=== PATIENT | male | born 1945 | race Hispanic/Latino ===

== ENCOUNTER 2020-04-30 09:30 | Emergency (ER) | payer MEDICARE, OTHER ==
[2020-04-30 12:25] LABS: Absolute Lymphocytes (CBC) 0.4 K/uL (0.7-4.9); Basophils % 0.2 % (0-1.3); Hematocrit 40.5 % (39.6-49.0); MPV 7.1 fL (7.6-11.3); RBC Red Blood Cell Count 4.58 M/uL (4.33-5.43)
[2020-04-30] MEDS ORDERED: NA CHLORIDE 0.9% 250 ML ONE (12:25)
[2020-04-30] MEDS ORDERED: CEFTRIAXONE/SWI 1gm 1 GM/10 ML SYR ONE (12:25)
[2020-04-30] MEDS ORDERED: AZITHROMYCIN 500 MG INJ IVPB ONE (12:25)
[2020-04-30 12:37] LABS: BUN Blood Urea Nitrogen 8 mg/dL (7-18); Bicarbonate 28 mmol/L (21-32); Glucose Level 103 mg/dL (74-106); Sodium Level 134 mmol/L (136-145)
--- NOTE | 2020-04-30 12:41 | RAD REPORT ---
EXAM DESCRIPTION: RAD - Chest Single View - 04/30/2020 11:08 am CLINICAL HISTORY: COUGH Chest pain. COMPARISON: Chest Pa And Lat (2 Views) dated 04/13/2020; CHEST SINGLE VIEW dated 03/14/2007; CHEST PA AN D LAT 2 VIEW dated 08/25/2000 FINDINGS: Portable technique limits examination quality. Moderate bilateral pulmonary opacities are present, most significant in the left upper lobe, most com patible with pneumonia. The heart is normal in size. No displaced fractures.
--- NOTE | 2020-04-30 13:07 | EDPHYS ---
Physician Documentation [facility] Name: Pipo Fabian Age: 74 yrs Sex: Male : 1945 Arrival Date: 04/30/2020 Time: 09:37 Bed 14 Private MD: ED Physician Jarad Hinson HPI: 04/30 10:17 This 74 yrs old Male presents to ER via Ambulatory with complaints of Cough. kb 10:17 The patient or guardian reports cough, that is intermittent, described as mild, with no kb sputum, difficulty breathing. Onset: The symptoms/episode began/occurred 2 week(s) ago. Severity of symptoms: At their worst the symptoms were moderate, in the emergency department the symptoms are unchanged. Modifying factors: The symptoms are alleviated by nothing, the symptoms are aggravated by nothing. Associated signs and symptoms: Pertinent negatives: chest pain, diarrhea, ear ache, fever, nausea, rhinorrhea, sore throat, vomiting. The patient has not experienced similar symptoms in the past. The patient has not recently seen a physician. Pt reports cough and mild shortness of breath for 2 weeks. Has been tested for COVID twice at the [facility], both negative. Historical: - Allergies: 10:00 No Known Allergies; ss - PMHx: 10:00 Anxiety; ss - Immunization history:: Adult Immunizations up to date. - Social history:: Smoking status: Patient denies any tobacco usage or history of. ROS: 10:16 Constitutional: Negative for fever, chills, and weight loss, Neck: Negative for injury, kb pain, and swelling, Cardiovascular: Negative for chest pain, palpitations, and edema, Abdomen/GI: Negative for abdominal pain, nausea, vomiting, diarrhea, and constipation, Back: Negative for injury and pain, MS/Extremity: Negative for injury and deformity, Skin: Negative for injury, rash, and discoloration, Neuro: Negative for headache, weakness, numbness, tingling, and seizure. 10:16 Respiratory: Positive for cough, shortness of breath, Negative for dyspnea on exertion, hemoptysis, orthopnea, pleurisy, sputum production, wheezing. Exam: 10:16 Constitutional: This is a well developed, well nourished patient who is awake, alert, kb and in no acute distress. Head/Face: Normocephalic, atraumatic. Chest/axilla: Normal chest wall appearance and motion. Nontender with no deformity. No lesions are appreciated. Cardiovascular: Regular rate and rhythm with a normal S1 and S2. No gallops, murmurs, or rubs. Normal PMI, no JVD. No pulse deficits. Respiratory: Lungs have equal breath sounds bilaterally, clear to auscultation and percussion. No rales, rhonchi or wheezes noted. No increased work of breathing, no retractions or nasal flaring. Abdomen/GI: Soft, non-tender, with normal bowel sounds. No distension or tympany. No guarding or rebound. No evidence of tenderness throughout. Skin: Warm, dry with normal turgor. Normal color with no rashes, no lesions, and no evidence of cellulitis. MS/ Extremity: Pulses equal, no cyanosis. Neurovascular intact. Full, normal range of motion. Neuro: Awake and alert, GCS 15, oriented to person, place, time, and situation. Cranial nerves II-XII grossly intact. Motor strength 5/5 in all extremities. Sensory grossly intact. Cerebellar exam normal. Normal gait. Vital Signs: 09:57 BP 126 / 77; Pulse 94; Resp 26; Temp 98.5(TE); Pulse Ox 95% on R/A; Pain 0/10; ss 11:00 BP 126 / 74; Pulse 81; Resp 24; Pulse Ox 96% on R/A; ph 12:00 BP 129 / 79; Pulse 85; Resp 22; Pulse Ox 96% on R/A; ll1 13:00 BP 108 / 63; Pulse 82; Resp 21; Pulse Ox 95% ; ll1 14:00 BP 114 / 73; Pulse 80; Resp 21; Pulse Ox 96% ; ll1 14:35 BP 114 / 70; Pulse 83; Resp 20; Temp 98.0; Pulse Ox 96% on R/A; Pain 0/10; ll1 MDM: 09:43 Patient medically screened. jerry 10:17 Data reviewed: vital signs, nurses notes. Data interpreted: Pulse oximetry: on room air kb is 95 %. Interpretation: normal. 13:05 Data reviewed: I have discussed the patient's presentation/case with the attending Emergency Department Physician;. Counseling: I had a detailed discussion with the patient and/or guardian regarding: the historical points, exam findings, and any diagnostic results supporting the discharge/admit diagnosis, lab results, radiology results, the need for outpatient follow up, a family practitioner, to return to the emergency department if symptoms worsen or persist or if there are any questions or concerns that arise at home. ED course: No resp distress. Resp even and unlabored. O2 sat 96-98% on room air. Will discharge with decadron, albuterol inhaler prn, and zithromax. Pt to return for worsening symptoms. 04/30 11:12 Order name: CBC with Diff; Complete Time: 13:15 kb 04/30 11:12 Order name: Basic Metabolic Panel; Complete Time: 12:37 kb 04/30 11:12 Order name: Blood Culture Adult (2) kb 04/30 11:12 Order name: Procalcitonin; Complete Time: 13:00 kb 04/30 11:12 Order name: Lactate; Complete Time: 12:53 kb 04/30 12:26 Order name: CBC Smear Scan; Complete Time: 13:15 EDMS 04/30 09:42 Order name: Chest Single View XRAY; Complete Time: 12:53 kb 04/30 11:12 Order name: IV Start; Complete Time: 12:17 kb 04/30 12:38 Order name: COVID-19 kb Administered Medications: 13:12 Drug: Zithromax 500 mg Route: IVPB; Infused Over: 1 hrs; Site: right antecubital; ll1 14:07 Follow up: Response: No adverse reaction; RASS: Alert and Calm (0); IV Status: ll1 Completed infusion; IV Intake: 250ml 13:12 Drug: Rocephin 1 grams Route: IV; Rate: calculated rate; Site: right antecubital; ll1 14:08 Follow up: Response: No adverse reaction; RASS: Alert and Calm (0); IV Status: ll1 Completed infusion; IV Intake: 20ml 13:49 Drug: Decadron - Dexamethasone 10 mg Route: IVP; Site: right antecubital; ll1 14:23 Follow up: Response: No adverse reaction; RASS: Alert and Calm (0) ll1 Disposition: 18:10 Co-signature as Attending Physician, Jarad PURDY I agree with the assessment and virgilio plan of care. Disposition: 04/30/20 13:06 Discharged to Home. Impression: Pneumonia, unspecified organism. - Condition is Stable. - Discharge Instructions: Community-Acquired Pneumonia, Adult, [id number]. - Prescriptions for Albuterol Sulfate 90 mcg/actuation - inhale 1-2 puff by INHALATION route every 4-6 hours; 1 Inhaler. Zithromax 500 mg Oral Tablet - take 1 tablet by ORAL route once daily for 5 days; 5 tablet. dexamethasone 2 mg Oral tablet - take 1 tablet by ORAL route 3 times per day for 5 days; 15 tablet. - Medication Reconciliation Form, Thank You Letter, Antibiotic Education, Prescription Opioid Use form. - Follow up: Emergency Department; When: As needed; Reason: Worsening of condition. Follow up: Private Physician; When: 2 - 3 days; Reason: Recheck today's complaints, Continuance of care, Re-evaluation by your physician. Addendum: 05/03/2020 07:25 Addendum: Contacted pt \T\ [phone], feeling the same, notified patient of positive COVID-19 rn test result. Return precautions given and understood. [facility] health department will be contacting for further information and prrof of positive test. . Signatures: Dispatcher [employer] EDMS Olivia Freeman, PROCESS CONTROLLER-C PROCESS CONTROLLER-Ckb Jarad Hinson MD MD cha Nieto, Roman, MD MD rn Smirch, Shelby, RN RN ss Lewis, Lynsay, RN RN ll1 Corrections: (The following items were deleted from the chart) 04/30 14:59 13:06 04/30/2020 13:06 Discharged to Home. Impression: Pneumonia, unspecified organism. ll1 Condition is Stable. Forms are Medication Reconciliation Form, Thank You Letter, Antibiotic Education, Prescription Opioid Use. Follow up: Emergency Department; When: As needed; Reason: Worsening of condition. Follow up: Private Physician; When: 2 - 3 days; Reason: Recheck today's complaints, Continuance of care, Re-evaluation by your physician. kb
--- NOTE | 2020-04-30 13:07 | ER ---
Nurse's Notes [facility] Name: Pipo Fabian Age: 74 yrs Sex: Male : 1945 Arrival Date: 04/30/2020 Time: 09:37 Bed 14 Private MD: Diagnosis: Pneumonia, unspecified organism Presentation: 04/30 09:57 Chief complaint: Patient states: painful cough and shortness of breath x 2 weeks. ss Tested negative for covid when symptoms started, and was tested again two days after that at the [facility], but is unsure of those results as of yet. Denies fever. Coronavirus screen: Patient reports a cough. Patient reports shortness of breath or difficulty breathing. Patient denies measured and/or subjective temperature greater than 100.4F prior to today's visit. Patient denies travel on a cruise ship or to a country the [facility] currently lists as an affected area. Patient denies contact with known and/or suspected case of COVID-19. Ebola Screen: Patient denies exposure to infectious person. Patient denies travel to an Ebola-affected area in the 21 days before illness onset. Initial Sepsis Screen: Does the patient meet any 2 criteria? No. Patient's initial sepsis screen is negative. Does the patient have a suspected source of infection? No. Patient's initial sepsis screen is negative. Risk Assessment: Do you want to hurt yourself or someone else? Patient reports no desire to harm self or others. Onset of symptoms was April 15, 2020. 09:57 Method Of Arrival: Ambulatory 09:57 Acuity: DANYA 3 ss Historical: - Allergies: 10:00 No Known Allergies; ss - PMHx: 10:00 Anxiety; ss - Immunization history:: Adult Immunizations up to date. - Social history:: Smoking status: Patient denies any tobacco usage or history of. Screenin:01 Abuse screen: Denies threats or abuse. Denies injuries from another. Nutritional ph screening: No deficits noted. Tuberculosis screening: No symptoms or risk factors identified. Fall Risk None identified. Assessment: 10:59 General: Appears in no apparent distress. comfortable, well groomed, Behavior is calm, ph cooperative, appropriate for age, Denies fever. Pain: Complains of pain in back and chest, with cough. Neuro: Level of Consciousness is awake, alert, obeys commands, Oriented to person, place, time, situation. Cardiovascular: Capillary refill < 3 seconds in bilateral fingers Patient's skin is warm and dry. Respiratory: Reports shortness of breath at rest cough that is persistent Airway is patent Respiratory effort is even, unlabored, Respiratory pattern is tachypnea. GI: No signs and/or symptoms were reported involving the gastrointestinal system. Derm: Skin is intact, is healthy with good turgor, Skin is pink, warm \T\ dry. Musculoskeletal: Circulation, motion, and sensation intact. Range of motion: intact in all extremities. 12:00 Reassessment: Patient appears in no apparent distress at this time. No changes from ll1 previously documented assessment. Patient and/or family updated on plan of care and expected duration. Pain level reassessed. Patient is alert, oriented x 3, equal unlabored respirations, skin warm/dry/pink. 13:00 Reassessment: Patient appears in no apparent distress at this time. No changes from ll1 previously documented assessment. Patient and/or family updated on plan of care and expected duration. Pain level reassessed. Patient is alert, oriented x 3, equal unlabored respirations, skin warm/dry/pink. 14:00 Reassessment: Patient appears in no apparent distress at this time. No changes from ll1 previously documented assessment. Patient and/or family updated on plan of care and expected duration. Pain level reassessed. Patient is alert, oriented x 3, equal unlabored respirations, skin warm/dry/pink. 14:50 Reassessment: Patient appears in no apparent distress at this time. No changes from ll1 previously documented assessment. Patient and/or family updated on plan of care and expected duration. Pain level reassessed. Patient is alert, oriented x 3, equal unlabored respirations, skin warm/dry/pink. Vital Signs: 09:57 BP 126 / 77; Pulse 94; Resp 26; Temp 98.5(TE); Pulse Ox 95% on R/A; Pain 0/10; ss 11:00 BP 126 / 74; Pulse 81; Resp 24; Pulse Ox 96% on R/A; ph 12:00 BP 129 / 79; Pulse 85; Resp 22; Pulse Ox 96% on R/A; ll1 13:00 BP 108 / 63; Pulse 82; Resp 21; Pulse Ox 95% ; ll1 14:00 BP 114 / 73; Pulse 80; Resp 21; Pulse Ox 96% ; ll1 14:35 BP 114 / 70; Pulse 83; Resp 20; Temp 98.0; Pulse Ox 96% on R/A; Pain 0/10; ll1 ED Course: 09:37 Patient arrived in ED. fj1 09:42 Olivia Freeman FNP-C [facility]. kb 09:42 Jarad Hinson MD is Attending Physician. kb 09:48 Lexi Smith RN is Primary Nurse. ph 09:59 Triage completed. ss 10:00 Arm band placed on right wrist. ss 10:26 Chest Single View XRAY In Process Unspecified. EDMS 11:02 Patient has correct armband on for positive identification. Placed in gown. Bed in low ph position. Call light in reach. Side rails up X2. Pulse ox on. NIBP on. Door closed. Noise minimized. Warm blanket given. 12:00 Inserted saline lock: 22 gauge in right antecubital area, using aseptic technique. ll1 Blood collected. 14:50 No provider procedures requiring assistance completed. IV discontinued, intact, ll1 bleeding controlled, No redness/swelling at site. Pressure dressing applied. Administered Medications: 13:12 Drug: Zithromax 500 mg Route: IVPB; Infused Over: 1 hrs; Site: right antecubital; ll1 14:07 Follow up: Response: No adverse reaction; RASS: Alert and Calm (0); IV Status: ll1 Completed infusion; IV Intake: 250ml 13:12 Drug: Rocephin 1 grams Route: IV; Rate: calculated rate; Site: right antecubital; ll1 14:08 Follow up: Response: No adverse reaction; RASS: Alert and Calm (0); IV Status: ll1 Completed infusion; IV Intake: 20ml 13:49 Drug: Decadron - Dexamethasone 10 mg Route: IVP; Site: right antecubital; ll1 14:23 Follow up: Response: No adverse reaction; RASS: Alert and Calm (0) ll1 Intake: 14:07 IV: 250ml; Total: 250ml. ll1 14:08 IV: 20ml; Total: 270ml. ll1 Outcome: 13:06 Discharge ordered by . kb 14:59 Patient left the ED. ll1 15:03 Discharged to home ambulatory. ll1 15:03 Condition: stable 15:03 Discharge instructions given to patient, Instructed on discharge instructions, follow up and referral plans. medication usage, Demonstrated understanding of instructions, follow-up care, medications, Prescriptions given X 3. Signatures: Dispatcher [employer] EDOlivia Rosas, RADIO OPERATOR-C JENNIFER-Claire Rodriguez RN RN ss Lexi Smith RN RN Hu Hough [facility] Omega Pastor RN RN 1
[2020-04-30 13:14] LABS: Blood Morphology Comment NOT SEEN (NOT SEEN); Platelet Estimate ADEQ; Urine White Blood Cell Casts OK
[2020-04-30] MEDS ORDERED: dexAMETHasone 10 MG/ML VIAL ONE (13:32)
[2020-04-30 15:05] VITALS: TEMP 98.5
[2020-04-30 15:10] VITALS: BP 114/73; O2SAT 96
== END 2020-04-30 14:59 | disposition home or self-care (01) ==
LOC: ER 09:30
DX: U07.1 COVID-19 (principal); J18.9 Pneumonia, unspecified organism
CPT/HCPCS: 96365; 96368; 87040 ×2; 85025; 80048; 36415; 83605; 84145; 71045; 96375; 99284; U0001; J0456; J1100; J0696; J7050

== ENCOUNTER 2020-05-03 12:41 | Inpatient (IN) | payer MEDICARE, OTHER ==
--- NOTE | 2020-05-03 14:15 | RAD REPORT ---
EXAM DESCRIPTION: Sarthak Single View05/03/2020 1:53 pm CLINICAL HISTORY: Cough COMPARISON: 04/30/2020 FINDINGS: No significant change in moderate left and [id number] right pulmonary opacities The heart is normal size IMPRESSION: Moderate left and [id number] right pulmonary opacities probably Covid pneumonia
--- NOTE | 2020-05-03 14:21 | ER ---
Nurse's Notes [facility] Name: Pipo Fabian Age: 74 yrs Sex: Male : 1945 Arrival Date: 05/03/2020 Time: 12:43 Bed 15 Private MD: Diagnosis: Pneumonia, unspecified organism;Hypoxemia;Dyspnea, unspecified Presentation: 05/03 13:03 Chief complaint: Patient states: Notified this morning of a positive COVID result, jl7 reports shortness of breath. Coronavirus screen: Patient denies a cough. Patient reports shortness of breath or difficulty breathing. Patient denies measured and/or subjective temperature greater than 100.4F prior to today's visit. Patient denies travel on a cruise ship or to a country the [facility] currently lists as an affected area. Patient denies contact with known and/or suspected case of COVID-19. Patient instructed to continue to wear a mask when interacting with others. Patient moved to private room, placed in contact and droplet isolation with eye protection until further assessment. Prior COVID test collected on: 04-30-2020 results are located within the EHR/EMR. Ebola Screen: No symptoms or risks identified at this time. Initial Sepsis Screen: Does the patient meet any 2 criteria? No. Patient's initial sepsis screen is negative. Does the patient have a suspected source of infection? No. Patient's initial sepsis screen is negative. Risk Assessment: Do you want to hurt yourself or someone else? Patient reports no desire to harm self or others. Onset of symptoms was May 03, 2020. Care prior to arrival: None. 13:03 [facility] Of Ar[facility] 13:03 Acuity: DANYA 2 jl7 Triage Assessment: 13:07 General: Appears in no apparent distress. uncomfortable, Behavior is calm, cooperative, jl7 appropriate for age. Pain: Denies pain. Respiratory: Reports shortness of breath Airway is patent Respiratory effort is even, labored, Respiratory pattern is symmetrical, tachypnea. Historical: - Allergies: 13:07 No Known Allergies; jl7 - PMHx: 13:07 Anxiety; jl7 - Immunization history:: Adult Immunizations unknown. - Social history:: Smoking status: Patient denies any tobacco usage or history of. - Family history:: not pertinent. - Hospitalizations: : No recent hospitalization is reported. Screenin:30 Abuse screen: Denies threats or abuse. Denies injuries from another. Nutritional jr10 screening: No deficits noted. Tuberculosis screening: No symptoms or risk factors identified. Fall Risk IV access (20 points). Ambulatory Aid- None/Bed Rest/Nurse Assist (0 pts). Gait- Normal/Bed Rest/Wheelchair (0 pts) Mental Status- Oriented to own ability (0 pts). Assessment: 14:35 General: Appears in no apparent distress. Behavior is calm, cooperative, appropriate jr10 for age. Pain: Denies pain. Neuro: No deficits noted. Cardiovascular: No deficits noted. Respiratory: Reports shortness of breath at rest on exertion cough that is dry, Airway is patent Respiratory effort is even, unlabored, Respiratory pattern is regular, tachypnea Breath sounds are clear bilaterally. GI: No deficits noted. : No deficits noted. Derm: No deficits noted. Musculoskeletal: No deficits noted. Vital Signs: 13:03 BP 127 / 77; Pulse 76; Resp 29; Temp 98.4; Pulse Ox 89% ; Pain 0/10; jl7 13:11 BP 139 / 82; Pulse 75; Resp 28; Pulse Ox 95% on 2 lpm NC; jr10 14:00 BP 136 / 82; Pulse 69; Resp 24; Pulse Ox 97% on 2 lpm NC; jr10 15:00 BP 133 / 81; Pulse 61; Resp 25; Pulse Ox 97% on 2 lpm NC; jr10 16:00 BP 136 / 84; Pulse 60; Resp 23; Pulse Ox 94% on 2 lpm NC; jr10 16:49 BP 138 / 78; Pulse 60; Resp 24; Pulse Ox 95% on 2 lpm NC; jr10 ED Course: 12:43 Patient arrived in ED. mr 13:06 Triage completed. jl7 13:07 Arm band placed on right wrist. jl7 13:12 Anne Wilson, RN is Primary Nurse. jr10 13:15 Adan Whipple MD is Attending Physician. rn 13:30 Patient has correct armband on for positive identification. Bed in low position. Call jr10 light in reach. Side rails up X2. night monitor on. Pulse ox on. NIBP on. 13:53 CXR XRAY In Process Unspecified. EDMS 14:19 Chase Bhakta MD is Hospitalizing Provider. rn 16:16 No provider procedures requiring assistance completed. Patient admitted, IV remains in jr10 place. intact, No redness/swelling at site. Administered Medications: 15:29 Drug: Decadron - Dexamethasone 10 mg Route: IVP; Site: left antecubital; [facility] 16:17 Follow up: Response: No adverse reaction [facility] Outcome: 14:20 Decision to Hospitalize by Provider. rn 16:15 Admitted to Tele accompanied by tech, via stretcher, room 416, Report called to [facility] MOISES Narvaez 16:15 Condition: improved 16:15 Instructed on the need for admit. 17:16 Patient left the ED. [facility] Signatures: Dispatcher [employer] Anayeli Bang Roman, MD MD rn Leal, Jahala, RN RN jl Anne Wilson RN RN [facility]
--- NOTE | 2020-05-03 14:21 | EDPHYS ---
Physician Documentation [facility] Name: Pipo Fabian Age: 74 yrs Sex: Male : 1945 Arrival Date: 05/03/2020 Time: 12:43 Bed 15 Private MD: ED Physician Adan Whipple HPI: 05/03 13:53 This 74 yrs old Male presents to ER via Ambulatory with complaints of COVID+. rn 13:53 The patient has shortness of breath at rest, with light activity. Onset: The rn symptoms/episode began/occurred today. Duration: The symptoms are continuous. The patient's shortness of breath is aggravated by exertion, light activity. Severity of symptoms: At their worst the symptoms were mild in the emergency department the symptoms are unchanged. The patient has not experienced similar symptoms in the past. The patient has been recently seen by a physician:. Reports notified was COVID + today, reports increased sob but feels cough improving. No fever. + fatigue. . Historical: - Allergies: 13:07 No Known Allergies; jl7 - PMHx: 13:07 Anxiety; jl7 - Immunization history:: Adult Immunizations unknown. - Social history:: Smoking status: Patient denies any tobacco usage or history of. - Family history:: not pertinent. - Hospitalizations: : No recent hospitalization is reported. ROS: 13:53 Constitutional: Negative for fever, chills, and weight loss, Eyes: Negative for injury, rn pain, redness, and discharge, Neck: Negative for injury, pain, and swelling, Cardiovascular: Negative for chest pain, palpitations, and edema, Respiratory: + cough and sob Abdomen/GI: Negative for abdominal pain, nausea, vomiting, diarrhea, and constipation, MS/Extremity: Negative for injury and deformity, Skin: Negative for injury, rash, and discoloration, Neuro: Negative for headache, numbness, tingling, and seizure. Exam: 13:53 Constitutional: This is a well developed, well nourished patient who is awake, alert, rn and in no acute distress. Head/Face: Normocephalic, atraumatic. Cardiovascular: Regular rate and rhythm. No pulse deficits. Respiratory: + tachypnea, diminished at bases, no retractions Abdomen/GI: soft, non-tender Skin: Warm, dry MS/ Extremity: Pulses equal, no cyanosis. Neurovascular intact. Full, normal range of motion. Equal circumference. Neuro: Awake and alert, GCS 15, oriented to person, place, time, and situation. Cranial nerves II-XII grossly intact. Motor strength 5/5 in all extremities. Sensory grossly intact. Cerebellar exam normal. Normal gait. 14:42 ECG was reviewed by the Attending Physician. rn Vital Signs: 13:03 BP 127 / 77; Pulse 76; Resp 29; Temp 98.4; Pulse Ox 89% ; Pain 0/10; jl7 13:11 BP 139 / 82; Pulse 75; Resp 28; Pulse Ox 95% on 2 lpm NC; jr10 14:00 BP 136 / 82; Pulse 69; Resp 24; Pulse Ox 97% on 2 lpm NC; jr10 15:00 BP 133 / 81; Pulse 61; Resp 25; Pulse Ox 97% on 2 lpm NC; jr10 16:00 BP 136 / 84; Pulse 60; Resp 23; Pulse Ox 94% on 2 lpm NC; jr10 16:49 BP 138 / 78; Pulse 60; Resp 24; Pulse Ox 95% on 2 lpm NC; jr10 MDM: 13:15 Patient medically screened. rn 14:19 Differential diagnosis: Bronchitis pneumonia, COVID 19. Data reviewed: vital signs, rn nurses notes, lab test result(s), radiologic studies, plain films, and as a result, I will admit patient. Counseling: I had a detailed discussion with the patient and/or guardian regarding: the historical points, exam findings, and any diagnostic results supporting the discharge/admit diagnosis, lab results, radiology results, the need for further work-up and treatment in the hospital. Response to treatment: the patient's symptoms have mildly improved after treatment, and as a result, I will admit patient. Admission orders: after a detailed discussion of the patient's condition and case, the admit orders are written by me. 05/03 13: Order name: PT-INR; Complete Time: 15:23 rn 05/03 13:22 Order name: Blood Culture Adult (2) rn 05/03 13:22 Order name: BMP; Complete Time: 15:08 rn 05/03 13:22 Order name: C-Reactive Protein; Complete Time: 15:08 rn 05/03 13:22 Order name: CBC with Diff rn 05/03 13:22 Order name: D-Dimer; Complete Time: 15:23 rn 05/03 13:22 Order name: Ferritin; Complete Time: 15:08 rn 05/03 13:22 Order name: Lactate; Complete Time: 15:23 rn 05/03 13:22 Order name: Procalcitonin rn 05/03 13:22 Order name: Ptt, Activated; Complete Time: 15:23 rn 05/03 13:22 Order name: Troponin (emerg Dept Use Only); Complete Time: 15:08 rn 05/03 13:22 Order name: CXR XRAY; Complete Time: 14:18 rn 05/03 15:43 Order name: CBC Smear Scan EDMS 05/03 13:22 Order name: EKG; Complete Time: 13:24 rn 05/03 13:22 Order name: Cardiac monitoring; Complete Time: 14:34 rn 05/03 13:22 Order name: Droplet/Contact Precautions; Complete Time: 14:34 rn 05/03 13:22 Order name: EKG - Nurse/Tech; Complete Time: 14:34 rn 05/03 13:23 Order name: IV Start; Complete Time: 14:35 rn 05/03 13:23 Order name: Labs collected and sent; Complete Time: 14:35 rn 05/03 13:23 Order name: O2 Per Protocol; Complete Time: 14:35 rn 05/03 13:23 Order name: O2 Sat Monitoring; Complete Time: 14:35 rn EC:42 Rate is 64 beats/min. Rhythm is regular. QRS [place] is Normal. TN interval is normal. QRS rn interval is normal. QT interval is normal. No Q waves. T waves are Normal. No ST changes noted. Clinical impression: Normal ECG. Interpreted by me. Reviewed by me. Administered Medications: 15:29 Drug: Decadron - Dexamethasone 10 mg Route: IVP; Site: left antecubital; [facility] 16:17 Follow up: Response: No adverse reaction jr10 Disposition: 05/03/20 14:20 Hospitalization ordered by Chase Bhakta for Inpatient Admission. Preliminary diagnosis are Pneumonia, unspecified organism, Hypoxemia, Dyspnea, unspecified. - Bed requested for Telemetry/MedSurg (Inpatient). - Status is Inpatient Admission. jr10 - Condition is Stable. - Problem is an ongoing problem. - Symptoms are unchanged. Signatures: Dispatcher [email or web address] EDMS Alie Pastor RN RN kl Adan Whipple MD MD rn Attema, Lee, [employer]ELOPER[employer]C [employer]-Cla1 Judah Schmidt RN RN jl7 Anne Wilson RN RN jr10 Corrections: (The following items were deleted from the chart) 15:33 14:20 Hospitalization Ordered by Chase Bhakta MD for Inpatient Admission. Preliminary kl diagnosis is Pneumonia, unspecified organism; Hypoxemia; Dyspnea, unspecified. Bed requested for Telemetry/MedSurg (Inpatient). Status is Inpatient Admission. Condition is Stable. Problem is an ongoing problem. Symptoms are unchanged. rn 17:16 15:33 05/03/2020 14:20 Hospitalization Ordered by Chase Bhakta MD for Inpatient jr10 Admission. Preliminary diagnosis is Pneumonia, unspecified organism; Hypoxemia; Dyspnea, unspecified. Bed requested for Telemetry/MedSurg (Inpatient). Status is Inpatient Admission. Condition is Stable. Problem is an ongoing problem. Symptoms are unchanged. kl
[2020-05-03 14:48] LABS: Absolute Lymphocytes (CBC) 0.4 K/uL (0.7-4.9); Basophils % 0.1 % (0-1.3); MPV 7.1 fL (7.6-11.3); RBC Red Blood Cell Count 4.77 M/uL (4.33-5.43)
[2020-05-03 14:52] LABS: Protime INR 0.99
[2020-05-03 15:06] LABS: BUN Blood Urea Nitrogen 13 mg/dL (7-18); Bicarbonate 26 mmol/L (21-32); Ferritin 457.1 ng/mL (26-388); Glucose Level 150 mg/dL (74-106); Potassium 4.3 mmol/L (3.5-5.1); Sodium Level 135 mmol/L (136-145); Troponin (Emerg Dept Use Only) < 0.02 ng/mL (0.0-0.045)
[2020-05-03] MEDS ORDERED: dexAMETHasone 10 MG/ML VIAL ONE (15:31)
--- NOTE | 2020-05-03 15:37 | P.HP ---
Certification for Inpatient Patient admitted to: Inpatient With expected LOS: >2 Midnights Patient will require the following post-hospital care: None Practitioner: I am a practitioner with admitting privileges, knowledge of patient current condition, hospital course, and medical plan of care. Services: Services provided to patient in accordance with Admission requirements found in Title 42 Section 412.3 of the Code of Federal Regulations <Weston Hutton - Last Filed: 05/03/20 15:30> Patient History Date of Service: 05/03/20 Reason for admission: COVID pneumonia, hypoxia History of Present Illness: 74-year-old female with medical history of hypertension and osteoporosis presents emergency department for worsening shortness of breath. Patient reports that he has been having symptoms for approximately 2 weeks but just found out that is covered test was positive today. Patient reports that he is feeling much more short of breath today as well. During his evaluation in the emergency department patient was found to be hypoxic with a room air saturation approximately 88 %. Patient is also tachypneic with a respiratory rate around 28-32. Patient is doing okay on 4 L per nasal cannula at this time in the emergency department. ED provider wishes to admit patient for further evaluation and management. When I saw the patient in the emergency department he was in mild respiratory distress, tachypneic. Saturations were approximately 92% on 3-4 L per nasal cannula. Patient is amenable to receiving convalescent plasma. Patient will be admitted for further evaluation and management. Case was discussed with pulmonology. - Past Medical/Surgical History Has patient received pneumonia vaccine in the past: No Diabetic: No -: Hyperlipidemia -: Osteoporosis -: Knee surgery Psychosocial/ Personal History: Patient lives at home with his - Family History Family History: Reviewed- Non-Contributory - Social History Smoking Status: Never smoker Alcohol use: No CD- Drugs: No Caffeine use: No Place of Residence: Home <Weston Hutton - Last Filed: 05/03/20 15:30> Date of Service: 05/03/20 <Dean Bhakta - Last Filed: 05/03/20 16:39> Allergies No Known Allergies Allergy (Unverified 06/23/17 20:38) Review of Systems 10-point ROS is otherwise unremarkable Respiratory: Cough, Dry, Shortness of Breath <Weston Hutton - Last Filed: 05/03/20 15:30> Physical Examination - Studies Laboratory Data (last 24 hrs) 05/03/20 14:25: WBC 13.1 H D, Hgb 13.9, Hct 42.0, Plt Count 364 D 05/03/20 14:25: Sodium 135 L, Potassium 4.3, BUN 13, Creatinine 0.73, Glucose 150 H 05/03/20 14:25: PT 11.7, INR 0.99, APTT 28.7 <Weston Hutton - Last Filed: 05/03/20 15:30> - Studies Laboratory Data (last 24 hrs) 05/03/20 14:25: WBC 13.1 H D, Hgb 13.9, Hct 42.0, Plt Count 364 D 05/03/20 14:25: Sodium 135 L, Potassium 4.3, BUN 13, Creatinine 0.73, Glucose 150 H 05/03/20 14:25: PT 11.7, INR 0.99, APTT 28.7 <Dean Bhakta - Last Filed: 05/03/20 16:39> Assessment and Plan - Plan Assessment hypoxia secondary to COVID pneumonia: Hyperlipidemia Plan hypoxia secondary to COVID pneumonia: Discussed case with pulmonology, appreciate input from pulmonology. Patient be admitted for further evaluation and management. Will begin with IV Decadron, oral thiamine, zinc, folic acid, Lasix. Type and screen collected in anticipation of patient receiving convalescent plasma. Will also provide patient with Pulmicort nebulizer. Respiratory therapists crop consultant for daily room air sats, titration of oxygen to 90% saturations. Anticipate clinical improvement next 24 hr, as patient does not improve he may require high-flow oxygen therapy or BiPAP. Hyperlipidemia: Obtain and continue patient's home medications. Discharge Plan: Home Plan to discharge in: 48 Hours - Advance Directives Does patient have a Living Will: No Does patient have a Durable POA for Healthcare: No - Code Status/Comfort Care Code Status Assessed: Yes (Patient is full code) Critical Care: No Time Spent Managing Pts Care (In Minutes): 55 <Weston Hutton - Last Filed: 05/03/20 15:30> Physician Review Additional Text: Patient was seen and examined and findings were discussed Agree with the assessment and plan as documented by the KARON <Dean Bhakta - Last Filed: 05/03/20 16:39>
[2020-05-03 15:43] LABS: Blood Morphology Comment NOT SEEN (NOT SEEN); Platelet Estimate ADEQ; Urine White Blood Cell Casts OK
[2020-05-03] MEDS ORDERED: ACETAMINOPHEN 500 MG TAB PO PRN (17:14)
[2020-05-03] MEDS ORDERED: ONDANSETRON 4 MG/2 ML VIAL IV PRN (17:14)
[2020-05-03] MEDS: dexAMETHasone 4 MG/ML VIAL IV SCH (18:12)
[2020-05-03 18:43] VITALS: BMI 22.3
[2020-05-03] MEDS: BUDESONIDE 0.5 MG/2 ML NEB NEB SCH ×2 (20:25→23:10)
[2020-05-03] MEDS: APIXABAN 5 MG TABLET PO SCH (20:33)
[2020-05-04] MEDS: dexAMETHasone 4 MG/ML VIAL IV SCH ×3 (00:26→17:30)
[2020-05-04 05:13] LABS: Absolute Lymphocytes (CBC) 0.5 K/uL (0.7-4.9); Basophils % 0.1 % (0-1.3); Hematocrit 38.6 % (39.6-49.0); Lymphocytes % 4.6 % (15.3-44.8); MPV 7.2 fL (7.6-11.3); RBC Red Blood Cell Count 4.47 M/uL (4.33-5.43)
[2020-05-04 05:19] LABS: BUN Blood Urea Nitrogen 17 mg/dL (7-18); Bicarbonate 24 mmol/L (21-32); Glucose Level 134 mg/dL (74-106); Magnesium 2.4 mg/dL (1.8-2.4); Potassium 4.2 mmol/L (3.5-5.1); Sodium Level 135 mmol/L (136-145)
--- NOTE | 2020-05-04 07:59 | P.PN ---
Subjective Date of Service: 05/04/20 Chief Complaint: COVID pneumonia, hypoxia Subjective: No new changes, Improving <Weston Hutton - Last Filed: 05/04/20 07:56> Date of Service: 05/04/20 <Dean Bhakta - Last Filed: 05/04/20 12:38> Review of Systems 10-point ROS is otherwise unremarkable Respiratory: Cough, Shortness of Breath <Weston Hutton - Last Filed: 05/04/20 07:56> Physical Examination - Vital Signs Temperature: 97.3 F Blood Pressure: 132/79 Pulse: 68 Respirations: 30 Pulse Ox (%): 95 - Physical Exam General: Alert, In no apparent distress, Oriented x3 HEENT: Atraumatic, Normocephalic Neck: Supple Respiratory: Normal air movement, Diminished Cardiovascular: Normal pulses, Regular rate/rhythm, Normal S1 S2 Capillary refill: <2 Seconds Gastrointestinal: Normal bowel sounds, Soft and benign Musculoskeletal: No contractures, No erythema Integumentary: No significant lesion, No erythema Neurological: Normal gait, Normal speech, Normal strength at 5/5 x4 extr, Normal tone - Studies Laboratory Data (last 24 hrs) 05/03/20 14:25: WBC 13.1 H D, Hgb 13.9, Hct 42.0, Plt Count 364 D 05/03/20 14:25: Sodium 135 L, Potassium 4.3, BUN 13, Creatinine 0.73, Glucose 150 H 05/03/20 14:25: PT 11.7, INR 0.99, APTT 28.7 <Weston Hutton - Last Filed: 05/04/20 07:56> - Studies Laboratory Data (last 24 hrs) 05/03/20 14:25: WBC 13.1 H D, Hgb 13.9, Hct 42.0, Plt Count 364 D 05/03/20 14:25: Sodium 135 L, Potassium 4.3, BUN 13, Creatinine 0.73, Glucose 150 H 05/03/20 14:25: PT 11.7, INR 0.99, APTT 28.7 <Dean Bhakta - Last Filed: 05/04/20 12:38> Assessment & Plan Discharge Plan: Home Plan to discharge in: 48 Hours - Code Status/Comfort Care Code Status Assessed: Yes Physician Review Additional Text: Assessment hypoxia secondary to COVID pneumonia: Hyperlipidemia Plan hypoxia secondary to COVID pneumonia: Discussed case with pulmonology, appreciate input from pulmonology. Patient be admitted for further evaluation and management. Will begin with IV Decadron, oral thiamine, zinc, folic acid, Lasix. Patient did well overnight, currently is requiring 5 L per nasal cannula saturating between 89-91%. Patient still tachypneic in the 20s to 30s. Plan is for patient to receive convalescent plasma today. DVT prophylaxis in place. Hyperlipidemia: Obtain and continue patient's home medications. Critical Care: No Time Spent Managing Pts Care (In Minutes): 55 <Weston Hutton - Last Filed: 05/04/20 07:56> Physician Review Additional Text: Agree with above note Patient was seen and examined Still hypoxic on oxygen support Covid Convalescent plasma ordered Continue steroids and anticoagulation Appreciate help from pulmonology <Dean Bhakta - Last Filed: 05/04/20 12:38>
[2020-05-04] MEDS: BUDESONIDE 0.5 MG/2 ML NEB NEB SCH (08:20)
--- NOTE | 2020-05-04 08:42 | P.PN ---
Subjective Date of Service: 05/04/20 Chief Complaint: COVID pneumonia, hypoxia Patient is 74 years of age multiple medical problems including hypertension admitted with respiratory failure secondary to shook virus infection as requiring high concentrations of oxygen he is also tachypneic Hemodynamically stable Review of Systems is unable to be obtained Physical Examination - Vital Signs Temperature: 97.3 F Blood Pressure: 132/79 Pulse: 68 Respirations: 30 Pulse Ox (%): 95 - Studies Laboratory Data (last 24 hrs) 05/03/20 14:25: WBC 13.1 H D, Hgb 13.9, Hct 42.0, Plt Count 364 D 05/03/20 14:25: Sodium 135 L, Potassium 4.3, BUN 13, Creatinine 0.73, Glucose 150 H 05/03/20 14:25: PT 11.7, INR 0.99, APTT 28.7 Assessment & Plan - Problems (Diagnosis) (1) Pneumonia due to human coronavirus Current Visit: Yes Status: Acute Plan: Patient is 74 years of age admitted with pneumonia due to shook virus labs vital signs reviewed continue to wean off oxygen setup for home O2 instructed the patient to get him up ambulate to see how he is going can manage him with less than 5 L of nasal cannula oxygen possible discharge
--- NOTE | 2020-05-04 08:45 | P.CNS ---
Date of Consult: 05/04/20 Reason for Consult: Respiratory failure due to shook virus Chief Complaint: COVID pneumonia, hypoxia History of Present Illness: Patient is 74 years of age multiple medical problems admitted with worsening dyspnea he is pneumoniae due to coronal virus patient was tested positive is still doing well requiring less than 5 L on nasal cannula oxygen however is a little tachypneic Allergies No Known Allergies Allergy (Verified 05/03/20 21:44) Home Medications: Alendronate Sodium [Fosamax] 70 mg PO SEECOM 05/03/20 Rosuvastatin Calcium 40 mg PO BEDTIME 05/03/20 - Past Medical/Surgical History Diabetic: No -: Hyperlipidemia -: Osteoporosis -: Knee surgery Psychosocial/ Personal History: Patient lives at home with his - Family History Mother Medical History: Hypertension, Other (see notes) Notes: High Cholesterol - Social History Alcohol use: No CD- Drugs: No Caffeine use: No Place of Residence: Home Review of Systems General: Weakness Respiratory: Shortness of Breath Physical Examination Temp Pulse Resp BP Pulse Ox 97.3 F 68 30 H 132/79 95 05/04/20 07:59 05/04/20 07:59 05/04/20 07:59 05/04/20 07:59 05/04/20 07:59 General: Other (Deferred patient is in isolation) Laboratory Data (last 24 hrs) 05/03/20 14:25: WBC 13.1 H D, Hgb 13.9, Hct 42.0, Plt Count 364 D 05/03/20 14:25: Sodium 135 L, Potassium 4.3, BUN 13, Creatinine 0.73, Glucose 150 H 05/03/20 14:25: PT 11.7, INR 0.99, APTT 28.7 - Problems (1) Pneumonia due to human coronavirus Current Visit: Yes Status: Acute Plan: Patient is 74 years of age admitted with pneumonia due to shook virus agree with convalescent plasma continue to monitor titrate O2 possible discharge today as is requiring 2-4 L of nasal cannula oxygen chemistries reviewed hemodynamically stable vital signs satisfactory
[2020-05-04] MEDS: FOLIC ACID 1 MG TABLET PO SCH (08:56)
[2020-05-04] MEDS: APIXABAN 5 MG TABLET PO SCH ×2 (08:56→20:14)
[2020-05-04] MEDS: FUROSEMIDE 20 MG TABLET PO SCH (08:56)
[2020-05-04] MEDS: ZINC SULFATE 220 MG CAP PO SCH (08:56)
[2020-05-04] MEDS: THIAMINE HCL 100 MG TABLET PO SCH (08:57)
[2020-05-04] MEDS ORDERED: NA CHLORIDE 0.9% 50 ML ONE (15:04)
[2020-05-05] MEDS: dexAMETHasone 4 MG/ML VIAL IV SCH ×3 (00:25→16:16)
[2020-05-05 05:06] LABS: Absolute Lymphocytes (CBC) 0.5 K/uL (0.7-4.9)
[2020-05-05 05:11] LABS: Protime INR 1.2
[2020-05-05 05:15] LABS: Hematocrit 39.8 % (39.6-49.0); Lymphocytes % 5.1 % (15.3-44.8); MPV 7.1 fL (7.6-11.3); RBC Red Blood Cell Count 4.56 M/uL (4.33-5.43)
[2020-05-05 05:20] LABS: BUN Blood Urea Nitrogen 19 mg/dL (7-18); Bicarbonate 27 mmol/L (21-32); Glucose Level 120 mg/dL (74-106); Magnesium 2.4 mg/dL (1.8-2.4); Potassium 4.6 mmol/L (3.5-5.1); Sodium Level 135 mmol/L (136-145)
[2020-05-05 08:30] LABS: Anisocytosis 1+; Blood Morphology Comment NOTED (NOT SEEN); Platelet Estimate ADEQ; Poikilocytosis 1+
[2020-05-05] MEDS: BUDESONIDE 0.5 MG/2 ML NEB NEB SCH ×2 (08:40→20:39)
[2020-05-05] MEDS: FOLIC ACID 1 MG TABLET PO SCH (08:41)
[2020-05-05] MEDS: ZINC SULFATE 220 MG CAP PO SCH (08:41)
[2020-05-05] MEDS: APIXABAN 5 MG TABLET PO SCH ×2 (08:41→19:40)
[2020-05-05] MEDS: THIAMINE HCL 100 MG TABLET PO SCH (08:41)
[2020-05-05] MEDS: FUROSEMIDE 20 MG TABLET PO SCH (08:41)
--- NOTE | 2020-05-05 10:55 | P.DS ---
Admission Date: 05/03/20 Discharge Date: 05/05/20 Disposition: ROUTINE DISCHARGE Reason for Admission: COVID pneumonia, hypoxia Consultations: Pulmonology- Dr. Arias Procedures: Chest xray FINDINGS: No significant change in moderate left and [id number] right pulmonary opacities The heart is normal size IMPRESSION: Moderate left and [id number] right pulmonary opacities probably Covid pneumonia Brief History of Present Illness: 74-year-old female with medical history of hypertension and osteoporosis presents emergency department for worsening shortness of breath. Patient reports that he has been having symptoms for approximately 2 weeks but just found out that is covered test was positive today. Patient reports that he is feeling much more short of breath today as well. During his evaluation in the emergency department patient was found to be hypoxic with a room air saturation approximately 88 %. Patient is also tachypneic with a respiratory rate around 28-32. Patient is doing okay on 4 L per nasal cannula at this time in the emergency department. ED provider wishes to admit patient for further evaluation and management. When I saw the patient in the emergency department he was in mild respiratory distress, tachypneic. Saturations were approximately 92% on 3-4 L per nasal cannula. Patient is amenable to receiving convalescent plasma. Patient will be admitted for further evaluation and management. Case was discussed with pulmonology. Hospital Course: Patient was admitted for hypoxia and dyspnea secondary to COVID pneumonia. He has remained on IV corticosteroids, oral vitamin supplements, and oral anticoagulation during his hospitalization. Patient has remained on nasal cannula throughout his stay and has done well. Today patient is down to 3-4L per NC and satting around 94-96%. Patient states he is feeling well. Labs are stable. Patient seen and examined by pulmonology today who believes patient is stable for discharge with home oxygen, prednisone 10mg PO BID for 7 days, Advair inhaler, send RX for eliquis 5mg PO BID, if not approved patient can continue with daily aspirin. Recommend follow up with pulmonology in 1-2 weeks to follow up this hospitalization. Patient will also need to follow up with primary care doctor. Strict return precautions given regarding worsening shortness of breath. Discussed extensively with patient and family. Vital Signs/Physical Exam: Temp Pulse Resp BP Pulse Ox 97 F 55 12 132/75 90 L 05/05/20 05:00 05/05/20 08:41 05/05/20 07:00 05/05/20 08:41 05/05/20 07:00 General: Alert, In no apparent distress HEENT: Atraumatic, PERRLA, EOMI Neck: Supple, JVD not distended Respiratory: Clear to auscultation bilaterally, Normal air movement Cardiovascular: Regular rate/rhythm, Normal S1 S2 Capillary refill: <2 Seconds Gastrointestinal: Normal bowel sounds, No tenderness Musculoskeletal: No tenderness Integumentary: No rashes Neurological: Normal speech, Normal tone, Normal affect Laboratory Data at Discharge: WBC 10.1 K/uL (4.3-10.9) 05/05/20 04:25 Hgb 13.5 g/dL (13.6-17.9) L 05/05/20 04:25 Hct 39.8 % (39.6-49.0) 05/05/20 04:25 Plt Count 379 K/uL (152-406) 05/05/20 04:25 PT 14.1 SECONDS (9.5-12.5) H 05/05/20 04:25 INR 1.20 05/05/20 04:25 APTT 34.5 SECONDS (24.3-36.9) 05/05/20 04:25 Sodium 135 mmol/L (136-145) L 05/05/20 04:25 Potassium 4.6 mmol/L (3.5-5.1) 05/05/20 04:25 BUN 19 mg/dL (7-18) H 05/05/20 04:25 Creatinine 0.73 mg/dL (0.55-1.3) 05/05/20 04:25 Glucose 120 mg/dL (74-106) H 05/05/20 04:25 Magnesium 2.4 mg/dL (1.8-2.4) 05/05/20 04:25 Home Medications: Alendronate Sodium [Fosamax] 70 mg PO SEECOM 05/03/20 Rosuvastatin Calcium 40 mg PO BEDTIME 05/03/20 Apixaban [Eliquis] 5 mg PO BID 14 Days #28 tablet 05/05/20 Fluticasone/Salmeterol [Advair Hfa 115-21 Mcg Inhaler] 12 gm IH BID #1 aer.w.adap 05/05/20 predniSONE [Deltasone*] 10 mg PO BID #14 tab 05/05/20 New Medications: Fluticasone/Salmeterol [Advair Hfa 115-21 Mcg Inhaler] 12 gm IH BID #1 aer.w.adap predniSONE [Deltasone*] 10 mg PO BID #14 tab Apixaban [Eliquis] 5 mg PO BID 14 Days #28 tablet Patient Discharge Instructions: 1. Please Follow up with Pulmonology Dr. Arias in 1-2 weeks via telemedicine visit. 2. Please follow up with your primary care doctor in 1-2 weeks as well. 3. Patient was admitted for hypoxia and dyspnea secondary to COVID pneumonia. He has remained on IV corticosteroids, oral vitamin supplements, and oral anticoagulation during his hospitalization. Patient has remained on nasal cannula throughout his stay and has done well. Today patient is down to 3-4L per NC and satting around 94-96%. Patient states he is feeling well. Labs are stable. Patient seen and examined by pulmonology today who believes patient is stable for discharge with home oxygen, prednisone 10mg PO BID for 7 days, Advair inhaler, send RX for eliquis 5mg PO BID, if not approved patient can continue with daily aspirin. Recommend follow up with pulmonology in 1-2 weeks to follow up this hospitalization. Patient will also need to follow up with primary care doctor. Strict return precautions given regarding worsening shortness of breath. Discussed extensively with patient and family. Diet: Regular Activity: Ad gentry Time spent managing pt's care (in minutes): 55
--- NOTE | 2020-05-05 11:04 | P.PN ---
Subjective Date of Service: 05/05/20 Chief Complaint: COVID pneumonia, hypoxia Subjective: Improving (Patient is doing better now weaned down to nasal cannula oxygen) Review of Systems Respiratory: Shortness of Breath Physical Examination - Vital Signs Temperature: 97 F Blood Pressure: 132/75 Pulse: 55 Respirations: 12 Pulse Ox (%): 90 Assessment & Plan - Problems (Diagnosis) (1) Pneumonia due to human coronavirus Current Visit: Yes Status: Acute Plan: Patient is improving plan to discharge home on oxygen telephone visit with me in 1 or 2 weeks discharge on low-dose steroid low-dose anticoagulation multi vitamin supplement
--- NOTE | 2020-05-05 15:28 | EKG ---
Test Date: 2020-05-03 Test Time: 14:25:48 District Wildlife Manager: RAMILA MEASUREMENT RESULTS: Intervals: Rate: 64 OR: 148 QRSD: 86 QT: 384 QTc: 396 [place]: P: 65 OR: 148 QRS: 64 T: 59 INTERPRETIVE STATEMENTS: Normal sinus rhythm Normal ECG Compared to ECG 06/23/2017 17:42:44 Sinus bradycardia no longer present Electronically Signed On 05-05-20 15:24:36 CDT by Aren Thornton
[2020-05-06] MEDS: dexAMETHasone 4 MG/ML VIAL IV SCH ×2 (00:07→07:42)
[2020-05-06] MEDS: ZINC SULFATE 220 MG CAP PO SCH (07:42)
[2020-05-06] MEDS: APIXABAN 5 MG TABLET PO SCH (07:42)
[2020-05-06] MEDS: FOLIC ACID 1 MG TABLET PO SCH (07:42)
[2020-05-06] MEDS: THIAMINE HCL 100 MG TABLET PO SCH (07:42)
[2020-05-06] MEDS: FUROSEMIDE 20 MG TABLET PO SCH (07:45)
[2020-05-06 07:47] VITALS: BP 135/71
[2020-05-06 08:31] VITALS: TEMP 98.1
[2020-05-06 09:04] VITALS: O2SAT 92
== END 2020-05-06 10:45 | disposition home or self-care (01) | DRG 177 ==
LOC: ER 12:41 → ERHOLD 15:24 → 4TH 16:56 → 3RD-ICU 21:18 → 4TH 05-05 23:26
PROVIDERS: ADMIT Family Medicine; ATTEND Family Medicine
PROC: 8E0ZXY6 Isolation (ICD-10-PCS; 2020-05-03)
PROC: 30233L1 Transfusion of Nonautologous Fresh Plasma into Peripheral Vein, Percutaneous Approach (ICD-10-PCS; principal; 2020-05-04)
DX: U07.1 COVID-19 (principal); J12.89 Other viral pneumonia; I10 Essential (primary) hypertension; E78.5 Hyperlipidemia, unspecified
CPT/HCPCS: 36415; 71045; 80048; 82728; 83605; 83735; 84145; 84484; 85025; 85379; 85610; 85730; 86140; 86850; 86900; 86901; 86927; 87040; 93005; 94640; 96374; 99285; J1100

== ENCOUNTER 2022-02-12 13:47 | Emergency (ER) | payer MEDICARE, OTHER ==
[2022-02-12] MEDS ORDERED: TETANUS & DIPHTHERIA TOX,ADULT 0.5 ML VIAL ONE (14:57)
[2022-02-12] MEDS ORDERED: BUPIVACAINE 0.5% PF 10 ML VIAL ONE (14:57)
--- NOTE | 2022-02-12 16:07 | EDPHYS ---
Physician Documentation [facility] Name: Pipo Fabian Age: 76 yrs Sex: Male : 1945 Arrival Date: 02/12/2022 Time: 13:54 Bed DIS1 Private MD: Scotty Lui ED Physician Adan Whipple HPI: 02/12 14:09 This 76 yrs old Male presents to ER via Ambulatory with complaints of Finger jmm Injury. 14:09 The patient or guardian reports injury. Onset: The symptoms/episode began/occurred jmm acutely, just prior to arrival. Modifying factors: The symptoms are alleviated by nothing, the symptoms are aggravated by nothing. Associated signs and symptoms: Pertinent negatives: decreased sensation distally, fever, numbness distally, tingling distally. Patient states slamming the door on the tip of his left 3rd finger. Denies other injury. Not UTD on tetanus immunizations. . Historical: - Allergies: 14:03 No Known Allergies; ll1 - PMHx: 14:03 Anxiety; Hypercholesterolemia; ll1 - Immunization history:: Client reports receiving the 2nd dose of the Covid vaccine. - Social history:: Smoking status: Patient denies any tobacco usage or history of. ROS: 14:09 Constitutional: Negative for fever, chills, and weight loss, Cardiovascular: Negative jmm for chest pain, palpitations, and edema, Respiratory: Negative for shortness of breath, cough, wheezing, and pleuritic chest pain. 14:09 Skin: Positive for laceration(s). 14:09 All other systems are negative. Exam: 14:09 Constitutional: This is a well developed, well nourished patient who is awake, alert, jmm and in no acute distress. Head/Face: atraumatic. Eyes: EOMI, no conjunctival erythema appreciated ENT: Moist Mucus Membranes Neck: Trachea midline, Supple Chest/axilla: Normal chest wall appearance and motion. Cardiovascular: Regular rate and rhythm. No edema appreciated Respiratory: Normal respirations, no respiratory distress appreciated Abdomen/GI: Non distended, soft Back: Normal ROM Skin: General appearance color normal 14:09 MS/ Extremity: Moves all extremities, no obvious deformities appreciated, no edema noted to the lower extremities Neuro: Awake and alert Psych: Behavior is normal, Mood is normal, Patient is cooperative and pleasant 14:09 Musculoskeletal/extremity: flap approx 2 cm in circumference noted to the left 3rd finger. < 2 sec dis cap refill, NVI. Vital Signs: 14:02 BP 148 / 92; Pulse 69; Resp 17; Temp 97.9; Pulse Ox 96% ; Weight 77.11 kg; Height 5 ft. ll1 3 in. (160.02 cm); Pain 3/10; 14:02 Body Mass Index 30.11 (77.11 kg, 160.02 cm) ll1 Laceration: 16:05 Wound Repair of 2cm ( 0.8in ) subcutaneous laceration to palmar aspect of distal jmm phalanx of left middle finger. Distal neuro/vascular/tendon intact. Anesthesia: Local anesthetic administered with 3 mls of 0.5% marcaine. Wound prep: Simple cleansing with betadine by me. Skin closed with 6 4-0 Prolene using simple sutures and sterile technique. Patient tolerated well. MDM: 14:27 Patient medically screened. [facility] 16:05 Data reviewed: vital signs, nurses notes. Counseling: I had a detailed discussion with shaheen the patient and/or guardian regarding: the historical points, exam findings, and any diagnostic results supporting the discharge/admit diagnosis, the need for outpatient follow up, to return to the emergency department if symptoms worsen or persist or if there are any questions or concerns that arise at home. 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 Exp: ss 12/22/2023. Lot #: [id number]. } Route: IM; Site: right deltoid; 16:09 Follow up: Response: No adverse reaction ss 15:11 Drug: Marcaine (bupivacaine) (0.5 %) 10 ml {Note: administered by PA. Kemi} ss Volume: 10 ml; Route: Infiltration; Disposition: 18:55 Co-signature as Attending Physician, Adan Whipple MD. rn Disposition Summary: 02/12/22 16:07 Discharge Ordered Location: Home [facility] Condition: Stable [facility] Diagnosis - Finger Laceration [facility] Followup: [facility] - With: Private Physician - When: 10 - 14 days - Reason: Recheck today's complaints, Continuance of care, Staple/Suture removal, Re-evaluation by your physician Discharge Instructions: - Discharge Summary Sheet [facility] - Laceration Care, Adult [facility] Forms: - Medication Reconciliation Form jmm - Thank You Letter jmm - Antibiotic Education jmm - Prescription Opioid Use yohan Signatures: Dispatcher [employer] EDMS Moustapha Roy PA PA jmm Nieto, Roman, MD MD rn Smirch, Shelby, RN RN ss Omega Pastor RN RN ll1 Corrections: (The following items were deleted from the chart) 14:27 14:10 Hand Left 3 View+RAD.RAD.BRZ ordered. EDMS EDMS
--- NOTE | 2022-02-12 16:07 | ER ---
Nurse's Notes [facility] Name: Pipo Fabian Age: 76 yrs Sex: Male : 1945 Arrival Date: 02/12/2022 Time: 13:54 Bed DIS1 Private MD: Scotty Lui Diagnosis: Finger Laceration Presentation: 02/12 14:02 Chief complaint: Patient states: Crush injury L hand 3rd digit. 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 Bleeding controlled. Coronavirus screen: Vaccine status: Patient reports receiving the 2nd dose of the covid vaccine. Client denies travel out of the [place] in the last 14 days. At this time, the client does not indicate any symptoms associated with coronavirus-19. Ebola Screen: Patient denies travel to an Ebola-affected area in the 21 days before illness onset. Initial Sepsis Screen: Does the patient meet any 2 criteria? No. Patient's initial sepsis screen is negative. Does the patient have a suspected source of infection? No. Patient's initial sepsis screen is negative. Risk Assessment: Do you want to hurt yourself or someone else? Patient reports no desire to harm self or others. Onset of symptoms was February 12, 2022. 14:02 Method Of Arrival: Ambulatory ll1 14:02 Acuity: DANYA 4 ll1 Triage Assessment: 14:04 General: Appears uncomfortable, Behavior is cooperative, appropriate for age. Pain: ll1 Complains of pain in left hand Quality of pain is described as aching. Musculoskeletal: Reports pain in left hand. Injury Description: Crush injury. Historical: - Allergies: 14:03 No Known Allergies; ll1 - PMHx: 14:03 Anxiety; Hypercholesterolemia; ll1 - Immunization history:: Client reports receiving the 2nd dose of the Covid vaccine. - Social history:: Smoking status: Patient denies any tobacco usage or history of. Screenin:08 Abuse screen: Denies threats or abuse. Denies injuries from another. Nutritional ss screening: No deficits noted. Tuberculosis screening: Never had TB. Fall Risk None identified. Assessment: 15:02 General: Appears in no apparent distress. comfortable, Behavior is calm, cooperative. ss Pain: Complains of pain in palmar aspect of distal phalanx of left middle finger. Neuro: Garcia Agitation-Sedation Scale (RASS): 0 - Alert and Calm Level of Consciousness is awake, alert, obeys commands. Cardiovascular: Capillary refill < 3 seconds is brisk in bilateral fingers. Respiratory: Airway is patent Respiratory effort is even, unlabored, Respiratory pattern is regular, symmetrical. Derm: Skin is intact, is healthy with good turgor, Skin is dry, Skin is pink, warm \T\ dry. normal. Vital Signs: 14:02 BP 148 / 92; Pulse 69; Resp 17; Temp 97.9; Pulse Ox 96% ; Weight 77.11 kg; Height 5 ft. ll1 3 in. (160.02 cm); Pain 3/10; 14:02 Body Mass Index 30.11 (77.11 kg, 160.02 cm) ll1 ED Course: 13:54 Patient arrived in ED. am2 13:55 Scotty Lui MD is Private Physician. am2 14:03 Triage completed. ll1 14:04 Arm band placed on. 1 14:08 Moustapha Roy PA is PHCP. [facility] 14:08 Adan Whipple MD is Attending Physician. [facility] 15:07 Claire Bynum, MOISES is Primary Nurse. ss 15:08 Patient has correct armband on for positive identification. Bed in low position. Call ss light in reach. 16:07 No provider procedures requiring assistance completed. Assist provider with laceration ss repair on palmar aspect of distal phalanx of left middle finger that was 2.5 cm. or less using sutures. Set up tray. Performed by Moustapha KILGORE Dressed with [place]ont, Neosporin, Patient tolerated well. Patient did not have IV access during this emergency room visit. 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 Exp: ss 12/22/2023. Lot #: [id number]. } Route: IM; Site: right deltoid; 16:09 Follow up: Response: No adverse reaction ss 15:11 Drug: Marcaine (bupivacaine) (0.5 %) 10 ml {Note: administered by JAME Mcmullen.} ss Volume: 10 ml; Route: Infiltration; Outcome: 16:07 Discharge ordered by . [facility] 16:08 Discharged to home ambulatory. ss 16:08 Condition: good 16:08 Discharge instructions given to patient, Instructed on discharge instructions, follow up and referral plans. wound care, Demonstrated understanding of instructions, follow-up care. 16:09 Patient left the ED. Signatures: Moustapha Roy PA PA jmm Smirch, Shelby RN RN Joellen Norman Lynsay, RN RN ll1
[2022-02-12 18:00] VITALS: BP 148/92; TEMP 97.9; O2SAT 96
== END 2022-02-12 16:09 | disposition home or self-care (01) ==
LOC: ER 13:47
PROC: 0JQK0ZZ Repair Left Hand Subcutaneous Tissue and Fascia, Open Approach (ICD-10-PCS; principal; 2022-02-12)
DX: S61.213A Laceration without foreign body of left middle finger without damage to nail, initial encounter (principal); W23.0XXA Caught, crushed, jammed, or pinched between moving objects, initial encounter; Z23 Encounter for immunization
CPT/HCPCS: 90471; 90714; 99283

== ENCOUNTER 2022-02-25 07:48 | Emergency (ER) | payer OTHER ==
--- NOTE | 2022-02-25 08:17 | EDPHYS ---
Physician Documentation [facility] Name: Pipo Fabian Age: 76 yrs Sex: Male : 1945 Arrival Date: 02/25/2022 Time: 07:51 Bed 30 Private MD: MAICOL Physician Jarad Hinson HPI: 02/25 08:08 This 76 yrs old Male presents to ER via Ambulatory with complaints of Suture virgilio Removal. 08:08 The patient has sutures on the left hand. Previous treatment: The patient was initially virgilio treated 1 week. Sutures/rashawn progress: The patient has no c/o's. The wound is well-healing with no redness, swelling, discharge, or dehiscence reported. The patient has not experienced similar symptoms in the past. Historical: - Allergies: 08:03 No Known Allergies; jd3 - PMHx: 08:03 Anxiety; Hypercholesterolemia; jd3 - Immunization history:: Adult Immunizations unknown. - Social history:: Smoking status: unknown. ROS: 08:09 Constitutional: Negative for fever, chills, and weight loss, Eyes: Negative for injury, virgilio pain, redness, and discharge, ENT: Negative for injury, pain, and discharge, Neck: Negative for injury, pain, and swelling, Cardiovascular: Negative for chest pain, palpitations, and edema, Respiratory: Negative for shortness of breath, cough, wheezing, and pleuritic chest pain, Abdomen/GI: Negative for abdominal pain, nausea, vomiting, diarrhea, and constipation, Back: Negative for injury and pain, : Negative for injury, bleeding, discharge, and swelling, Skin: Negative for injury, rash, and discoloration, Neuro: Negative for headache, weakness, numbness, tingling, and seizure, Psych: Negative for depression, anxiety, suicide ideation, homicidal ideation, and hallucinations, Allergy/Immunology: Negative for hives, rash, and allergies, Endocrine: Negative for neck swelling, polydipsia, polyuria, polyphagia, and marked weight changes, Hematologic/Lymphatic: Negative for swollen nodes, abnormal bleeding, and unusual bruising. 08:09 MS/extremity: Positive for pain. Exam: 08:09 Constitutional: This is a well developed, well nourished patient who is awake, alert, virgilio and in no acute distress. Head/Face: Normocephalic, atraumatic. Eyes: Pupils equal round and reactive to light, extra-ocular motions intact. Lids and lashes normal. Conjunctiva and sclera are non-icteric and not injected. Cornea within normal limits. Periorbital areas with no swelling, redness, or edema. ENT: Nares patent. No nasal discharge, no septal abnormalities noted. Tympanic membranes are normal and external auditory canals are clear. Oropharynx with no redness, swelling, or masses, exudates, or evidence of obstruction, uvula midline. Mucous membranes moist. Neck: Trachea midline, no thyromegaly or masses palpated, and no cervical lymphadenopathy. Supple, full range of motion without nuchal rigidity, or vertebral point tenderness. No Meningismus. Chest/axilla: Normal chest wall appearance and motion. Nontender with no deformity. No lesions are appreciated. Cardiovascular: Regular rate and rhythm with a normal S1 and S2. No gallops, murmurs, or rubs. Normal PMI, no JVD. No pulse deficits. Respiratory: Lungs have equal breath sounds bilaterally, clear to auscultation and percussion. No rales, rhonchi or wheezes noted. No increased work of breathing, no retractions or nasal flaring. Abdomen/GI: Soft, non-tender, with normal bowel sounds. No distension or tympany. No guarding or rebound. No evidence of tenderness throughout. Back: No spinal tenderness. No costovertebral tenderness. Full range of motion. Male : Normal genitalia with no discharge or lesions. Skin: Warm, dry with normal turgor. Normal color with no rashes, no lesions, and no evidence of cellulitis. Neuro: Awake and alert, GCS 15, oriented to person, place, time, and situation. Cranial nerves II-XII grossly intact. Motor strength 5/5 in all extremities. Sensory grossly intact. Cerebellar exam normal. Normal gait. Psych: Awake, alert, with orientation to person, place and time. Behavior, mood, and affect are within normal limits. 08:09 Musculoskeletal/extremity: ROM: intact in all extremities, full active range of motion, full passive range of motion, Circulation is intact in all extremities. Sensation intact. Compartment Syndrome exam of affected extremity: is normal. Vital Signs: 08:03 BP 132 / 79; Pulse 80; Resp 18 S; Temp 97.8(TE); Pulse Ox 97% on R/A; Weight 68.04 kg jd3 (R); Height 5 ft. 3 in. (160.02 cm) (R); Pain 0/10; 08:03 Body Mass Index 26.57 (68.04 kg, 160.02 cm) jd3 Procedures: 08:15 Suture/Staple removal: Removed 5 sutures, from left hand, site appears well healed, virgilio dressed with band aid, Neosporin, Patient tolerated well. MDM: 07:54 Patient medically screened. [facility] 08:15 Data reviewed: vital signs, nurses notes. [facility] 02/25 08:08 Order name: Suture Removal; Complete Time: 08:19 virgilio Administered Medications: 08:19 Not Given (Physician Discretion): Neosporin ([id number]) Ointment 1 jd3 application Topical once Disposition Summary: 02/25/22 08:16 Discharge Ordered Location: Home virgilio Problem: new virgilio Symptoms: are resolved virgilio Condition: Stable virgilio Diagnosis - Encounter for removal of sutures virgilio Followup: virgilio - With: Private Physician - When: 2 - 3 days - Reason: Recheck today's complaints, Continuance of care, Re-evaluation by your physician Discharge Instructions: - Discharge Summary Sheet virgilio - Laceration Care, Adult virg[facility] - Suture Removal, Care After virgilio - Laceration Care, Adult, [id number] [facility] Forms: - Medication Reconciliation Form virgilio - Thank You Letter virgilio - Antibiotic Education virgilio - Prescription Opioid Use virgilio Signatures: Jarad Hinson MD MD cha Davies, Jonathon RN RN jd3
--- NOTE | 2022-02-25 08:17 | ER ---
Nurse's Notes [facility] Name: Pipo Fabian Age: 76 yrs Sex: Male : 1945 Arrival Date: 02/25/2022 Time: 07:51 Bed 30 Private MD: Diagnosis: Encounter for removal of sutures Presentation: 02/25 08:02 Chief complaint: Patient states: "I need to get my stitches out.". Coronavirus screen: jd3 At this time, the client does not indicate any symptoms associated with coronavirus-19. Ebola Screen: No symptoms or risks identified at this time. Initial Sepsis Screen: Does the patient meet any 2 criteria? No. Patient's initial sepsis screen is negative. Does the patient have a suspected source of infection? No. Patient's initial sepsis screen is negative. Risk Assessment: Do you want to hurt yourself or someone else? Patient reports no desire to harm self or others. 08:02 Method Of Arrival: Ambulatory jd3 08:02 Acuity: DANYA 5 jd3 08:46 Onset of symptoms was February 25, 2022. jd3 Historical: - Allergies: 08:03 No Known Allergies; jd3 - PMHx: 08:03 Anxiety; Hypercholesterolemia; jd3 - Immunization history:: Adult Immunizations unknown. - Social history:: Smoking status: unknown. Screenin:46 Abuse screen: Denies threats or abuse. Nutritional screening: No deficits noted. jd3 Tuberculosis screening: No symptoms or risk factors identified. Fall Risk Ambulatory Aid- None/Bed Rest/Nurse Assist (0 pts). Gait- Normal/Bed Rest/Wheelchair (0 pts) Mental Status- Oriented to own ability (0 pts). Total Morales Fall Scale indicates No Risk (0-24 pts). Assessment: 08:45 General: Appears in no apparent distress. comfortable, Behavior is calm, cooperative, jd3 appropriate for age, provider at bedside removing sutures form left hand finger. site is clean and dry.. Pain: Denies pain. Neuro: Garcia Agitation-Sedation Scale (RASS): 0 - Alert and Calm Level of Consciousness is awake, alert, obeys commands, Oriented to person, place, time, situation. Cardiovascular: Capillary refill < 3 seconds Patient's skin is warm and dry. Respiratory: Airway is patent Respiratory effort is even, unlabored, Respiratory pattern is regular, symmetrical. GI: No signs and/or symptoms were reported involving the gastrointestinal system. : No signs and/or symptoms were reported regarding the genitourinary system. EENT: No signs and/or symptoms were reported regarding the EENT system. Derm: Skin is intact, Skin is dry, Skin is normal, Skin temperature is warm. Musculoskeletal: Circulation, motion, and sensation intact. Range of motion: intact in all extremities. Vital Signs: 08:03 BP 132 / 79; Pulse 80; Resp 18 S; Temp 97.8(TE); Pulse Ox 97% on R/A; Weight 68.04 kg jd3 (R); Height 5 ft. 3 in. (160.02 cm) (R); Pain 0/10; 08:03 Body Mass Index 26.57 (68.04 kg, 160.02 cm) jd3 ED Course: 07:51 Patient arrived in ED. ds1 07:53 Jarad Hinson MD is Attending Physician. virgilio 07:55 Arm band placed on Patient placed in an exam room, on a stretcher. ll1 07:57 Felice Rivas, RN is Primary Nurse. jd3 08:03 Triage completed. jd3 08:46 Patient has correct armband on for positive identification. Bed in low position. Call jd3 light in reach. Side rails up X 1. Pulse ox on. NIBP on. 08:46 No provider procedures requiring assistance completed. Patient did not have IV access jd3 during this emergency room visit. Administered Medications: 08:19 Not Given (Physician Discretion): Neosporin ([id number]) Ointment 1 jd3 application Topical once Medication: 08:46 VIS not applicable for this client. jd3 Outcome: 08:16 Discharge ordered by . virgilio 08:46 Discharged to home ambulatory. jd3 08:46 Condition: stable 08:46 Discharge instructions given to patient, Instructed on discharge instructions, follow up and referral plans. Demonstrated understanding of instructions, follow-up care. 08:48 Patient left the ED. jd3 Signatures: Jarad Hinson MD MD cha Sanford, Demi ds1 Felice Rivas RN RN Omega Figueroa RN RN ll1 Corrections: (The following items were deleted from the chart) 08:47 08:45 General: Appears in no apparent distress. comfortable, Behavior is calm, jd3 cooperative, appropriate for age, jd3 08:47 08:46 No provider procedures requiring assistance completed. jd3 jd3
[2022-02-25 08:57] VITALS: BP 132/79; TEMP 97.8; O2SAT 97
== END 2022-02-25 08:48 | disposition home or self-care (01) ==
LOC: ER 07:48
DX: Z48.02 Encounter for removal of sutures (principal)
CPT/HCPCS: 99283

== ENCOUNTER 2022-12-30 19:08 | Emergency (ER) | payer OTHER ==
--- OUTSIDE RECORDS SUMMARY | 2022-12-30 19:18 | XMS REPORT | Continuity of Care Document ---
:[address] [facility] t Address [address] [place] [id number] Care Team Providers Name Role Phone [facility]_C Attending Clinician Unavailable [facility]PCN_Walk-In Attending Clinician Unavailable Abhilash Boucher Attending Clinician [phone] [facility]_C Admitting Clinician Unavailable [facility]_Walk-In Admitting Clinician Unavailable Payers Payer Name Policy Type Policy Number Effective Date Expiration Date Allyson ferrari [facility] - [id number] 2022 MEDICA (MEDICARE 00:00:00 REPLACEMENT HMO) Problems Condition Condition Condition Status Onset Resolution Last Treating Co mments Source Name Details Category Date Date Treatment Clinician Date Osteoporos Osteoporos Problem Active 2021-10 [facility] is is 2 Medical 00:00: 00 Benign Benign Problem Active 2021-10 [facility] prostatic 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 Social History Smoking Status Start Date Stop Date Source Never Smoker [facility] Medications Ordered Filled Start Stop Current Ordering Indication Dosage Frequency Signature Comments Components Source Medication Medication Date Date Medication? Clinician (SIG) Name Name alendronate alendronate No 1 Q1W alendronat [facility] 70 mg 70 mg e 70 mg Medical tablet Take tablet Take tablet 1 tablet 1 tablet Take 1 every week every week tablet by oral by oral every week route. route. by oral route. benzonatate benzonatate No 1capsul TID benzonatat [facility] 200 mg 200 mg e(s) e 200 mg Medical capsule capsule capsule Take 1 Take 1 Take 1 capsule 3 capsule 3 capsule 3 times a day times a day times a by oral by oral day by route as route as oral route needed. needed. as needed. lisinopril lisinopril No 1 Q1D lisinopril [facility] 10 mg 10 mg 10 mg Medical tablet Take tablet Take tablet 1 tablet 1 tablet Take 1 every day every day tablet by oral by oral every day route. route. by oral route. loratadine loratadine No 1 Q1D loratadine [facility] 10 mg 10 mg 10 mg Medical tablet Take tablet Take tablet 1 tablet 1 tablet Take 1 every day every day tablet by oral by oral every day route. route. by oral route. rosuvastati rosuvastati No 1 Q1D rosuvastat [facility] n 40 mg n 40 mg in 40 mg Medic al tablet Take tablet Take tablet 1 tablet 1 tablet Take 1 every day every day tablet by oral by oral every day route at route at by oral dinner. dinner. route at dinner. tamsulosin tamsulosin No 1capsul BID tamsulosin [facility] 0.4 mg 0.4 mg e(s) 0.4 mg Medical capsule capsule capsule Take 1 Take 1 Take 1 capsule capsule capsule twice a day twice a day twice a by oral by oral day by route. route. oral route. alendronate alendronate No 1 Q1W alendronat [facility] 70 mg 70 mg e 70 mg Medical tablet Take tablet Take tablet 1 tablet 1 tablet Take 1 every week every week tablet by oral by oral every week route. route. by oral route. benzonatate benzonatate No 1capsul TID benzonatat [facility] 200 mg 200 mg e(s) e 200 mg Medical capsule capsule capsule Take 1 Take 1 Take 1 capsule 3 capsule 3 capsule 3 times a day times a day times a by oral by oral day by route as route as oral route needed. needed. as needed. lisinopril lisinopril No 1 Q1D lisinopril [facility] 10 mg 10 mg 10 mg Medical tablet Take tablet Take tablet 1 tablet 1 tablet Take 1 every day every day tablet by oral by oral every day route. route. by oral route. loratadine loratadine No 1 Q1D loratadine [facility] 10 mg 10 mg 10 mg Medical tablet Take tablet Take tablet 1 tablet 1 tablet Take 1 every day every day tablet by oral by oral every day route. route. by oral route. promethazin promethazin No 5mL Q5H promethazi [facility] e-DM 6.25 e-DM 6.25 ne-DM 6.25 Medical mg-15 mg/5 mg-15 mg/5 mg-15 mg/5 mL oral mL oral mL oral syrup Take syrup Take syrup Take 5 mL every 5 mL every 5 mL every 4-6 hours 4-6 hours 4-6 hours by oral by oral by oral route. route. route. rosuvastati rosuvastati No 1 Q1D rosuvastat [facility] n 40 mg n 40 mg in 40 mg Medic al tablet Take tablet Take tablet 1 tablet 1 tablet Take 1 every day every day tablet by oral by oral every day route at route at by oral dinner. dinner. route at dinner. tamsulosin tamsulosin No 1capsul BID tamsulosin [facility] 0.4 mg 0.4 mg e(s) 0.4 mg Medical capsule capsule capsule Take 1 Take 1 Take 1 capsule capsule capsule twice a day twice a day twice a by oral by oral day by route. route. oral route. alendronate alendronate No 1 Q1W alendronat [facility] 70 mg 70 mg e 70 mg Medical tablet Take tablet Take tablet 1 tablet 1 tablet Take 1 every week every week tablet by oral by oral every week route. route. by oral route. benzonatate benzonatate No 1capsul TID benzonatat [facility] 200 mg 200 mg e(s) e 200 mg Medical capsule capsule capsule Take 1 Take 1 Take 1 capsule 3 capsule 3 capsule 3 times a day times a day times a by oral by oral day by route as route as oral route needed. needed. as needed. lisinopril lisinopril No 1 Q1D lisinopril [facility] 10 mg 10 mg 10 mg Medical tablet Take tablet Take tablet 1 tablet 1 tablet Take 1 every day every day tablet by oral by oral every day route. route. by oral route. loratadine loratadine No 1 Q1D loratadine [facility] 10 mg 10 mg 10 mg Medical tablet Take tablet Take tablet 1 tablet 1 tablet Take 1 every day every day tablet by oral by oral every day route. route. by oral route. rosuvastati rosuvastati No 1 Q1D rosuvastat [facility] n 40 mg n 40 mg in 40 mg Medic al tablet Take tablet Take tablet 1 tablet 1 tablet Take 1 every day every day tablet by oral by oral every day route at route at by oral dinner. dinner. route at dinner. tamsulosin tamsulosin No 1capsul BID tamsulosin [facility] 0.4 mg 0.4 mg e(s) 0.4 mg Medical capsule capsule capsule Take 1 Take 1 Take 1 capsule capsule capsule twice a day twice a day twice a by oral by oral day by route. route. oral route. Trelegy Trelegy No 1puff(s Q1D Trelegy [facility] via [facility] 100 Ellipta 100 ) [facility] mcg-62.5 mcg-62.5 100 mcg-25 mcg mcg-25 mcg mcg-62.5 powder for powder for mcg-25 mcg inhalation inhalation powder for Inhale 1 Inhale 1 inhalation puff every puff every Inhale 1 day by day by puff every inhalation inhalation day by route. route. inhalation route. alendronate alendronate No 1 Q1W alendronat [facility] 70 mg 70 mg e 70 mg Medical tablet Take tablet Take tablet 1 tablet 1 tablet Take 1 every week every week tablet by oral by oral every week route. route. by oral route. benzonatate benzonatate No 1capsul TID benzonatat [facility] 200 mg 200 mg e(s) e 200 mg Medical capsule capsule capsule Take 1 Take 1 Take 1 capsule 3 capsule 3 capsule 3 times a day times a day times a by oral by oral day by route as route as oral route needed. needed. as needed. lisinopril lisinopril No 1 Q1D lisinopril [facility] 10 mg 10 mg 10 mg Medical tablet Take tablet Take tablet 1 tablet 1 tablet Take 1 every day every day tablet by oral by oral every day route. route. by oral route. loratadine loratadine No 1 Q1D loratadine [facility] 10 mg 10 mg 10 mg Medical tablet Take tablet Take tablet 1 tablet 1 tablet Take 1 every day every day tablet by oral by oral every day route. route. by oral route. rosuvastati rosuvastati No 1 Q1D rosuvastat [facility] n 40 mg n 40 mg in 40 mg Medic al tablet Take tablet Take tablet 1 tablet 1 tablet Take 1 every day every day tablet by oral by oral every day route at route at by oral dinner. dinner. route at dinner. tamsulosin tamsulosin No 1capsul BID tamsulosin [facility] 0.4 mg 0.4 mg e(s) 0.4 mg Medical capsule capsule capsule Take 1 Take 1 Take 1 capsule capsule capsule twice a day twice a day twice a by oral by oral day by route. route. oral route. Trelegy Trelegy No 1puff(s Q1D Trelegy [facility] via [facility] 100 Ellipta 100 ) [facility] mcg-62.5 mcg-62.5 100 mcg-25 mcg mcg-25 mcg mcg-62.5 powder for powder for mcg-25 mcg inhalation inhalation powder for Inhale 1 Inhale 1 inhalation puff every puff every Inhale 1 day by day by puff every inhalation inhalation day by route. route. inhalation route. alendronate alendronate No 1 Q1W alendronat [facility] 70 mg 70 mg e 70 mg Medical tablet Take tablet Take tablet 1 tablet 1 tablet Take 1 every week every week tablet by oral by oral every week route. route. by oral route. benzonatate benzonatate No 1capsul TID benzonatat [facility] 200 mg 200 mg e(s) e 200 mg Medical capsule capsule capsule Take 1 Take 1 Take 1 capsule 3 capsule 3 capsule 3 times a day times a day times a by oral by oral day by route as route as oral route needed. needed. as needed. cephalexin cephalexin No 1capsul BID cephalexin [facility] 500 mg 500 mg e(s) 500 mg Medical capsule capsule capsule Take 1 Take 1 Take 1 capsule capsule capsule twice a day twice a day twice a by oral by oral day by route for 7 route for 7 oral route days. days. for 7 days. lisinopril lisinopril No 1 Q1D lisinopril [facility] 10 mg 10 mg 10 mg Medical tablet Take tablet Take tablet 1 tablet 1 tablet Take 1 every day every day tablet by oral by oral every day route. route. by oral route. loratadine loratadine No 1 Q1D loratadine [facility] 10 mg 10 mg 10 mg Medical tablet Take tablet Take tablet 1 tablet 1 tablet Take 1 every day every day tablet by oral by oral every day route. route. by oral route. rosuvastati rosuvastati No 1 Q1D rosuvastat [facility] n 40 mg n 40 mg in 40 mg Medic al tablet Take tablet Take tablet 1 tablet 1 tablet Take 1 every day every day tablet by oral by oral every day route at route at by oral dinner. dinner. route at dinner. tamsulosin tamsulosin No 1capsul BID tamsulosin [facility] 0.4 mg 0.4 mg e(s) 0.4 mg Medical capsule capsule capsule Take 1 Take 1 Take 1 capsule capsule capsule twice a day twice a day twice a by oral by oral day by route. route. oral route. Trelegy Trelegy No 1puff(s Q1D Trelegy [facility] via [facility] 100 Ellipta 100 ) [facility] mcg-62.5 mcg-62.5 100 mcg-25 mcg mcg-25 mcg mcg-62.5 powder for powder for mcg-25 mcg inhalation inhalation powder for Inhale 1 Inhale 1 inhalation puff every puff every Inhale 1 day by day by puff every inhalation inhalation day by route. route. inhalation route. alendronate alendronate No 1 Q1W alendronat [facility] 70 mg 70 mg e 70 mg Medical tablet Take tablet Take tablet 1 tablet 1 tablet Take 1 every week every week tablet by oral by oral every week route. route. by oral route. celecoxib celecoxib No 1capsul Q1D celecoxib [facility] 200 mg 200 mg e(s) 200 mg Medical capsule capsule capsule Take 1 Take 1 Take 1 capsule capsule capsule every day every day every day by oral by oral by oral route as route as route as needed. needed. needed. Cipro 250 Cipro 250 No 1 Q12H Cipro 250 [facility] mg tablet mg tablet mg tablet Medical Take 1 Take 1 Take 1 tablet tablet tablet every 12 every 12 every 12 hours by hours by hours by oral route. oral route. oral route. loratadine loratadine No 1 Q1D loratadine [facility] 10 mg 10 mg 10 mg Medical tablet Take tablet Take tablet 1 tablet 1 tablet Take 1 every day every day tablet by oral by oral every day route. route. by oral route. rosuvastati rosuvastati No 1 Q1D rosuvastat [facility] n 40 mg n 40 mg in 40 mg Medic al tablet Take tablet Take tablet 1 tablet 1 tablet Take 1 every day every day tablet by oral by oral every day route at route at by oral dinner. dinner. route at dinner. tamsulosin tamsulosin No 1capsul BID tamsulosin [facility] 0.4 mg 0.4 mg e(s) 0.4 mg Medical capsule capsule capsule Take 1 Take 1 Take 1 capsule capsule capsule twice a day twice a day twice a by oral by oral day by route. route. oral route. alendronate alendronate No 1 Q1W alendronat [facility] 70 mg 70 mg e 70 mg Medical tablet Take tablet Take tablet 1 tablet 1 tablet Take 1 every week every week tablet by oral by oral every week route. route. by oral route. benzonatate benzonatate No 1capsul TID benzonatat [facility] 200 mg 200 mg e(s) e 200 mg Medical capsule capsule capsule Take 1 Take 1 Take 1 capsule 3 capsule 3 capsule 3 times a day times a day times a by oral by oral day by route as route as oral route needed. needed. as needed. celecoxib celecoxib No 1capsul Q1D celecoxib [facility] 200 mg 200 mg e(s) 200 mg Medical capsule capsule capsule Take 1 Take 1 Take 1 capsule capsule capsule every day every day every day by oral by oral by oral route as route as route as needed. needed. needed. rosuvastati rosuvastati No 1 Q1D rosuvastat [facility] n 40 mg n 40 mg in 40 mg Medic al tablet Take tablet Take tablet 1 tablet 1 tablet Take 1 every day every day tablet by oral by oral every day route at route at by oral dinner. dinner. route at dinner. tamsulosin tamsulosin No 1capsul BID tamsulosin [facility] 0.4 mg 0.4 mg e(s) 0.4 mg Medical capsule capsule capsule Take 1 Take 1 Take 1 capsule capsule capsule twice a day twice a day twice a by oral by oral day by route. route. oral route. alendronate alendronate No 1 Q1W alendronat [facility] 70 mg 70 mg e 70 mg Medical tablet Take tablet Take tablet 1 tablet 1 tablet Take 1 every week every week tablet by oral by oral every week route. route. by oral route. celecoxib celecoxib No 1capsul Q1D celecoxib [facility] 200 mg 200 mg e(s) 200 mg Medical capsule capsule capsule Take 1 Take 1 Take 1 capsule capsule capsule every day every day every day by oral by oral by oral route as route as route as needed. needed. needed. loratadine loratadine No 1 Q1D loratadine [facility] 10 mg 10 mg 10 mg Medical tablet Take tablet Take tablet 1 tablet 1 tablet Take 1 every day every day tablet by oral by oral every day route. route. by oral route. rosuvastati rosuvastati No 1 Q1D rosuvastat [facility] n 40 mg n 40 mg in 40 mg Medic al tablet Take tablet Take tablet 1 tablet 1 tablet Take 1 every day every day tablet by oral by oral every day route at route at by oral dinner. dinner. route at dinner. tamsulosin tamsulosin No 1capsul BID tamsulosin [facility] 0.4 mg 0.4 mg e(s) 0.4 mg Medical capsule capsule capsule Take 1 Take 1 Take 1 capsule capsule capsule twice a day twice a day twice a by oral by oral day by route. route. oral route. alendronate alendronate No 1 Q1W alendronat [facility] 70 mg 70 mg e 70 mg Medical tablet Take tablet Take tablet 1 tablet 1 tablet Take 1 every week every week tablet by oral by oral every week route. route. by oral route. celecoxib celecoxib No 1capsul Q1D celecoxib [facility] 200 mg 200 mg e(s) 200 mg Medical capsule capsule capsule Take 1 Take 1 Take 1 capsule capsule capsule every day every day every day by oral by oral by oral route as route as route as needed. needed. needed. Cipro 250 Cipro 250 No 1 Q12H Cipro 250 [facility] mg tablet mg tablet mg tablet Medical Take 1 Take 1 Take 1 tablet tablet tablet every 12 every 12 every 12 hours by hours by hours by oral route. oral route. oral route. dicyclomine dicyclomine No 1 TID dicyclomin [facility] 20 mg 20 mg e 20 mg Medical tablet Take tablet Take tablet 1 tablet 3 1 tablet 3 Take 1 times a day times a day tablet 3 by oral by oral times a route as route as day by needed. needed. oral route as needed. loratadine loratadine No 1 Q1D loratadine [facility] 10 mg 10 mg 10 mg Medical tablet Take tablet Take tablet 1 tablet 1 tablet Take 1 every day every day tablet by oral by oral every day route. route. by oral route. ondansetron ondansetron No 1 Q5H ondansetro [facility] 4 mg 4 mg n 4 mg Medical disintegrat disintegrat disintegra ing tablet ing tablet ting Place 1 Place [address] 1 every 4-6 every 4-6 tablet hours by hours by every 4-6 translingua translingua hours by l route as l route as translingu needed. needed. al route as needed. rosuvastati rosuvastati No 1 Q1D rosuvastat [facility] n 40 mg n 40 mg in 40 mg Medic al tablet Take tablet Take tablet 1 tablet 1 tablet Take 1 every day every day tablet by oral by oral every day route at route at by oral dinner. dinner. route at dinner. tamsulosin tamsulosin No 1capsul BID tamsulosin [facility] 0.4 mg 0.4 mg e(s) 0.4 mg Medical capsule capsule capsule Take 1 Take 1 Take 1 capsule capsule capsule twice a day twice a day twice a by oral by oral day by route. route. oral route. alendronate alendronate No 1 Q1W alendronat [facility] 70 mg 70 mg e 70 mg Medical tablet Take tablet Take tablet 1 tablet 1 tablet Take 1 every week every week tablet by oral by oral every week route. route. by oral route. lisinopril lisinopril No 1 Q1D lisinopril [facility] 10 mg 10 mg 10 mg Medical tablet Take tablet Take tablet 1 tablet 1 tablet Take 1 every day every day tablet by oral by oral every day route. route. by oral route. loratadine loratadine No 1 Q1D loratadine [facility] 10 mg 10 mg 10 mg Medical tablet Take tablet Take tablet 1 tablet 1 tablet Take 1 every day every day tablet by oral by oral every day route. route. by oral route. rosuvastati rosuvastati No 1 Q1D rosuvastat [facility] n 40 mg n 40 mg in 40 mg Medic al tablet Take tablet Take tablet 1 tablet 1 tablet Take 1 every day every day tablet by oral by oral every day route at route at by oral dinner. dinner. route at dinner. tamsulosin tamsulosin No 1capsul BID tamsulosin [facility] 0.4 mg 0.4 mg e(s) 0.4 mg Medical capsule capsule capsule Take 1 Take 1 Take 1 capsule capsule capsule twice a day twice a day twice a by oral by oral day by route. route. oral route. Immunizations Ordered Immunization Filled Immunization Date Status Commen ts Source Name Name Pneumococcal Pneumococcal 2018-10-13 Completed [facility] Conjugate, Conjugate, 00:00:00 unspecified unspecified formulation formulation Pneumococcal Pneumococcal 2018-10-13 Completed [facility] Conjugate, Conjugate, 00:00:00 unspecified unspecified formulation formulation Pneumococcal Pneumococcal 2018-10-13 Completed [facility] Conjugate, Conjugate, 00:00:00 unspecified unspecified formulation formulation Pneumococcal Pneumococcal 2018-10-13 Completed [facility] Conjugate, Conjugate, 00:00:00 unspecified unspecified formulation formulation Pneumococcal Pneumococcal 2018-10-13 Completed [facility] Conjugate, Conjugate, 00:00:00 unspecified unspecified formulation formulation Pneumococcal Pneumococcal 2018-10-13 Completed [facility] Conjugate, Conjugate, 00:00:00 unspecified unspecified formulation formulation Pneumococcal Pneumococcal 2018-10-13 Completed [facility] Conjugate, Conjugate, 00:00:00 unspecified unspecified formulation formulation Pneumococcal Pneumococcal 2018-10-13 Completed [facility] Conjugate, Conjugate, 00:00:00 unspecified unspecified formulation formulation Pneumococcal Pneumococcal 2018-10-13 Completed [facility] Conjugate, Conjugate, 00:00:00 unspecified unspecified formulation formulation Pneumococcal Pneumococcal 2018-10-13 Completed [facility] Conjugate, Conjugate, 00:00:00 unspecified unspecified formulation formulation Vital Signs Vital Name Observation Time Observation Value Comments Source BP Diastolic 2022-12-23 00:00:00 78 mm[Hg] [facility] Height 2022-12-23 00:00:00 63 [in_i] [facility] BMI (Body Mass Index) 2022-12-23 00:00:00 22 kg/m2 [facility] Medical BP Systolic 2022-12-23 00:00:00 143 mm[Hg[facility] 2022-12-23 00:00:00 1984 [oz_av] [facility] BP Diastolic 2022-11-26 00:00:00 82 mm[Hg] [facility] Height 2022-11-26 00:00:00 63 [in_i] [facility] BMI (Body Mass Index) 2022-11-26 00:00:00 23.6 kg/m2 [facility] BP Systolic 2022-11-26 00:00:00 145 mm[Hg] [facility] Body Weight 2022-11-26 00:00:00 2128 [oz_av] [facility] BP Diastolic 2022-09-20 00:00:00 85 mm[Hg] [facility] Height 2022-09-20 00:00:00 63 [in_i] [facility] BMI (Body Mass Index) 2022-09-20 00:00:00 23 kg/m2 [facility] BP Systolic 2022-09-20 00:00:00 146 mm[Hg] [facility] Body Weight 2022-09-20 00:00:00 2080 [oz_av] [facility] BP Diastolic 2022-07-04 00:00:00 89 mm[Hg] [facility] Height 2022-07-04 00:00:00 63 [in_i] [facility] BMI (Body Mass Index) 2022-07-04 00:00:00 23 kg/m2 [facility] BP Systolic 2022-07-04 00:00:00 157 mm[Hg] [facility] Body Weight 2022-07-04 00:00:00 2080 [oz_av] [facility] BP Diastolic 2022-05-31 00:00:00 71 mm[Hg] [facility] Height 2022-05-31 00:00:00 63 [in_i] [facility] BMI (Body Mass Index) 2022-05-31 00:00:00 23.1 kg/m2 [facility] BP Systolic 2022-05-31 00:00:00 127 mm[Hg] [facility] Body Weight 2022-05-31 00:00:00 2082 [oz_av] [facility] BP Diastolic 2022-04-04 00:00:00 84 mm[Hg] [facility] Height 2022-04-04 00:00:00 63 [in_i] [facility] BMI (Body Mass Index) 2022-04-04 00:00:00 23.2 kg/m2 [facility] BP Systolic 2022-04-04 00:00:00 166 mm[Hg] [facility] ed[facility] Body Weight 2022-04-04 00:00:00 2098 [oz_av] [facility] edical Procedures Procedure Date / Time Performed Performing Clinician [facility] e BONE DENSITY MEASUREMENT 2022-12-23 00:00:00 [facility] via Medical USING DEDICATED X RAY MACHINE CT, chest, w/o contrast 2022-11-26 00:00:00 [facility] ia Medical Colonoscopy with Biopsy 2019-11-13 00:00:00 [facility] Orthopedic - Knee Surgery 2007-10-13 00:00:00 [facility] Plan of Care Planned Activity Planned Date Details Comments Source Diagnostic Test 2022-12-23 00:00:00 lipid panel, serum [facility] Pending [code = lipid panel, serum] Diagnostic Test 2022-12-23 00:00:00 CBC w/ auto diff [facility] Pending [code = CBC w/ auto diff] Diagnostic Test 2022-12-23 00:00:00 CMP, serum or plasma [facility] Pending [code = CMP, serum or plasma] Diagnostic Test 2022-12-23 00:00:00 urinalysis, complete [facility] Pending [code = urinalysis, complete] Encounters Start End Encounter Admission Attending Care Care Encounter Source Date/Time Date/Time Type Type Clinicians Facility Department ID 2022-12-23 2022-12-23 [facility] [id number] [facility] 00:00:00 00:00:00 [facility] gold PA: [id number] [facility] [address], [place] [address] , Ph. 2022-11-28 2022-11-28 Outpatient [facility]_Cama PRIV PRIV [id number] [facility] 00:00:00 00:00:00 cho_C [id number] Medica l 2022-11-26 2022-11-26 Outpatient [facility]_Cama PRIV PRIV [id number] [facility] 00:00:00 00:00:00 cho_C [id number] Medica l 2022-11-26 2022-11-26 Sridevi [facility] - [facility] [id number] [facility] 00:00:00 00:00:[address] [facility] - Me dical PA: [id number] GC_CPC_Need [facility] [address] [place] [address] , Ph. 2022-11-12 2022-11-12 Outpatient [facility]_Cama PRIV PRIV [id number] [facility] 00:00:00 00:00:00 cho_C [id number] Medica l 2022-11-12 2022-11-12 [place] [facility] 131 [facility] 00:00:00 00:00:00 Man [facility] PA-C: [id number] [facility] Office* [place] [id number] , Ph. 2022-11-11 2022-11-11 Outpatient GC_CPCN_Wal PRIV PRIV [id number] [facility] 00:00:00 00:00:00 k-In [id number] Medica l 2022-10-14 2022-10-14 Outpatient [facility]_Wal PRIV PRIV [id number] [facility] 00:00:00 00:00:00 k-In [id number] Medica l 2022-09-20 2022-09-20 Outpatient [facility]_Wal PRIV PRIV [id number] [facility] 00:00:00 00:00:00 k-In [id number] Medica l 2022-09-20 2022-09-20 [facility]hilash [facility] [id number] [facility] 00:00:00 00:00:00 S[facility] Med ical [employer]ER [employer] TESTER: [id number] GC_CPCN_Nee [facility] [address], Office* [place] [address] , Ph. 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 2022-08-15 2022-08-15 Outpatient GC_CPCN_Wal PRIV PRIV [id number] [facility] 00:00:00 00:00:00 k-In [id number] Medica l 2022-08-14 2022-08-14 Outpatient PRIV PRIV [id number] [facility] 00:00:00 00:00:00 [id number] Medica l 2022-07-24 2022-07-24 Outpatient [facility] PRIV PRIV [id number] [facility] 00:00:00 00:00:00 k-In [id number] Medica l 2022-07-22 2022-07-22 Outpatient [facility] PRIV PRIV [id number] [facility] 00:00:00 00:00:00 k-In [id number] Medica l 2022-07-04 2022-07-04 Outpatient [facility] PRIV PRIV [id number] [facility] 00:00:00 00:00:00 k-In [id number] Medica l 2022-07-04 2022-07-[address] [facility] 22 [facility] 00:00:00 00:00:00 [facility] [employer] SE[employer]ER AND TESTER: [id number] GC[facility] [address], Office* [place] [address] , Ph. 2022-06-24 2022-06-24 Outpatient [facility]_Wal PRIV PRIV [id number] [facility] 00:00:00 00:00:00 k-In [id number] Medica l 2022-05-31 2022-05-31 Outpatient [facility]_Wal PRIV PRIV [id number] [facility] 00:00:00 00:00:00 k-In [id number] Medica l 2022-05-31 2022-05-31 Outpatient Boucher, PRIV PRIV [id number] 00:00:00 00:00:00 Abhilash [id number] 2022-05-31 2022-05-31 Abhilash [facility] 00:00[facility]00 [facility]:00:[facility] [employer] [facility] [employer]: [id number] [facility] [address], Office* [place] [address] , Ph. 2022-05-27 2022-05-27 Outpatient [facility]_Wal PRIV PRIV [id number] [facility] 00:00:00 00:00:00 k-In [id number] Medica l 2022-04-29 2022-04-29 Outpatient [facility]_Wal PRIV PRIV [id number] [facility] 12:56:00 12:56:00 k-In [id number] Medica l 2022-04-04 2022-04-04 Outpatient [facility] PRIV PRIV [id number] [facility] 10:13:00 10:13:00 k-In [id number] Medica l 2022-04-04 2022-04-04 Outpatient Boucher, PRIV PRIV [id number] 00:00:00 00:00:00 Abhilash [id number] 2022-04-04 2022-04-04 Abhilash [facility] 00:00:00 00:00:[facility] [employer] [employer]: [id number] [facility]_N[facility] [address], Office* [place] [address] , Ph. Results This patient has no known results.
[2022-12-30] MEDS ORDERED: BUPIVACAINE 0.5% PF 10 ML VIAL ONE (21:29)
[2022-12-30] MEDS ORDERED: HYDROCODONE/APAP 7.5/325 MG TAB ONE (21:29)
[2022-12-30] MEDS ORDERED: LIDOCAINE 1% MPF 30 ML VIAL ONE (21:30)
[2022-12-30] MEDS ORDERED: IBUPROFEN 400 MG TAB ONE (21:30)
--- NOTE | 2022-12-30 21:57 | RAD REPORT ---
EXAM DESCRIPTION: RAD -Hand Left 3 View - 12/30/2022 9:39 pm CLINICAL HISTORY: Left hand pain status post injury FINDINGS: Avulsion fracture first terminal tuft No dislocation
--- NOTE | 2022-12-30 23:34 | EDPHYS ---
Physician Documentation [facility] Name: Pipo Fabian Age: 77 yrs Sex: Male : 1945 Arrival Date: 12/30/2022 Time: 19:17 Bed 23 Private MD: ED Physician Ledy Fountain HPI: 12/30 21:00 This 77 yrs old Male presents to ER via Ambulatory with complaints of Finger cp Injury. 21:00 The patient or guardian complains of a crush injury, car door, deformity, pain, that is cp acute. The complaints affect the distal phalanx left thumb. Context: resulted from a crush injury, by a car door. Onset: The symptoms/episode began/occurred today. Treatment prior to arrival includes: pressure dressing. Associated signs and symptoms: The patient has no apparent associated signs or symptoms. Historical: - Allergies: 19:59 No Known Allergies; as6 - PMHx: 19:59 Anxiety; Hypercholesterolemia; as6 - PSHx: 19:59 back; as6 - Immunization history:: Client reports receiving the 2nd dose of the Covid vaccine, moderna . - Social history:: Smoking status: Patient denies any tobacco usage or history of. ROS: 21:05 Constitutional: Negative for body aches, chills, fever, poor PO intake. cp 21:05 Cardiovascular: Negative for chest pain. cp 21:05 Respiratory: Negative for cough, shortness of breath, wheezing. 21:05 MS/extremity: Positive for injury or acute deformity, of the distal phalanx left thumb, Negative for decreased range of motion, paresthesias. 21:05 Neuro: Negative for numbness, weakness. 21:05 All other systems are negative. Exam: 21:10 Constitutional: The patient appears in no acute distress, alert, awake, non-toxic, well cp developed, well nourished, uncomfortable. 21:10 Head/Face: Normocephalic, atraumatic. cp 21:10 Cardiovascular: Rate: normal. 21:10 Respiratory: the patient does not display signs of respiratory distress, Respirations: normal, no use of accessory muscles, no retractions, labored breathing, is not present. 21:10 Musculoskeletal/extremity: Extremities: grossly normal except: noted in the distal phalanx left thumb: deformity, pain, swelling, tenderness, nail almost completely from nail bed, mild bleeding noted, marked tenderness of left distal thumb phalanx, small laceration noted radial side of thumb, left thumb neurovascular intact, Nails: Vital Signs: 19:56 BP 144 / 81; Pulse 77; Resp 18 S; Temp 98.1(O); Pulse Ox 98% on R/A; Weight 63.5 kg; as6 Height 5 ft. 3 in. ; Pain 310; 12/31 00:29 BP 138 / 100; Pulse 64; Resp 16 S; Temp 98.4(O); Pulse Ox 97% on R/A; bb 12/30 19:56 Body Mass Index 24.80 (63.50 kg, 160.02 cm) as6 12/30 19:56 Pain Scale: Adult as6 Procedures: 12/30 23:35 nail replaced using 4-0 Prolene, single figure eight suture. cp Laceration: 23:34 Wound Repair of 2cm ( 0.8in ) subcutaneous laceration to left thumb nailbed. cp Irregularly shaped.. Distal neuro/vascular/tendon intact. Anesthesia: Digital block administered with 8 mls of Lido/Marcaine. Wound prep: Moderate cleansing by me, Wound irrigation by me. Skin closed with 5 nail bed Vicryl using interrupted sutures and sterile technique. Skin closed with 1 4-0 Prolene using interrupted sutures and sterile technique. Dressed with Bacitracin. Patient tolerated well. MDM: 20:37 Patient medically screened. cp 21:00 Differential diagnosis: dislocation, open fracture, closed fracture, contusion. cp 23:32 Data reviewed: vital signs, nurses notes, radiologic studies, plain films. cp 23:32 Consideration of Admission/Observation Escalation of care including cp admission/observation considered. 23:32 Counseling: I had a detailed discussion with the patient and/or guardian regarding: the cp historical points, exam findings, and any diagnostic results supporting the discharge/admit diagnosis, radiology results, the need for outpatient follow up, for definitive care, a hand specialist, to return to the emergency department if symptoms worsen or persist or if there are any questions or concerns that arise at home. 23:32 Response to treatment: the patient's symptoms have markedly improved after treatment, cp and as a result, I will discharge patient. Special discussion: I discussed in detail with the patient the higher chance of wound infection based on his presenting history. 12/30 20:38 Order name: XRAY Hand LEFT 3 View; Complete Time: 22:02 cp 12/30 22:02 Interpretation: Report reviewed. cp 12/30 20:38 Order name: Dressing - Wound; Complete Time: 21:28 cp 12/30 20:38 Order name: Gloves, Sterile; Complete Time: 21:28 cp 12/30 20:38 Order name: Setup Suture Tray; Complete Time: : cp 12/30 23:28 Order name: Wound dressing; Complete Time: 00:12 cp 12/30 23:28 Order name: Finger Splint; Complete Time: 00:11 cp Administered Medications: 21:27 Drug: Hydrocodone-Acetaminophen PO (7.5 mg-325 mg) 1 tabs Route: PO; bb 22:40 Follow up: Response: No adverse reaction bb 23:01 Follow up: Response: No adverse reaction bb 21:28 Drug: Ibuprofen PO 800 mg Route: PO; bb 23:01 Follow up: Response: No adverse reaction bb 23:34 Follow up: Response: No adverse reaction bb 23:04 Drug: Bupivacaine Infiltration (0.5 %) 10 ml {Note: administered by Jarad KILGORE to bb affected area.} Volume: 10 ml; Route: Infiltration; 23:05 Drug: Lidocaine Infiltration (1 %) 10 ml {Note: administered by Jarad KILGORE to bb affected area.} Volume: 20 ml; Route: Infiltration; 12/31 00:12 Drug: CeFAZolin IM 1 grams Route: IM; Site: left gluteus; bb 00:29 Follow up: Response: No adverse reaction bb Disposition Summary: 12/30/22 23:33 Discharge Ordered Location: Home cp Problem: new cp Symptoms: have improved cp Condition: Stable cp Diagnosis - Displaced fracture of distal phalanx of left thumb, initial encounter for open cp fracture Followup: cp - With: Jarod Calix MD - When: 2 - 3 days - Reason: Wound Recheck Discharge Instructions: - Discharge Summary Sheet cp - Thumb Fracture cp Forms: - Medication Reconciliation Form cp - Thank You Letter cp - Antibiotic Education cp - Prescription Opioid Use cp Prescriptions: - Cephalexin 500 mg Oral Capsule - take 1 capsule by ORAL route every 6 hours for 10 days; 40 capsule; Refills: 0, cp Product Selection Permitted - Ibuprofen 800 mg Oral Tablet - take 1 tablet by ORAL route every 8 hours As needed take with food; 30 tablet; cp Refills: 0, Product Selection Permitted - Tramadol 50 mg Oral Tablet - take 1 tablet by ORAL route every 8 hours as needed; 12 tablet; Refills: 0, cp Product Selection Permitted Signatures: Dispatcher [employer] Maria Guadalupe Su RN RN bb Jarad Beltran PA PA cp Slawson, Ashby, RN RN as6 Corrections: (The following items were deleted from the chart) :12/30 21:22 nail replaced using 4-0 Prolene, single figure eight suture. cp cp 12/31 21: 21:21 Wound Repair of 2cm ( 0.8in ) subcutaneous laceration to left thumb nailbed. cp Irregularly shaped.. Distal neuro/vascular/tendon intact. Anesthesia: Digital block administered with 8 mls of Lido/Marcaine. Wound prep: Moderate cleansing by me, Wound irrigation by me. Skin closed with 5 nail bed Vicryl using interrupted sutures and sterile technique. Skin closed with 1 4-0 Prolene using interrupted sutures and sterile technique. Dressed with Bacitracin. Patient tolerated well. cp
--- NOTE | 2022-12-30 23:34 | ER ---
Nurse's Notes [facility] Name: Pipo Fabian Age: 77 yrs Sex: Male : 1945 Arrival Date: 12/30/2022 Time: 19:17 Bed 23 Private MD: Diagnosis: Displaced fracture of distal phalanx of left thumb, initial encounter for open fracture Presentation: 12/30 19:56 Chief complaint: Patient states: left thumb got slammed in the door. Coronavirus as6 screen: At this time, the client does not indicate any symptoms associated with coronavirus-19. Ebola Screen: No symptoms or risks identified at this time. Initial Sepsis Screen: Does the patient meet any 2 criteria? No. Patient's initial sepsis screen is negative. Does the patient have a suspected source of infection? No. Patient's initial sepsis screen is negative. Risk Assessment: Do you want to hurt yourself or someone else? Patient reports no desire to harm self or others. Onset of symptoms was December 30, 2022. 19:56 Method Of Arrival: Ambulatory as6 19:56 Acuity: DANYA 4 as6 Triage Assessment: 20:00 General: Appears in no apparent distress. Behavior is calm, cooperative. Pain: as6 Complains of pain in dorsal aspect of distal phalanx of left thumb and palmar aspect of distal phalanx of left thumb. Historical: - Allergies: 19:59 No Known Allergies; as6 - PMHx: 19:59 Anxiety; Hypercholesterolemia; as6 - PSHx: 19:59 back; as6 - Immunization history:: Client reports receiving the 2nd dose of the Covid vaccine, moderna . - Social history:: Smoking status: Patient denies any tobacco usage or history of. Screenin:59 [facility] ED Fall Risk Assessment (Adult) History of falling in the last 3 months, bb including since admission No falls in past 3 months (0 pts) Confusion or Disorientation No (0 pts) Intoxicated or Sedated No (0 pts) Impaired Gait No (0 pts) Score/Fall Risk Level 0 - 2 = Low Risk Oriented to surroundings, Maintained a safe environment. Abuse screen: Denies threats or abuse. Nutritional screening: No deficits noted. Tuberculosis screening: No symptoms or risk factors identified. Assessment: 20:35 General: Appears in no apparent distress. uncomfortable, Behavior is calm, cooperative. bb Pain: Complains of pain in left hand. Neuro: Level of Consciousness is awake, alert, obeys commands, Oriented to person, place, time, situation. Cardiovascular: Capillary refill < 3 seconds Patient's skin is warm and dry. Respiratory: Respiratory effort is even, unlabored, Respiratory pattern is regular. GI: No signs and/or symptoms were reported involving the gastrointestinal system. Derm: Skin is pink, warm \T\ dry. Musculoskeletal: Circulation, motion, and sensation intact. bandage to left hand clean, dry and intact. 12/31 00:13 Reassessment: Patient is alert, oriented x 3, equal unlabored respirations, skin bb warm/dry/pink. thumbnail in place to left thumb suture intact. Pt verbalized understanding of and agrees to plan of care discharge instructions given. 00:30 Reassessment: Patient is alert, oriented x 3, equal unlabored respirations, skin bb warm/dry/pink. pt ambulated with steady gait to exit accompanied by spouse. Vital Signs: 12/30 19:56 BP 144 / 81; Pulse 77; Resp 18 S; Temp 98.1(O); Pulse Ox 98% on R/A; Weight 63.5 kg; as6 Height 5 ft. 3 in. ; Pain 3/10; 12/31 00:29 BP 138 / 100; Pulse 64; Resp 16 S; Temp 98.4(O); Pulse Ox 97% on R/A; bb 12/30 19:56 Body Mass Index 24.80 (63.50 kg, 160.02 cm) as6 12/30 19:56 Pain Scale: Adult as6 ED Course: 12/30 19:17 Patient arrived in ED. rg4 19:59 Triage completed. as6 20:00 Arm band placed on. as6 20:02 Jraad Beltran PA is PHCP. cp 20:02 Ledy Fountain MD is Attending Physician. cp 21:41 XRAY Hand LEFT 3 View In Process Unspecified. EDMS 22:58 Maria Guadalupe Tran, MOISES is Primary Nurse. bb 22:59 Patient has correct armband on for positive identification. bb 22:59 Assist provider with laceration repair on left hand using sutures. Set up tray. bb Performed by Jarad KILGORE. 23:32 Jarod Calix MD is Referral Physician. cp 12/31 00:12 Dressings: Tube gauze Stockinette X 1; left thumb. bb 00:12 finger splint applied to left thumb. bb 00:31 Patient did not have IV access during this emergency room visit. bb Administered Medications: 12/30 21:27 Drug: Hydrocodone-Acetaminophen PO (7.5 mg-325 mg) 1 tabs Route: PO; bb 22:40 Follow up: Response: No adverse reaction bb 23:01 Follow up: Response: No adverse reaction bb 21:28 Drug: Ibuprofen PO 800 mg Route: PO; bb 23:01 Follow up: Response: No adverse reaction bb 23:34 Follow up: Response: No adverse reaction bb 23:04 Drug: Bupivacaine Infiltration (0.5 %) 10 ml {Note: administered by Jarad KILGORE to bb affected area.} Volume: 10 ml; Route: Infiltration; 23:05 Drug: Lidocaine Infiltration (1 %) 10 ml {Note: administered by Jarad KILGORE to bb affected area.} Volume: 20 ml; Route: Infiltration; 12/31 00:12 Drug: CeFAZolin IM 1 grams Route: IM; Site: left gluteus; bb 00:29 Follow up: Response: No adverse reaction bb Medication: 12/30 22:59 VIS not applicable for this client. bb Outcome: 23:33 Discharge ordered by . cp 12/31 00:30 Discharged to home ambulatory, with family. bb Condition: stable Discharge instructions given to patient, family, Instructed on discharge instructions, follow up and referral plans. no driving heavy equipment, medication usage, Demonstrated understanding of instructions, follow-up care, medications, Prescriptions given X 3. 00:31 Patient left the ED. bb Signatures: Dispatcher [employer] EDMS Maria Guadalupe Tran RN RN Jarad Hanson PA PA cp Garcia, Rubi rg4 Mio Franz RN RN as6
[2022-12-30] MEDS ORDERED: CEFAZOLIN SODIUM 1 GM/VIAL ONE (23:55)
[2022-12-30] MEDS ORDERED: WATER FOR INJ,STERILE 10 ML ONE (23:55)
[2022-12-31 08:36] VITALS: BP 138/100; TEMP 98.4; O2SAT 97
== END 2022-12-31 00:31 | disposition home or self-care (01) ==
LOC: ER 19:08
PROC: 0HQGXZZ Repair Left Hand Skin, External Approach (ICD-10-PCS; principal; 2022-12-31)
DX: S62.522B Displaced fracture of distal phalanx of left thumb, initial encounter for open fracture (principal)
CPT/HCPCS: 73130; 12001; J2001; J0690; 96372; 99284

== ENCOUNTER → 2023-12-02 | Emergency (ER) | payer MEDICARE ==
--- OUTSIDE RECORDS SUMMARY | 2023-12-02 14:54 | XMS REPORT | Continuity of Care Document ---
Author Name Unknown Address [address] [place] [address] [facility] Address [address] [place] [id number] Care Team Providers Care Personal Development Mentor Name Role Phone Champion_P Attending Clinician Unavailable GC_[facility]_WalkInSchedul Attending Clinician Unavail able GC_CPC_Camacho_C Attending Clinician Unavailable GC_[facility]PCN_Walk-In Attending Clinician Unavailable Abhilash Boucher Attending Clinician Champion_P Admitting Clinician Unavailable GC_[facility]_WalkInSchedul Admitting Clinician Unavail able GC_CPC_Camacho_C Admitting Clinician Unavailable GC_[facility]PCN_Walk-In Admitting Clinician Unavailable Payers Payer Name Policy Type Policy Number Effective Date Expirati on Date Source [facility] - PHYSICIAN HEALTH CHOICE (MEDICARE REPLACEMENT HMO) [id number] [facility] - MEDICA (MEDICARE REPLACEMENT HMO) [id number] 2022 00:00[facility]00 [facility] [facility] - HMO[facility] [id number] Problems Condition Name Condition Details Condition Category Status Onset Date Resolution Date Last Treatment Date Treating Clinician Comments Source Prostate specific antigen above reference range Prostate Specific Antigen above Reference Range Problem Active 8-17 00:00: 00 [facility] Lower urinary tract symptoms due to benign prostatic hypertroph y Lower Urinary Tract Symptoms Due to Benign Prostatic Hypertroph y Problem Active 04-09 00:00: 00 [facility] Hu hematuria Hu Hematuria Problem Active 04-09 00:00: 00 [facility] Dysuria Dysuria Problem Active 04-09 00:00: 00 [facility] Retention of urine Retention of Urine Problem Active 04-09 00:00: 00 [facility] Osteoporos is Osteoporos is Problem Active 2021-10 00:00: 00 [facility] Benign prostatic hyperplasi a without outflow obstructio n Benign Prostatic Hyperplasi a without Outflow Obstructio n Problem Active 2021-10 00:00: 00 [facility] 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 Ordering Clinician Indication Dosage Frequency Signature (SIG) Comments Components Source ceftriaxone 1 gram solution for injectionTa ke 1 g by injection route. ceftriaxone 1 gram solution for injectionTa ke 1 g by injection route. 2022-10 08:16: 31 No ceftriaxon e 1 gram solution for injectionT brandno 1 g by injection route. [facility] ceftriaxone 1 gram solution for injectionTa ke 1 g by injection route. ceftriaxone 1 gram solution for injectionTa ke 1 g by injection route. 2022-10 08:16: 31 No ceftriaxon e 1 gram solution for injectionT brandon 1 g by injection route. [facility] rosuvastati n 40 mg tablet 40 mg by oral route. rosuvastati n 40 mg tablet 40 mg by oral route. 05-03 00:00: 00 No 40MG rosuvastat in 40 mg tablet 40 mg by oral route. [facility] rosuvastati n 40 mg tablet 40 mg by oral route. rosuvastati n 40 mg tablet 40 mg by oral route. 05-03 00:00: 00 No 40MG rosuvastat in 40 mg tablet 40 mg by oral route. [facility] rosuvastati n 40 mg tablet 40 mg by oral route. rosuvastati n 40 mg tablet 40 mg by oral route. 05-03 00:00: 00 No 40MG rosuvastat in 40 mg tablet 40 mg by oral route. [facility] rosuvastati n 40 mg tablet 40 mg by oral route. rosuvastati n 40 mg tablet 40 mg by oral route. 05-03 00:00: 00 No 40MG rosuvastat in 40 mg tablet 40 mg by oral route. [facility] rosuvastati n 40 mg tablet 40 mg by oral route. rosuvastati n 40 mg tablet 40 mg by oral route. 05-03 00:00: 00 No 40MG rosuvastat in 40 mg tablet 40 mg by oral route. [facility] rosuvastati n 40 mg tablet 40 mg by oral route. rosuvastati n 40 mg tablet 40 mg by oral route. 05-03 00:00: 00 No 40MG rosuvastat in 40 mg tablet 40 mg by oral route. [facility] rosuvastati n 40 mg tablet 40 mg by oral route. rosuvastati n 40 mg tablet 40 mg by oral route. 05-03 00:00: 00 No 40MG rosuvastat in 40 mg tablet 40 mg by oral route. [facility] ondansetron 4 mg disintegrat ing tablet Place 1 tablet every 4-6 hours by translingua l route as needed. ondansetron 4 mg disintegrat ing tablet Place 1 tablet every 4-6 hours by translingua l route as needed. No 1 Q5H ondansetro n 4 mg disintegra ting tablet Place 1 tablet every 4-6 hours by translingu al route as needed. [facility] rosuvastati n 40 mg tablet Take 1 tablet every day by oral route at dinner. rosuvastati n 40 mg tablet Take 1 tablet every day by oral route at dinner. No 1 Q1D rosuvastat in 40 mg tablet Take 1 tablet every day by oral route at dinner. [facility] tamsulosin 0.4 mg capsule Take 1 capsule twice a day by oral route. tamsulosin 0.4 mg capsule Take 1 capsule twice a day by oral route. No 1capsul e(s) BID tamsulosin 0.4 mg capsule Take 1 capsule twice a day by oral route. [facility] alendronate 70 mg tablet Take 1 tablet every week by oral route. alendronate 70 mg tablet Take 1 tablet every week by oral route. No 1 Q1W alendronat e 70 mg tablet Take 1 tablet every week by oral route. [facility] lisinopril 10 mg tablet Take 1 tablet every day by oral route. lisinopril 10 mg tablet Take 1 tablet every day by oral route. No 1 Q1D lisinopril 10 mg tablet Take 1 tablet every day by oral route. [facility] loratadine 10 mg tablet Take 1 tablet every day by oral route. loratadine 10 mg tablet Take 1 tablet every day by oral route. No 1 Q1D loratadine 10 mg tablet Take 1 tablet every day by oral route. [facility] rosuvastati n 40 mg tablet Take 1 tablet every day by oral route at dinner. rosuvastati n 40 mg tablet Take 1 tablet every day by oral route at dinner. No 1 Q1D rosuvastat in 40 mg tablet Take 1 tablet every day by oral route at dinner. [facility] tamsulosin 0.4 mg capsule Take 1 capsule twice a day by oral route. tamsulosin 0.4 mg capsule Take 1 capsule twice a day by oral route. No 1capsul e(s) BID tamsulosin 0.4 mg capsule Take 1 capsule twice a day by oral route. [facility] alendronate 70 mg tablet Take 1 tablet every week by oral route. alendronate 70 mg tablet Take 1 tablet every week by oral route. No 1 Q1W alendronat e 70 mg tablet Take 1 tablet every week by oral route. [facility] benzonatate 200 mg capsule Take 1 capsule 3 times a day by oral route as needed. benzonatate 200 mg capsule Take 1 capsule 3 times a day by oral route as needed. No 1capsul e(s) TID benzonatat e 200 mg capsule Take 1 capsule 3 times a day by oral route as needed. [facility] lisinopril 10 mg tablet Take 1 tablet every day by oral route. lisinopril 10 mg tablet Take 1 tablet every day by oral route. No 1 Q1D lisinopril 10 mg tablet Take 1 tablet every day by oral route. [facility] loratadine 10 mg tablet Take 1 tablet every day by oral route. loratadine 10 mg tablet Take 1 tablet every day by oral route. No 1 Q1D loratadine 10 mg tablet Take 1 tablet every day by oral route. [facility] rosuvastati n 40 mg tablet Take 1 tablet every day by oral route at dinner. rosuvastati n 40 mg tablet Take 1 tablet every day by oral route at dinner. No 1 Q1D rosuvastat in 40 mg tablet Take 1 tablet every day by oral route at dinner. [facility] tamsulosin 0.4 mg capsule Take 1 capsule twice a day by oral route. tamsulosin 0.4 mg capsule Take 1 capsule twice a day by oral route. No 1capsul e(s) BID tamsulosin 0.4 mg capsule Take 1 capsule twice a day by oral route. [facility] alendronate 70 mg tablet Take 1 tablet every week by oral route. alendronate 70 mg tablet Take 1 tablet every week by oral route. No 1 Q1W alendronat e 70 mg tablet Take 1 tablet every week by oral route. [facility] benzonatate 200 mg capsule Take 1 capsule 3 times a day by oral route as needed. benzonatate 200 mg capsule Take 1 capsule 3 times a day by oral route as needed. No 1capsul e(s) TID benzonatat e 200 mg capsule Take 1 capsule 3 times a day by oral route as needed. [facility] lisinopril 10 mg tablet Take 1 tablet every day by oral route. lisinopril 10 mg tablet Take 1 tablet every day by oral route. No 1 Q1D lisinopril 10 mg tablet Take 1 tablet every day by oral route. [facility] loratadine 10 mg tablet Take 1 tablet every day by oral route. loratadine 10 mg tablet Take 1 tablet every day by oral route. No 1 Q1D loratadine 10 mg tablet Take 1 tablet every day by oral route. [facility] promethazin e-DM 6.25 mg-15 mg/5 mL oral syrup Take 5 mL every 4-6 hours by oral route. promethazin e-DM 6.25 mg-15 mg/5 mL oral syrup Take 5 mL every 4-6 hours by oral route. No 5mL Q5H promethazi ne-DM 6.25 mg-15 mg/5 mL oral syrup Take 5 mL every 4-6 hours by oral route. [facility] rosuvastati n 40 mg tablet Take 1 tablet every day by oral route at dinner. rosuvastati n 40 mg tablet Take 1 tablet every day by oral route at dinner. No 1 Q1D rosuvastat in 40 mg tablet Take 1 tablet every day by oral route at dinner. [facility] tamsulosin 0.4 mg capsule Take 1 capsule twice a day by oral route. tamsulosin 0.4 mg capsule Take 1 capsule twice a day by oral route. No 1capsul e(s) BID tamsulosin 0.4 mg capsule Take 1 capsule twice a day by oral route. [facility] alendronate 70 mg tablet Take 1 tablet every week by oral route. alendronate 70 mg tablet Take 1 tablet every week by oral route. No 1 Q1W alendronat e 70 mg tablet Take 1 tablet every week by oral route. [facility] benzonatate 200 mg capsule Take 1 capsule 3 times a day by oral route as needed. benzonatate 200 mg capsule Take 1 capsule 3 times a day by oral route as needed. No 1capsul e(s) TID benzonatat e 200 mg capsule Take 1 capsule 3 times a day by oral route as needed. [facility] lisinopril 10 mg tablet Take 1 tablet every day by oral route. lisinopril 10 mg tablet Take 1 tablet every day by oral route. No 1 Q1D lisinopril 10 mg tablet Take 1 tablet every day by oral route. [facility] loratadine 10 mg tablet Take 1 tablet every day by oral route. loratadine 10 mg tablet Take 1 tablet every day by oral route. No 1 Q1D loratadine 10 mg tablet Take 1 tablet every day by oral route. [facility] rosuvastati n 40 mg tablet Take 1 tablet every day by oral route at dinner. rosuvastati n 40 mg tablet Take 1 tablet every day by oral route at dinner. No 1 Q1D rosuvastat in 40 mg tablet Take 1 tablet every day by oral route at dinner. [facility] tamsulosin 0.4 mg capsule Take 1 capsule twice a day by oral route. tamsulosin 0.4 mg capsule Take 1 capsule twice a day by oral route. No 1capsul e(s) BID tamsulosin 0.4 mg capsule Take 1 capsule twice a day by oral route. [facility] Trelegy Ellipta 100 mcg-62.5 mcg-25 mcg powder for inhalation Inhale 1 puff every day by inhalation route. Trelegy Ellipta 100 mcg-62.5 mcg-25 mcg powder for inhalation Inhale 1 puff every day by inhalation route. No 1puff(s ) Q1D Trelegy Ellipta 100 mcg-62.5 mcg-25 mcg powder for inhalation Inhale 1 puff every day by inhalation route. [facility] alendronate 70 mg tablet Take 1 tablet every week by oral route. alendronate 70 mg tablet Take 1 tablet every week by oral route. No 1 Q1W alendronat e 70 mg tablet Take 1 tablet every week by oral route. [facility] benzonatate 200 mg capsule Take 1 capsule 3 times a day by oral route as needed. benzonatate 200 mg capsule Take 1 capsule 3 times a day by oral route as needed. No 1capsul e(s) TID benzonatat e 200 mg capsule Take 1 capsule 3 times a day by oral route as needed. [facility] lisinopril 10 mg tablet Take 1 tablet every day by oral route. lisinopril 10 mg tablet Take 1 tablet every day by oral route. No 1 Q1D lisinopril 10 mg tablet Take 1 tablet every day by oral route. [facility] loratadine 10 mg tablet Take 1 tablet every day by oral route. loratadine 10 mg tablet Take 1 tablet every day by oral route. No 1 Q1D loratadine 10 mg tablet Take 1 tablet every day by oral route. [facility] rosuvastati n 40 mg tablet Take 1 tablet every day by oral route at dinner. rosuvastati n 40 mg tablet Take 1 tablet every day by oral route at dinner. No 1 Q1D rosuvastat in 40 mg tablet Take 1 tablet every day by oral route at dinner. [facility] tamsulosin 0.4 mg capsule Take 1 capsule twice a day by oral route. tamsulosin 0.4 mg capsule Take 1 capsule twice a day by oral route. No 1capsul e(s) BID tamsulosin 0.4 mg capsule Take 1 capsule twice a day by oral route. [facility] Trelegy Ellipta 100 mcg-62.5 mcg-25 mcg powder for inhalation Inhale 1 puff every day by inhalation route. Trelegy Ellipta 100 mcg-62.5 mcg-25 mcg powder for inhalation Inhale 1 puff every day by inhalation route. No 1puff(s ) Q1D Trelegy Ellipta 100 mcg-62.5 mcg-25 mcg powder for inhalation Inhale 1 puff every day by inhalation route. [facility] alendronate 70 mg tablet Take 1 tablet every week by oral route. alendronate 70 mg tablet Take 1 tablet every week by oral route. No 1 Q1W alendronat e 70 mg tablet Take 1 tablet every week by oral route. [facility] benzonatate 200 mg capsule Take 1 capsule 3 times a day by oral route as needed. benzonatate 200 mg capsule Take 1 capsule 3 times a day by oral route as needed. No 1capsul e(s) TID benzonatat e 200 mg capsule Take 1 capsule 3 times a day by oral route as needed. [facility] cephalexin 500 mg capsule Take 1 capsule twice a day by oral route for 7 days. cephalexin 500 mg capsule Take 1 capsule twice a day by oral route for 7 days. No 1capsul e(s) BID cephalexin 500 mg capsule Take 1 capsule twice a day by oral route for 7 days. [facility] lisinopril 10 mg tablet Take 1 tablet every day by oral route. lisinopril 10 mg tablet Take 1 tablet every day by oral route. No 1 Q1D lisinopril 10 mg tablet Take 1 tablet every day by oral route. [facility] loratadine 10 mg tablet Take 1 tablet every day by oral route. loratadine 10 mg tablet Take 1 tablet every day by oral route. No 1 Q1D loratadine 10 mg tablet Take 1 tablet every day by oral route. [facility] rosuvastati n 40 mg tablet Take 1 tablet every day by oral route at dinner. rosuvastati n 40 mg tablet Take 1 tablet every day by oral route at dinner. No 1 Q1D rosuvastat in 40 mg tablet Take 1 tablet every day by oral route at dinner. [facility] tamsulosin 0.4 mg capsule Take 1 capsule twice a day by oral route. tamsulosin 0.4 mg capsule Take 1 capsule twice a day by oral route. No 1capsul e(s) BID tamsulosin 0.4 mg capsule Take 1 capsule twice a day by oral route. [facility] Trelegy Ellipta 100 mcg-62.5 mcg-25 mcg powder for inhalation Inhale 1 puff every day by inhalation route. Trelegy Ellipta 100 mcg-62.5 mcg-25 mcg powder for inhalation Inhale 1 puff every day by inhalation route. No 1puff(s ) Q1D Trelegy Ellipta 100 mcg-62.5 mcg-25 mcg powder for inhalation Inhale 1 puff every day by inhalation route. [facility] alendronate 70 mg tablet Take 1 tablet every week by oral route. alendronate 70 mg tablet Take 1 tablet every week by oral route. No 1 Q1W alendronat e 70 mg tablet Take 1 tablet every week by oral route. [facility] celecoxib 200 mg capsule Take 1 capsule every day by oral route as needed. celecoxib 200 mg capsule Take 1 capsule every day by oral route as needed. No 1capsul e(s) Q1D celecoxib 200 mg capsule Take 1 capsule every day by oral route as needed. [facility] Cipro 250 mg tablet Take 1 tablet every 12 hours by oral route. Cipro 250 mg tablet Take 1 tablet every 12 hours by oral route. No 1 Q12H Cipro 250 mg tablet Take 1 tablet every 12 hours by oral route. [facility] loratadine 10 mg tablet Take 1 tablet every day by oral route. loratadine 10 mg tablet Take 1 tablet every day by oral route. No 1 Q1D loratadine 10 mg tablet Take 1 tablet every day by oral route. [facility] rosuvastati n 40 mg tablet Take 1 tablet every day by oral route at dinner. rosuvastati n 40 mg tablet Take 1 tablet every day by oral route at dinner. No 1 Q1D rosuvastat in 40 mg tablet Take 1 tablet every day by oral route at dinner. [facility] tamsulosin 0.4 mg capsule Take 1 capsule twice a day by oral route. tamsulosin 0.4 mg capsule Take 1 capsule twice a day by oral route. No 1capsul e(s) BID tamsulosin 0.4 mg capsule Take 1 capsule twice a day by oral route. [facility] alendronate 70 mg tablet Take 1 tablet every week by oral route. alendronate 70 mg tablet Take 1 tablet every week by oral route. No 1 Q1W alendronat e 70 mg tablet Take 1 tablet every week by oral route. [facility] benzonatate 200 mg capsule Take 1 capsule 3 times a day by oral route as needed. benzonatate 200 mg capsule Take 1 capsule 3 times a day by oral route as needed. No 1capsul e(s) TID benzonatat e 200 mg capsule Take 1 capsule 3 times a day by oral route as needed. [facility] celecoxib 200 mg capsule Take 1 capsule every day by oral route as needed. celecoxib 200 mg capsule Take 1 capsule every day by oral route as needed. No 1capsul e(s) Q1D celecoxib 200 mg capsule Take 1 capsule every day by oral route as needed. [facility] rosuvastati n 40 mg tablet Take 1 tablet every day by oral route at dinner. rosuvastati n 40 mg tablet Take 1 tablet every day by oral route at dinner. No 1 Q1D rosuvastat in 40 mg tablet Take 1 tablet every day by oral route at dinner. [facility] tamsulosin 0.4 mg capsule Take 1 capsule twice a day by oral route. tamsulosin 0.4 mg capsule Take 1 capsule twice a day by oral route. No 1capsul e(s) BID tamsulosin 0.4 mg capsule Take 1 capsule twice a day by oral route. [facility] alendronate 70 mg tablet Take 1 tablet every week by oral route. alendronate 70 mg tablet Take 1 tablet every week by oral route. No 1 Q1W alendronat e 70 mg tablet Take 1 tablet every week by oral route. [facility] celecoxib 200 mg capsule Take 1 capsule every day by oral route as needed. celecoxib 200 mg capsule Take 1 capsule every day by oral route as needed. No 1capsul e(s) Q1D celecoxib 200 mg capsule Take 1 capsule every day by oral route as needed. [facility] loratadine 10 mg tablet Take 1 tablet every day by oral route. loratadine 10 mg tablet Take 1 tablet every day by oral route. No 1 Q1D loratadine 10 mg tablet Take 1 tablet every day by oral route. [facility] rosuvastati n 40 mg tablet Take 1 tablet every day by oral route at dinner. rosuvastati n 40 mg tablet Take 1 tablet every day by oral route at dinner. No 1 Q1D rosuvastat in 40 mg tablet Take 1 tablet every day by oral route at dinner. [facility] tamsulosin 0.4 mg capsule Take 1 capsule twice a day by oral route. tamsulosin 0.4 mg capsule Take 1 capsule twice a day by oral route. No 1capsul e(s) BID tamsulosin 0.4 mg capsule Take 1 capsule twice a day by oral route. [facility] alendronate 70 mg tablet Take 1 tablet every week by oral route. alendronate 70 mg tablet Take 1 tablet every week by oral route. No 1 Q1W alendronat e 70 mg tablet Take 1 tablet every week by oral route. [facility] celecoxib 200 mg capsule Take 1 capsule every day by oral route as needed. celecoxib 200 mg capsule Take 1 capsule every day by oral route as needed. No 1capsul e(s) Q1D celecoxib 200 mg capsule Take 1 capsule every day by oral route as needed. [facility] Cipro 250 mg tablet Take 1 tablet every 12 hours by oral route. Cipro 250 mg tablet Take 1 tablet every 12 hours by oral route. No 1 Q12H Cipro 250 mg tablet Take 1 tablet every 12 hours by oral route. [facility] dicyclomine 20 mg tablet Take 1 tablet 3 times a day by oral route as needed. dicyclomine 20 mg tablet Take 1 tablet 3 times a day by oral route as needed. No 1 TID dicyclomin e 20 mg tablet Take 1 tablet 3 times a day by oral route as needed. [facility] loratadine 10 mg tablet Take 1 tablet every day by oral route. loratadine 10 mg tablet Take 1 tablet every day by oral route. No 1 Q1D loratadine 10 mg tablet Take 1 tablet every day by oral route. [facility] Bactrim DS 800 mg-160 mg tablet Take 1 tablet every 12 hours by oral route. Bactrim DS 800 mg-160 mg tablet Take 1 tablet every 12 hours by oral route. No 1 Q12H Bactrim DS 800 mg-160 mg tablet Take 1 tablet every 12 hours by oral route. [facility] benzonatate 200 mg capsule 1 capsule 3 times a day by oral route. benzonatate 200 mg capsule 1 capsule 3 times a day by oral route. No 1capsul e(s) TID benzonatat e 200 mg capsule 1 capsule 3 times a day by oral route. [facility] clotrimazol e-betametha sone 1 %-0.05 % topical cream APPLY TO AFFECTED AREA TWICE A DAY IN THE MORNING AND IN THE EVENING clotrimazol e-betametha sone 1 %-0.05 % topical cream APPLY TO AFFECTED AREA TWICE A DAY IN THE MORNING AND IN THE EVENING No clotrimazo le-betamet hasone 1 %-0.05 % topical cream APPLY TO AFFECTED AREA TWICE A DAY IN THE MORNING AND IN THE EVENING [facility] lisinopril 10 mg tablet every 24 hours by oral route. lisinopril 10 mg tablet every 24 hours by oral route. No Q24H lisinopril 10 mg tablet every 24 hours by oral route. [facility] loratadine 10 mg tablet every 24 hours by oral route. loratadine 10 mg tablet every 24 hours by oral route. No Q24H loratadine 10 mg tablet every 24 hours by oral route. [facility] Trelegy Ellipta 100 mcg-62.5 mcg-25 mcg powder for inhalation Inhale 1 puff every day by inhalation route. Trelegy Ellipta 100 mcg-62.5 mcg-25 mcg powder for inhalation Inhale 1 puff every day by inhalation route. No 1puff(s ) Q1D Trelegy Ellipta 100 mcg-62.5 mcg-25 mcg powder for inhalation Inhale 1 puff every day by inhalation route. [facility] Bactrim DS 800 mg-160 mg tablet Take 1 tablet every 12 hours by oral route. Bactrim DS 800 mg-160 mg tablet Take 1 tablet every 12 hours by oral route. No 1 Q12H Bactrim DS 800 mg-160 mg tablet Take 1 tablet every 12 hours by oral route. [facility] benzonatate 200 mg capsule 1 capsule 3 times a day by oral route. benzonatate 200 mg capsule 1 capsule 3 times a day by oral route. No 1capsul e(s) TID benzonatat e 200 mg capsule 1 capsule 3 times a day by oral route. [facility] clotrimazol e-betametha sone 1 %-0.05 % topical cream APPLY TO AFFECTED AREA TWICE A DAY IN THE MORNING AND IN THE EVENING clotrimazol e-betametha sone 1 %-0.05 % topical cream APPLY TO AFFECTED AREA TWICE A DAY IN THE MORNING AND IN THE EVENING No clotrimazo le-betamet hasone 1 %-0.05 % topical cream APPLY TO AFFECTED AREA TWICE A DAY IN THE MORNING AND IN THE EVENING [facility] lisinopril 10 mg tablet every 24 hours by oral route. lisinopril 10 mg tablet every 24 hours by oral route. No Q24H lisinopril 10 mg tablet every 24 hours by oral route. [facility] loratadine 10 mg tablet every 24 hours by oral route. loratadine 10 mg tablet every 24 hours by oral route. No Q24H loratadine 10 mg tablet every 24 hours by oral route. [facility] Trelegy Ellipta 100 mcg-62.5 mcg-25 mcg powder for inhalation Inhale 1 puff every day by inhalation route. Trelegy Ellipta 100 mcg-62.5 mcg-25 mcg powder for inhalation Inhale 1 puff every day by inhalation route. No 1puff(s ) Q1D Trelegy Ellipta 100 mcg-62.5 mcg-25 mcg powder for inhalation Inhale 1 puff every day by inhalation route. [facility] benzonatate 200 mg capsule 1 capsule 3 times a day by oral route. benzonatate 200 mg capsule 1 capsule 3 times a day by oral route. No 1capsul e(s) TID benzonatat e 200 mg capsule 1 capsule 3 times a day by oral route. [facility] benzonatate 200 mg capsule 1 capsule 3 times a day by oral route. benzonatate 200 mg capsule 1 capsule 3 times a day by oral route. No 1capsul e(s) TID benzonatat e 200 mg capsule 1 capsule 3 times a day by oral route. [facility] clotrimazol e-betametha sone 1 %-0.05 % topical cream APPLY TO AFFECTED AREA TWICE A DAY IN THE MORNING AND IN THE EVENING clotrimazol e-betametha sone 1 %-0.05 % topical cream APPLY TO AFFECTED AREA TWICE A DAY IN THE MORNING AND IN THE EVENING No clotrimazo le-betamet hasone 1 %-0.05 % topical cream APPLY TO AFFECTED AREA TWICE A DAY IN THE MORNING AND IN THE EVENING [facility] lisinopril 10 mg tablet every 24 hours by oral route. lisinopril 10 mg tablet every 24 hours by oral route. No Q24H lisinopril 10 mg tablet every 24 hours by oral route. [facility] loratadine 10 mg tablet every 24 hours by oral route. loratadine 10 mg tablet every 24 hours by oral route. No Q24H loratadine 10 mg tablet every 24 hours by oral route. [facility] Trelegy Ellipta 100 mcg-62.5 mcg-25 mcg powder for inhalation Inhale 1 puff every day by inhalation route. Trelegy Ellipta 100 mcg-62.5 mcg-25 mcg powder for inhalation Inhale 1 puff every day by inhalation route. No 1puff(s ) Q1D Trelegy Ellipta 100 mcg-62.5 mcg-25 mcg powder for inhalation Inhale 1 puff every day by inhalation route. [facility] lisinopril 10 mg tablet every 24 hours by oral route. lisinopril 10 mg tablet every 24 hours by oral route. No Q24H lisinopril 10 mg tablet every 24 hours by oral route. [facility] loratadine 10 mg tablet every 24 hours by oral route. loratadine 10 mg tablet every 24 hours by oral route. No Q24H loratadine 10 mg tablet every 24 hours by oral route. [facility] benzonatate 200 mg capsule 1 capsule 3 times a day by oral route. benzonatate 200 mg capsule 1 capsule 3 times a day by oral route. No 1capsul e(s) TID benzonatat e 200 mg capsule 1 capsule 3 times a day by oral route. [facility] clotrimazol e-betametha sone 1 %-0.05 % topical cream APPLY TO AFFECTED AREA TWICE A DAY IN THE MORNING AND IN THE EVENING clotrimazol e-betametha sone 1 %-0.05 % topical cream APPLY TO AFFECTED AREA TWICE A DAY IN THE MORNING AND IN THE EVENING No clotrimazo le-betamet hasone 1 %-0.05 % topical cream APPLY TO AFFECTED AREA TWICE A DAY IN THE MORNING AND IN THE EVENING [facility] lisinopril 10 mg tablet every 24 hours by oral route. lisinopril 10 mg tablet every 24 hours by oral route. No Q24H lisinopril 10 mg tablet every 24 hours by oral route. [facility] Trelegy Ellipta 100 mcg-62.5 mcg-25 mcg powder for inhalation Inhale 1 puff every day by inhalation route. Trelegy Ellipta 100 mcg-62.5 mcg-25 mcg powder for inhalation Inhale 1 puff every day by inhalation route. No 1puff(s ) Q1D Trelegy Ellipta 100 mcg-62.5 mcg-25 mcg powder for inhalation Inhale 1 puff every day by inhalation route. [facility] loratadine 10 mg tablet every 24 hours by oral route. loratadine 10 mg tablet every 24 hours by oral route. No Q24H loratadine 10 mg tablet every 24 hours by oral route. [facility] Trelegy Ellipta 100 mcg-62.5 mcg-25 mcg powder for inhalation Inhale 1 puff every day by inhalation route. Trelegy Ellipta 100 mcg-62.5 mcg-25 mcg powder for inhalation Inhale 1 puff every day by inhalation route. No 1puff(s ) Q1D Trelegy Ellipta 100 mcg-62.5 mcg-25 mcg powder for inhalation Inhale 1 puff every day by inhalation route. [facility] alendronate 70 mg tablet TAKE 1 TABLET BY MOUTH EVERY WEEK alendronate 70 mg tablet TAKE 1 TABLET BY MOUTH EVERY WEEK No alendronat e 70 mg tablet TAKE 1 TABLET BY MOUTH EVERY WEEK [facility] lisinopril 10 mg tablet TAKE 1 TABLET BY MOUTH EVERY DAY lisinopril 10 mg tablet TAKE 1 TABLET BY MOUTH EVERY DAY No lisinopril 10 mg tablet TAKE 1 TABLET BY MOUTH EVERY DAY [facility] loratadine 10 mg tablet every 24 hours by oral route. loratadine 10 mg tablet every 24 hours by oral route. No Q24H loratadine 10 mg tablet every 24 hours by oral route. [facility] rosuvastati n 40 mg tablet TAKE 1 TABLET BY MOUTH EVERY DAY AT DINNER rosuvastati n 40 mg tablet TAKE 1 TABLET BY MOUTH EVERY DAY AT DINNER No rosuvastat in 40 mg tablet TAKE 1 TABLET BY MOUTH EVERY DAY AT DINNER [facility] Trelegy Ellipta 100 mcg-62.5 mcg-25 mcg powder for inhalation Inhale 1 puff every day by inhalation route. Trelegy Ellipta 100 mcg-62.5 mcg-25 mcg powder for inhalation Inhale 1 puff every day by inhalation route. No 1puff(s ) Q1D Trelegy Ellipta 100 mcg-62.5 mcg-25 mcg powder for inhalation Inhale 1 puff every day by inhalation route. [facility] alendronate 70 mg tablet TAKE 1 TABLET BY MOUTH EVERY WEEK alendronate 70 mg tablet TAKE 1 TABLET BY MOUTH EVERY WEEK No alendronat e 70 mg tablet TAKE 1 TABLET BY MOUTH EVERY WEEK [facility] benzonatate 200 mg capsule TAKE 1 CAPSULE BY MOUTH THREE TIMES A DAY NEEDED benzonatate 200 mg capsule TAKE 1 CAPSULE BY MOUTH THREE TIMES A DAY NEEDED No benzonatat e 200 mg capsule TAKE 1 CAPSULE BY MOUTH THREE TIMES A DAY NEEDED [facility] ceftriaxone 1 gram solution for injection Take 1 g by injection route. ceftriaxone 1 gram solution for injection Take 1 g by injection route. No 1g ceftriaxon e 1 gram solution for injection Take 1 g by injection route. [facility] cephalexin 500 mg capsule TAKE 1 CAPSULE BY MOUTH EVERY 8 HOURS, AND BEGIN ONE HOUR BEFORE PROSTATE BIOPSY. cephalexin 500 mg capsule TAKE 1 CAPSULE BY MOUTH EVERY 8 HOURS, AND BEGIN ONE HOUR BEFORE PROSTATE BIOPSY. No cephalexin 500 mg capsule TAKE 1 CAPSULE BY MOUTH EVERY 8 HOURS, AND BEGIN ONE HOUR BEFORE PROSTATE BIOPSY. [facility] dexamethaso ne 4 mg tablet TAKE 2 TABLETS BY MOUTH ON DAY ONE. THEN TAKE 1 TABLET BY MOUTH DAILY dexamethaso ne 4 mg tablet TAKE 2 TABLETS BY MOUTH ON DAY ONE. THEN TAKE 1 TABLET BY MOUTH DAILY No dexamethas one 4 mg tablet TAKE 2 TABLETS BY MOUTH ON DAY ONE. THEN TAKE 1 TABLET BY MOUTH DAILY [facility] levofloxaci n 500 mg tablet TAKE 1 TABLET BY MOUTH EVERY 24 HOURS, AND BEGIN ONE HOUR BEFORE PROSTATE BIOPSY. levofloxaci n 500 mg tablet TAKE 1 TABLET BY MOUTH EVERY 24 HOURS, AND BEGIN ONE HOUR BEFORE PROSTATE BIOPSY. No levofloxac in 500 mg tablet TAKE 1 TABLET BY MOUTH EVERY 24 HOURS, AND BEGIN ONE HOUR BEFORE PROSTATE BIOPSY. [facility] lisinopril 10 mg tablet TAKE 1 TABLET BY MOUTH EVERY DAY lisinopril 10 mg tablet TAKE 1 TABLET BY MOUTH EVERY DAY No lisinopril 10 mg tablet TAKE 1 TABLET BY MOUTH EVERY DAY [facility] loratadine 10 mg tablet TAKE 1 TABLET BY MOUTH EVERY DAY loratadine 10 mg tablet TAKE 1 TABLET BY MOUTH EVERY DAY No loratadine 10 mg tablet TAKE 1 TABLET BY MOUTH EVERY DAY [facility] omeprazole 40 mg capsule,del ayed release TAKE 1 CAPSULE BY MOUTH EVERY DAY IN THE MORNING omeprazole 40 mg capsule,del ayed release TAKE 1 CAPSULE BY MOUTH EVERY DAY IN THE MORNING No omeprazole 40 mg capsule,de layed release TAKE 1 CAPSULE BY MOUTH EVERY DAY IN THE MORNING [facility] ondansetron 8 mg disintegrat ing tablet LET 1 TABLET DISSOLVE ON TOP OF THE TONGUE TWICE A DAY NEEDED ondansetron 8 mg disintegrat ing tablet LET 1 TABLET DISSOLVE ON TOP OF THE TONGUE TWICE A DAY NEEDED No ondansetro n 8 mg disintegra ting tablet LET 1 TABLET DISSOLVE ON TOP OF THE TONGUE TWICE A DAY NEEDED [facility] promethazin e-DM 6.25 mg-15 mg/5 mL oral syrup TAKE 5 ML BY MOUTH EVERY 4 TO 6 HOURS promethazin e-DM 6.25 mg-15 mg/5 mL oral syrup TAKE 5 ML BY MOUTH EVERY 4 TO 6 HOURS No promethazi ne-DM 6.25 mg-15 mg/5 mL oral syrup TAKE 5 ML BY MOUTH EVERY 4 TO 6 HOURS [facility] rosuvastati n 40 mg tablet TAKE 1 TABLET BY MOUTH EVERY DAY AT DINNER rosuvastati n 40 mg tablet TAKE 1 TABLET BY MOUTH EVERY DAY AT DINNER No rosuvastat in 40 mg tablet TAKE 1 TABLET BY MOUTH EVERY DAY AT DINNER [facility] Trelegy Ellipta 100 mcg-62.5 mcg-25 mcg powder for inhalation Inhale 1 puff every day by inhalation route. Trelegy Ellipta 100 mcg-62.5 mcg-25 mcg powder for inhalation Inhale 1 puff every day by inhalation route. No 1puff(s ) Q1D Trelegy Ellipta 100 mcg-62.5 mcg-25 mcg powder for inhalation Inhale 1 puff every day by inhalation route. [facility] alendronate 70 mg tablet TAKE 1 TABLET BY MOUTH EVERY WEEK alendronate 70 mg tablet TAKE 1 TABLET BY MOUTH EVERY WEEK No alendronat e 70 mg tablet TAKE 1 TABLET BY MOUTH EVERY WEEK [facility] benzonatate 200 mg capsule TAKE 1 CAPSULE BY MOUTH THREE TIMES A DAY NEEDED benzonatate 200 mg capsule TAKE 1 CAPSULE BY MOUTH THREE TIMES A DAY NEEDED No benzonatat e 200 mg capsule TAKE 1 CAPSULE BY MOUTH THREE TIMES A DAY NEEDED [facility] ceftriaxone 1 gram solution for injection Take 1 g by injection route. ceftriaxone 1 gram solution for injection Take 1 g by injection route. No 1g ceftriaxon e 1 gram solution for injection Take 1 g by injection route. [facility] cephalexin 500 mg capsule TAKE 1 CAPSULE BY MOUTH EVERY 8 HOURS, AND BEGIN ONE HOUR BEFORE PROSTATE BIOPSY. cephalexin 500 mg capsule TAKE 1 CAPSULE BY MOUTH EVERY 8 HOURS, AND BEGIN ONE HOUR BEFORE PROSTATE BIOPSY. No cephalexin 500 mg capsule TAKE 1 CAPSULE BY MOUTH EVERY 8 HOURS, AND BEGIN ONE HOUR BEFORE PROSTATE BIOPSY. [facility] dexamethaso ne 4 mg tablet TAKE 2 TABLETS BY MOUTH ON DAY ONE. THEN TAKE 1 TABLET BY MOUTH DAILY dexamethaso ne 4 mg tablet TAKE 2 TABLETS BY MOUTH ON DAY ONE. THEN TAKE 1 TABLET BY MOUTH DAILY No dexamethas one 4 mg tablet TAKE 2 TABLETS BY MOUTH ON DAY ONE. THEN TAKE 1 TABLET BY MOUTH DAILY [facility] levofloxaci n 500 mg tablet TAKE 1 TABLET BY MOUTH EVERY 24 HOURS, AND BEGIN ONE HOUR BEFORE PROSTATE BIOPSY. levofloxaci n 500 mg tablet TAKE 1 TABLET BY MOUTH EVERY 24 HOURS, AND BEGIN ONE HOUR BEFORE PROSTATE BIOPSY. No levofloxac in 500 mg tablet TAKE 1 TABLET BY MOUTH EVERY 24 HOURS, AND BEGIN ONE HOUR BEFORE PROSTATE BIOPSY. [facility] lisinopril 10 mg tablet TAKE 1 TABLET BY MOUTH EVERY DAY lisinopril 10 mg tablet TAKE 1 TABLET BY MOUTH EVERY DAY No lisinopril 10 mg tablet TAKE 1 TABLET BY MOUTH EVERY DAY [facility] loratadine 10 mg tablet TAKE 1 TABLET BY MOUTH EVERY DAY loratadine 10 mg tablet TAKE 1 TABLET BY MOUTH EVERY DAY No loratadine 10 mg tablet TAKE 1 TABLET BY MOUTH EVERY DAY [facility] omeprazole 40 mg capsule,del ayed release TAKE 1 CAPSULE BY MOUTH EVERY DAY IN THE MORNING omeprazole 40 mg capsule,del ayed release TAKE 1 CAPSULE BY MOUTH EVERY DAY IN THE MORNING No omeprazole 40 mg capsule,de layed release TAKE 1 CAPSULE BY MOUTH EVERY DAY IN THE MORNING [facility] ondansetron 8 mg disintegrat ing tablet LET 1 TABLET DISSOLVE ON TOP OF THE TONGUE TWICE A DAY NEEDED ondansetron 8 mg disintegrat ing tablet LET 1 TABLET DISSOLVE ON TOP OF THE TONGUE TWICE A DAY NEEDED No ondansetro n 8 mg disintegra ting tablet LET 1 TABLET DISSOLVE ON TOP OF THE TONGUE TWICE A DAY NEEDED [facility] promethazin e-DM 6.25 mg-15 mg/5 mL oral syrup TAKE 5 ML BY MOUTH EVERY 4 TO 6 HOURS promethazin e-DM 6.25 mg-15 mg/5 mL oral syrup TAKE 5 ML BY MOUTH EVERY 4 TO 6 HOURS No promethazi ne-DM 6.25 mg-15 mg/5 mL oral syrup TAKE 5 ML BY MOUTH EVERY 4 TO 6 HOURS [facility] rosuvastati n 40 mg tablet TAKE 1 TABLET BY MOUTH EVERY DAY AT DINNER rosuvastati n 40 mg tablet TAKE 1 TABLET BY MOUTH EVERY DAY AT DINNER No rosuvastat in 40 mg tablet TAKE 1 TABLET BY MOUTH EVERY DAY AT DINNER [facility] Trelegy Ellipta 100 mcg-62.5 mcg-25 mcg powder for inhalation Inhale 1 puff every day by inhalation route. Trelegy Ellipta 100 mcg-62.5 mcg-25 mcg powder for inhalation Inhale 1 puff every day by inhalation route. No 1puff(s ) Q1D Trelegy Ellipta 100 mcg-62.5 mcg-25 mcg powder for inhalation Inhale 1 puff every day by inhalation route. [facility] alendronate 70 mg tablet TAKE 1 TABLET BY MOUTH EVERY WEEK alendronate 70 mg tablet TAKE 1 TABLET BY MOUTH EVERY WEEK No alendronat e 70 mg tablet TAKE 1 TABLET BY MOUTH EVERY WEEK [facility] dexamethaso ne 4 mg tablet TAKE 2 TABLETS BY MOUTH ON DAY ONE. THEN TAKE 1 TABLET BY MOUTH DAILY dexamethaso ne 4 mg tablet TAKE 2 TABLETS BY MOUTH ON DAY ONE. THEN TAKE 1 TABLET BY MOUTH DAILY No dexamethas one 4 mg tablet TAKE 2 TABLETS BY MOUTH ON DAY ONE. THEN TAKE 1 TABLET BY MOUTH DAILY [facility] lisinopril 10 mg tablet TAKE 1 TABLET BY MOUTH EVERY DAY lisinopril 10 mg tablet TAKE 1 TABLET BY MOUTH EVERY DAY No lisinopril 10 mg tablet TAKE 1 TABLET BY MOUTH EVERY DAY [facility] loratadine 10 mg tablet TAKE 1 TABLET BY MOUTH EVERY DAY loratadine 10 mg tablet TAKE 1 TABLET BY MOUTH EVERY DAY No loratadine 10 mg tablet TAKE 1 TABLET BY MOUTH EVERY DAY [facility] omeprazole 40 mg capsule,del ayed release TAKE 1 CAPSULE BY MOUTH EVERY DAY IN THE MORNING omeprazole 40 mg capsule,del ayed release TAKE 1 CAPSULE BY MOUTH EVERY DAY IN THE MORNING No omeprazole 40 mg capsule,de layed release TAKE 1 CAPSULE BY MOUTH EVERY DAY IN THE MORNING [facility] ondansetron 8 mg disintegrat ing tablet LET 1 TABLET DISSOLVE ON TOP OF THE TONGUE TWICE A DAY NEEDED ondansetron 8 mg disintegrat ing tablet LET 1 TABLET DISSOLVE ON TOP OF THE TONGUE TWICE A DAY NEEDED No ondansetro n 8 mg disintegra ting tablet LET 1 TABLET DISSOLVE ON TOP OF THE TONGUE TWICE A DAY NEEDED [facility] rosuvastati n 40 mg tablet TAKE 1 TABLET BY MOUTH EVERY DAY AT DINNER rosuvastati n 40 mg tablet TAKE 1 TABLET BY MOUTH EVERY DAY AT DINNER No rosuvastat in 40 mg tablet TAKE 1 TABLET BY MOUTH EVERY DAY AT DINNER [facility] Trelegy Ellipta 100 mcg-62.5 mcg-25 mcg powder for inhalation Inhale 1 puff every day by inhalation route. Trelegy Ellipta 100 mcg-62.5 mcg-25 mcg powder for inhalation Inhale 1 puff every day by inhalation route. No 1puff(s ) Q1D Trelegy Ellipta 100 mcg-62.5 mcg-25 mcg powder for inhalation Inhale 1 puff every day by inhalation route. [facility] benzonatate 200 mg capsule 1 capsule 3 times a day by oral route. benzonatate 200 mg capsule 1 capsule 3 times a day by oral route. No 1capsul e(s) TID benzonatat e 200 mg capsule 1 capsule 3 times a day by oral route. [facility] lisinopril 10 mg tablet every 24 hours by oral route. lisinopril 10 mg tablet every 24 hours by oral route. No Q24H lisinopril 10 mg tablet every 24 hours by oral route. [facility] loratadine 10 mg tablet every 24 hours by oral route. loratadine 10 mg tablet every 24 hours by oral route. No Q24H loratadine 10 mg tablet every 24 hours by oral route. [facility] Trelegy Ellipta 100 mcg-62.5 mcg-25 mcg powder for inhalation Inhale 1 puff every day by inhalation route. Trelegy Ellipta 100 mcg-62.5 mcg-25 mcg powder for inhalation Inhale 1 puff every day by inhalation route. No 1puff(s ) Q1D Trelegy Ellipta 100 mcg-62.5 mcg-25 mcg powder for inhalation Inhale 1 puff every day by inhalation route. [facility] benzonatate 200 mg capsule 1 capsule 3 times a day by oral route. benzonatate 200 mg capsule 1 capsule 3 times a day by oral route. No 1capsul e(s) TID benzonatat e 200 mg capsule 1 capsule 3 times a day by oral route. [facility] lisinopril 10 mg tablet every 24 hours by oral route. lisinopril 10 mg tablet every 24 hours by oral route. No Q24H lisinopril 10 mg tablet every 24 hours by oral route. [facility] loratadine 10 mg tablet every 24 hours by oral route. loratadine 10 mg tablet every 24 hours by oral route. No Q24H loratadine 10 mg tablet every 24 hours by oral route. [facility] Trelegy Ellipta 100 mcg-62.5 mcg-25 mcg powder for inhalation Inhale 1 puff every day by inhalation route. Trelegy Ellipta 100 mcg-62.5 mcg-25 mcg powder for inhalation Inhale 1 puff every day by inhalation route. No 1puff(s ) Q1D Trelegy Ellipta 100 mcg-62.5 mcg-25 mcg powder for inhalation Inhale 1 puff every day by inhalation route. [facility] Immunizations Ordered Immunization Name Filled Immunization Name Date Status Comments Source pneumococcal, unspecified formulation pneumococcal, unspecified formulation 2022-12-11 00:00:00 Completed [facility] influenza, unspecified formulation influenza, unspecified formulation 2022-12-11 00:00:00 Completed [facility] pneumococcal, unspecified formulation pneumococcal, unspecified formulation 2022-12-11 00:00:00 Completed [facility] influenza, unspecified formulation influenza, unspecified formulation 2022-12-11 00:00:00 Completed [facility] pneumococcal, unspecified formulation pneumococcal, unspecified formulation 2022-12-11 00:00:00 Completed [facility] influenza, unspecified formulation influenza, unspecified formulation 2022-12-11 00:00:00 Completed [facility] pneumococcal, unspecified formulation pneumococcal, unspecified formulation 2022-12-11 00:00:00 Completed [facility] influenza, unspecified formulation influenza, unspecified formulation 2022-12-11 00:00:00 Completed [facility] pneumococcal, unspecified formulation pneumococcal, unspecified formulation 2022-12-11 00:00:00 Completed [facility] influenza, unspecified formulation influenza, unspecified formulation 2022-12-11 00:00:00 Completed [facility] pneumococcal, unspecified formulation pneumococcal, unspecified formulation 2022-12-11 00:00:00 Completed [facility] influenza, unspecified formulation influenza, unspecified formulation 2022-12-11 00:00:00 Completed [facility] Pneumococcal Conjugate, unspecified formulation Pneumococcal Conjugate, unspecified formulation 2018-10-13 00:00:00 Com[facility] Pneumococcal Conjugate, unspecified formulation Pneumococcal Conjugate, unspecified formulation 2018-10-13 00:00:00 Completed [facility] Pneumococcal Conjugate, unspecified formulation Pneumococcal Conjugate, unspecified formulation 2018-10-13 00:00:00 Completed [facility] Pneumococcal Conjugate, unspecified formulation Pneumococcal Conjugate, unspecified formulation 2018-10-13 00:00:00 Completed [facility] Pneumococcal Conjugate, unspecified formulation Pneumococcal Conjugate, unspecified formulation 2018-10-13 00:00:00 Completed [facility] Pneumococcal Conjugate, unspecified formulation Pneumococcal Conjugate, unspecified formulation 2018-10-13 00:00:00 Completed [facility] Pneumococcal Conjugate, unspecified formulation Pneumococcal Conjugate, unspecified formulation 2018-10-13 00:00:00 Completed [facility] Pneumococcal Conjugate, unspecified formulation Pneumococcal Conjugate, unspecified formulation 2018-10-13 00:00:00 Completed [facility] Pneumococcal Conjugate, unspecified formulation Pneumococcal Conjugate, unspecified formulation 2018-10-13 00:00:00 Completed [facility] Pneumococcal Conjugate, unspecified formulation Pneumococcal Conjugate, unspecified formulation 2018-10-13 00:00:00 Completed [facility] Pneumococcal Conjugate, unspecified formulation Pneumococcal Conjugate, unspecified formulation 2018-10-13 00:00:00 Completed [facility] Pneumococcal Conjugate, unspecified formulation Pneumococcal Conjugate, unspecified formulation 2018-10-13 00:00:00 Completed [facility] Pneumococcal Conjugate, unspecified formulation Pneumococcal Conjugate, unspecified formulation 2018-10-13 00:00:00 Completed [facility] Pneumococcal Conjugate, unspecified formulation Pneumococcal Conjugate, unspecified formulation 2018-10-13 00:00:00 Completed [facility] Pneumococcal Conjugate, unspecified formulation Pneumococcal Conjugate, unspecified formulation 2018-10-13 00:00:00 Completed [facility] Pneumococcal Conjugate, unspecified formulation Pneumococcal Conjugate, unspecified formulation 2018-10-13 00:00:00 Completed [facility] pneumococcal, unspecified formulation pneumococcal, unspecified formulation Unknown Completed [facility] influenza, unspecified formulation influenza, unspecified formulation Unknown Completed [facility] Pneumococcal Conjugate, unspecified formulation Pneumococcal Conjugate, unspecified formulation Unknown Completed [facility] pneumococcal, unspecified formulation pneumococcal, unspecified formulation Unknown Completed [facility] influenza, unspecified formulation influenza, unspecified formulation Unknown Completed [facility] Pneumococcal Conjugate, unspecified formulation Pneumococcal Conjugate, unspecified formulation Unknown Completed [facility] pneumococcal, unspecified formulation pneumococcal, unspecified formulation Unknown Completed [facility] influenza, unspecified formulation influenza, unspecified formulation Unknown Completed [facility] Pneumococcal Conjugate, unspecified formulation Pneumococcal Conjugate, unspecified formulation Unknown Completed [facility] pneumococcal, unspecified formulation pneumococcal, unspecified formulation Unknown Completed [facility] influenza, unspecified formulation influenza, unspecified formulation Unknown Completed [facility] Pneumococcal Conjugate, unspecified formulation Pneumococcal Conjugate, unspecified formulation Unknown Completed [facility] pneumococcal, unspecified formulation pneumococcal, unspecified formulation Unknown Completed [facility] influenza, unspecified formulation influenza, unspecified formulation Unknown Completed [facility] Pneumococcal Conjugate, unspecified formulation Pneumococcal Conjugate, unspecified formulation Unknown Completed [facility] Vital Signs Vital Name Observation Time Observation Value Comments S ource Body Weight 2023-09-26 00:00:00 120 [lb_av] [facility] Diastolic 2023-09-26 00:00:00 84 mm[Hg] [facility] BP Systolic 2023-09-26 00:00:00 124 mm[Hg] [facility] Height 2023-09-26 00:00:00 63 [in_i] [place] [facility] BMI (Body Mass Index) 2023-09-26 00:00:00 21.3 kg/m2 [facility] Height 2023-09-16 00:00:00 63 [in_i] [place] [facility] Body Weight 2023-08-04 00:00:00 120 [lb_av] [facility] BP Systolic 2023-08-04 00:00:00 130 mm[Hg] [facility] Height 2023-08-04 00:00:00 63 [in_i] [place] [facility] BP Diastolic 2023-08-04 00:00:00 96 mm[Hg] [facility] BMI (Body Mass Index) 2023-08-04 00:00:00 21.3 kg/m2 [place] [facility] BP Systolic 2023-07-14 00:00:00 140 mm[Hg] [facility] Height 2023-07-14 00:00:00 63 [in_i] [place] [facility] BMI (Body Mass Index) 2023-07-14 00:00:00 21.3 kg/m2 [place] [facility] BP Diastolic 2023-07-14 00:00:00 82 mm[Hg] [facility] Body Weight 2023-07-14 00:00:00 120 [lb_av] [facility] Body Weight 2023-06-30 00:00:00 120 [lb_av] [facility] BP Diastolic 2023-06-30 00:00:00 84 mm[Hg] [facility] BMI (Body Mass Index) 2023-06-30 00:00:00 21.3 kg/m2 [place] [facility] BP Systolic 2023-06-30 00:00:00 128 mm[Hg] [place] [facility] Height 2023-06-30 00:00:00 63 [in_i] [place] [facility] Body Weight 2023-06-13 00:00:00 120 [lb_av] [facility] BP Systolic 2023-06-13 00:00:00 126 mm[Hg] [place] [facility] Height 2023-06-13 00:00:00 63 [in_i] [place] [facility] BMI (Body Mass Index) 2023-06-13 00:00:00 21.3 kg/m2 [place] [facility] BP Diastolic 2023-06-13 00:00:00 80 mm[Hg] [facility] Height 2023-05-29 00:00:00 63 [in_i] [place] [facility] BP Diastolic 2023-05-29 00:00:00 82 mm[Hg] [facility] Body Weight 2023-05-29 00:00:00 120 [lb_av] [facility] BP Systolic 2023-05-29 00:00:00 142 mm[Hg] [place] [facility] BMI (Body Mass Index) 2023-05-29 00:00:00 21.3 kg/m2 [place] [facility] BP Diastolic 2023-04-30 00:00:00 88 mm[Hg] [facility] Height 2023-04-30 00:00:00 63 [in_i] [place] [facility] BMI (Body Mass Index) 2023-04-30 00:00:00 21.3 kg/m2 [place] [facility] BP Systolic 2023-04-30 00:00:00 118 mm[Hg] [place] [facility] Body Weight 2023-04-30 00:00:00 120 [lb_av] [facility] BP Diastolic 2023-04-09 00:00:00 82 mm[Hg] [facility] Height 2023-04-09 00:00:00 63 [in_i] [place] [facility] BMI (Body Mass Index) 2023-04-09 00:00:00 21.3 kg/m2 [place] [facility] BP Systolic 2023-04-09 00:00:00 134 mm[Hg] [place] [facility] Body Weight 2023-04-09 00:00:00 120 [lb_av] [facility] BP Diastolic 2022-12-23 00:00:00 78 mm[Hg] [facility] Height 2022-12-23 00:00:00 63 [in_i] [facility] BMI (Body Mass Index) 2022-12-23 00:00:00 22 kg/m2 [facility] BP Systolic 2022-12-23 00:00:00 143 mm[Hg] [facility] Body Weight 2022-12-23 00:00:00 1984 [oz_av] [facility] BP Diastolic 2022-11-26 00:00:00 82 mm[Hg] [facility] Height 2022-11-26 00:00:00 63 [in_i] [facility] BMI (Body Mass Index) 2022-11-26 00:00:00 23.6 kg/m2 [facility] BP Systolic 2022-11-26 00:00:00 145 mm[Hg] [facility] Body Weight 2022-11-26 00:00:00 2128 [oz_av] [facility] BP Diastolic 2022-09-20 00:00:00 85 mm[Hg] [facility] Height 2022-09-20 00:00:00 63 [in_i] [facility] BMI (Body Mass Index) 2022-09-20 00:00:00 23 kg/m2 [facility] BP Systolic 2022-09-20 00:00:00 146 mm[Hg] [facility] Body Weight 2022-09-20 00:00:00 2080 [oz_av] [facility] BP Diastolic 2022-07-04 00:00:00 89 mm[Hg] [facility] Height 2022-07-04 00:00:00 63 [in_i] [facility] BMI (Body Mass Index) 2022-07-04 00:00:00 23 kg/m2 [facility] BP Systolic 2022-07-04 00:00:00 157 mm[Hg] [facility] Body Weight 2022-07-04 00:00:00 2080 [oz_av] [facility] BP Diastolic 2022-05-31 00:00:00 71 mm[Hg] [facility] Height 2022-05-31 00:00:00 63 [in_i] [facility] BMI (Body Mass Index) 2022-05-31 00:00:00 23.1 kg/m2 [facility] BP Systolic 2022-05-31 00:00:00 127 mm[Hg] [facility] Body Weight 2022-05-31 00:00:00 2082 [oz_av] [facility] BP Diastolic 2022-04-04 00:00:00 84 mm[Hg] [facility] Height 2022-04-04 00:00:00 63 [in_i] [facility] BMI (Body Mass Index) 2022-04-04 00:00:00 [facility].2 [facility] 2022-04-04 00:00:00 166 mm[Hg] [facility] Body Weight 2022-04-04 00:00:00 2098 [oz_av] [facility] Procedures Procedure Date / Time Performed Performing Clinicmi n Source MRI, pelvis, w/wo contrast 2023-07-14 00:00:00 [facility] CT, abdomen + pelvis, w/wo contrast 2023-04-09 00:00:00 [facility] BONE DENSITY MEASUREMENT USING DEDICATED X RAY MACHINE 2022-12-23 00:00:00 [facility] Medical CT, chest, w/o contrast 2022-11-26 00:00:00 [facility] Medical Colonoscopy with Biopsy 2019-11-13 00:00:00 [facility] Orthopedic - Knee Surgery 2007-10-13 00:00:00 [facility] Medical Operation on Prostate [place] [facility] Diagnostic Colonoscopy [place] [facility] Repair [facility] Plan of Care Planned Activity Planned Date Details Comments Source Diagnostic Test Pending 2023-09-16 00:00:00 biopsy, prostate [code = biopsy, prostate] [facility] Diagnostic Test Pending 2022-12-23 00:00:00 lipid panel, serum [code = lipid panel, serum] [facility] Medical Diagnostic Test Pending 2022-12-23 00:00:00 CBC w/ auto diff [code = CBC w/ auto diff] [facility] Medical Diagnostic Test Pending 2022-12-23 00:00:00 CMP, serum or plasma [code = CMP, serum or plasma] [facility] Medical Diagnostic Test Pending 2022-12-23 00:00:00 urinalysis, complete [code = urinalysis, complete] [facility] Medical Future Appointment 2024-03-27 00:00:[address]; , [place] [address] [facility] U[facility] Future Appointment 2024-03-26 11:00:00 [address]; , [place] [address] [facility] Encounters Start Date/Time End Date/Time Encounter Type Admission Type Attending [facility] Care Department Encounter ID Source 2023-10-03 00:00:00 2023-10-03 00:00:00 Outpatient Champion_P HMU HMU [id number] [facility] 2023-09-26 00:00:00 2023-09-26 00:00:00 Outpatient Champion_P HMU HMU [id number] [facility] 2023-09-26 00:00:00 2023-09-26 00:00:00 Rachid Henderson MD: [address], [place] [address] , Ph. [facility] [place] [id number] [facility] 2023-09-23 00:00:00 2023-09-23 00:00:00 Rachid Henderson MD: [address], [place] [address] , Ph. [facility] - [place] [id number] [facility] 2023-09-16 00:00:00 2023-09-16 00:00:00 Outpatient Champion_P HMU HMU [id number] [facility] 2023-09-16 00:00:00 2023-09-16 00:00:00 Outpatient Champion_P HMU HMU [id number] [facility] 2023-09-16 00:00:00 2023-09-16 00:00:00 Outpatient Champion_P HMU HMU [id number] [facility] 2023-09-16 00:00:00 2023-09-16 00:00:00 Rachid Henderson MD: [address] [place] [address] , Ph. [facility] [place] [facility] - 100 [id number] [facility] 2023-09-09 00:00:00 2023-09-09 00:00:00 Outpatient GC_CPC_Walk InSchedul PRIV PRIV [id number] [facility] 2023-08-27 00:00:00 2023-08-27 00:00:00 Outpatient GC_CPC_Walk InSchedul [facility] PRIV [id number] [facility] 2023-08-26 00:00:00 2023-08-26 00:00:00 Outpatient Champion_P HMU HMU [id number] [facility] 2023-08-26 00:00:00 2023-08-26 00:00:00 Outpatient Champion_P HMU HMU [id number] [facility] 2023-08-19 00:00:00 2023-08-19 00:00:00 Outpatient GC_CPC_Cama cho_C [facility] [id number] [facility] 2023-08-04 00:00:00 2023-08-04 00:00:00 Outpatient Champion_P HMU HMU [id number] [facility] 2023-08-04 00:00:00 2023-08-04 00:00:00 Outpatient Champion_P HMU HMU [id number] [facility] 2023-08-04 00:00:00 2023-08-04 00:00:00 Rachid Henderson MD: [address] [place] [address] , Ph. [facility] JAME - HELEN [id number] [facility] 2023-07-31 00:00:00 2023-07-31 00:00:00 Outpatient Champion_P HMU HMU [id number] [facility] 2023-07-31 00:00:00 2023-07-31 00:00:00 Outpatient Champion_P HMU HMU [id number] [facility] 2023-07-14 00:00:00 2023-07-14 00:00:00 Outpatient Champion_P HMU HMU [id number] [facility] 2023-07-14 00:00:00 2023-07-14 00:00:00 Outpatient Champion_P HMU HMU [id number] [facility] 2023-07-14 00:00:00 2023-07-14 00:00:00 Rachid Henderson MD: [address] [place] [address] , [facility] [place] [id number] [facility] 2023-07-03 00:00:00 2023-07-03 00:00:00 Outpatient Champion_P HMU HMU [id number] [facility] 2023-06-30 00:00:00 2023-06-30 00:00:00 Outpatient Champion_P HMU HMU [id number] [facility] 2023-06-30 00:00:00 2023-06-30 00:00:00 Outpatient Champion_P HMU HMU [id number] [facility] 2023-06-30 00:00:00 2023-06-30 00:00:00 Rachid Henderson MD: [address] [address] , [facility]. [facility] [place] [id number] [facility] 2023-06-25 00:00:00 2023-06-25 00:00:00 Outpatient Champion_P HMU HMU [id number] [facility] 2023-06-19 00:00:00 2023-06-19 00:00:00 Outpatient Champion_P HMU HMU [id number] [facility] 2023-06-13 00:00:00 2023-06-13 00:00:00 Outpatient Champion_P HMU HMU [id number] [facility] 2023-06-13 00:00:00 2023-06-13 00:00:00 Rachid Henderson MD: [address], [place] [address] , [facility]. [facility] [place] [id number] [facility] 2023-05-29 00:00:00 2023-05-29 00:00:00 Outpatient Champion_P HMU HMU [id number] [facility] 2023-05-29 00:00:00 2023-05-29 00:00:00 Outpatient Champion_P HMU HMU [id number] [facility] 2023-05-29 00:00:00 2023-05-29 00:00:00 Outpatient Champion_P HMU HMU [id number] [facility] 2023-05-29 00:00:00 2023-05-29 00:00:00 Rachid Henderson MD: [address] [facility] [address], [place] [address] , Ph. [facility] JAME - [place] [id number] [facility] 2023-05-12 00:00:00 2023-05-12 00:00:00 Outpatient GC_CPC_Cama cho_C [facility] [id number] [facility] 2023-05-05 00:00:00 2023-05-05 00:00:00 Outpatient Champion_P HMU HMU [id number] [facility] 2023-05-01 00:00:00 2023-05-01 00:00:00 Outpatient Champion_P HMU HMU [id number] [facility] 2023-04-30 00:00:00 2023-04-30 00:00:00 Outpatient Champion_P HMU HMU [id number] [facility] 2023-04-30 00:00:00 2023-04-30 00:00:00 Rachid Henderson MD: [address] [facility] [address], [place] [address] , Ph. U [facility] [place] - [place] [id number] [facility] 2023-04-09 00:00:00 2023-04-09 00:00:00 Outpatient Champion_P HMU HMU [id number] [facility] 2023-04-09 00:00:00 2023-04-09 00:00:00 Outpatient Champion_P HMU [facility] [id number] [facility] 2023-04-09 00:00:00 2023-04-09 00:00:00 Rachid Henderson MD: [facility] [address] [address] , Ph. [facility] [place] - [place] [id number] [facility] 2023-04-07 00:00:00 2023-04-07 00:00:00 Outpatient Champion_P HMU [facility] [id number] [facility] 2023-04-07 00:00:00 2023-04-07 00:00:00 Outpatient Champion_P HMU [facility] [id number] [facility] 2023-03-16 00:00:00 2023-03-16 00:00:00 Outpatient GC_CPC_Cama cho_C PRIV PRIV [id number] [facility] 2023-02-16 00:00:00 2023-02-16 00:00:00 Outpatient GC_CPC_Cama cho_C PRIV PRIV [id number] [facility] 2023-02-16 00:00:00 2023-02-16 00:00:00 Outpatient GC_CPC_Cama cho_C PRIV PRIV [id number] [facility] 2023-01-19 00:00:00 2023-01-19 00:00:00 Outpatient GC_CPC_Cama cho_C PRIV PRIV [id number] [facility] 2022-12-23 00:00:00 2022-12-23 00:00:00 JAME Armstrong: [address] [address] , Ph. [facility] - GC_CPC_Need jennifer Office [id number] [facility] 2022-11-28 00:00:00 2022-11-28 00:00:00 Outpatient GC_CPC_Cama cho_C [facility] [id number] [facility] 2022-11-26 00:00:00 2022-11-26 00:00:00 Outpatient GC_CPC_Cama cho_C [facility] [id number] [facility] 2022-11-26 00:00:00 2022-11-26 00:00:00 Sridevi Ramirez [place]: [address] [address] , Ph. [facility] - GC_CPC_Need jennifer Office [id number] [facility] 2022-11-12 00:00:00 2022-11-12 00:00:00 Outpatient GC_CPC_Cama cho_C [facility] [id number] [facility] 2022-11-12 00:00:00 2022-11-12 00:00:00 EVELYNE CruzC: [address] [id number] , Ph. [facility] - GC_CPC_[place] Office* [id number] [facility] 2022-11-11 00:00:00 2022-11-11 00:00:00 Outpatient GC_CPCN_Wal k-In [facility] [id number] [facility] 2022-10-14 00:00:00 2022-10-14 00:00:00 Outpatient GC_CPCN_Wal k-In [facility] [id number] [facility] 2022-09-20 00:00:00 2022-09-20 00:00:00 Outpatient GC_CPCN_Wal k-In [facility] [id number] [facility] 2022-09-20 00:00:00 2022-09-20 00:00:00 Abhilash Boucher, CIRCULAR SHEAR OPERATOR: [address] [address] , Ph. [facility] - GC_CPCN_[place] Office* [id number] [facility] 2022-09-16 00:00:00 2022-09-16 00:00:00 Outpatient GC_CPCN_Wal k-In [facility] PRIV [id number] [facility] 2022-09-02 00:00:00 2022-09-02 00:00:00 Abhilash Boucher, CIRCULAR SHEAR OPERATOR: [address] [address] , Ph. [facility] - GC_CPCN_Nee [facility] Office* [id number] [facility] 2022-08-15 00:00:00 2022-08-15 00:00:00 Outpatient GC_CPCN_Wal k-In [facility] [id number] [facility] 2022-08-14 00:00:00 2022-08-14 00:00:00 Outpatient [facility] [id number] [facility] 2022-07-24 00:00:00 2022-07-24 00:00:00 Outpatient GC_CPCN_Wal k-In [facility] PRIV [id number] [facility] 2022-07-22 00:00:00 2022-07-22 00:00:00 Outpatient GC_CPCN_Wal k-In [facility] PRIV [id number] [facility] 2022-07-04 00:00:00 2022-07-04 00:00:00 Outpatient GC_CPCN_Wal k-In [facility] PRIV [id number] [facility] 2022-07-04 00:00:00 2022-07-04 00:00:00 Abhilash Boucher, CIRCULAR SHEAR OPERATOR: [address] [address] , Ph. [facility] - GC_CPCN_Nee [facility] Office* [id number] [facility] 2022-06-24 00:00:00 2022-06-24 00:00:00 Outpatient GC_CPCN_Wal k-In [facility] PRIV [id number] [facility] 2022-05-31 00:00:00 2022-05-31 00:00:00 Outpatient GC_CPCN_Wal k-In [facility] [id number] [facility] 2022-05-31 00:00:00 2022-05-31 00:00:00 Outpatient Abhilash Boucher [facility] [id number] 2022-05-31 00:00:00 2022-05-31 00:00:00 Abhilash Boucher, CIRCULAR SHEAR OPERATOR: [address] [address] , Ph. [facility] - GC_CPCN_[place] Office* [id number] [facility] 2022-05-27 00:00:00 2022-05-27 00:00:00 Outpatient GC_CPCN_Wal k-In [facility] [id number] [facility] 2022-04-29 12:56:00 2022-04-29 12:56:00 Outpatient GC_CPCN_Wal k-In [facility] [id number] [facility] 2022-04-04 10:13:00 2022-04-04 10:13:00 Outpatient GC_CPCN_Wal k-In [facility] [id number] [facility] 2022-04-04 00:00:00 2022-04-04 00:00:00 Outpatient Abhilash Boucher [facility] [id number] 2022-04-04 00:00:00 2022-04-04 00:00:00 Abhilash Boucher, CIRCULAR SHEAR OPERATOR: [address] [address] , Ph. [facility] - GC_CPCN_[place] Office* [id number] [facility] Medical Results Test Description Test Time Test Comments Results Result Co mments Source [facility] UrologyUrinalysis macro (dipstick) panel - [id number] 11:20:00* Test Item Value Reference Range Interpretation Comme nts leukocytes (test code = leukocytes) negative neg urobilinogen (test code = urobilinogen) 0.2 E.U./dL sm amt (.5-1mg/dL) protein (test code = protein) negative See_Comment [Automated messa ge] The system which generated this result transmitted reference range: <=150 mg/d. The reference range was not used to interpret this result as normal/abnormal. pH (test code = pH) 6.0 4.5-8 blood (test code = blood) negative See_Comment [Automated messa ge] The system which generated this result transmitted reference range: <=3 RBC. The reference range was not used to interpret this result as normal/abnormal. specific gravity (test code = specific gravity) >=1.030 1.005-1.025 ketone (test code = ketone) negative none bilirubin (test code = bilirubin) negative neg glucose (test code = glucose) negative See_Comment [Automated messa ge] The system which generated this result transmitted reference range: <=130 mg/d. The reference range was not used to interpret this result as normal/abnormal. color (test code = color) yellow yellow clarity (test code = clarity) clear clear or cloudy nitrite (test code = nitrite) negative neg [facility] UrologyProstate specific Ag panel - Serum or [id number] 00:00:00* Test Item Value Reference Range Interpretation Comme nts Prostate specific Ag [Mass/volume] in Serum or Plasma (test code = 2857-1) 8.7 NG/mL See_Comment H [Automated message] The system which generated this result transmitted reference range: < or = 4.0. The reference range was not used to interpret this result as normal/abnormal. Prostate Specific Ag Free [Mass/volume] in Serum or Plasma (test code = 88691-8) 1.0 NG/mL Prostate Specific Ag Free/Prostate specific Ag.total in Serum or Plasma (test code = 86392-7) 11 % (calc) >25 L [facility] UrologyUrinalysis macro (dipstick) panel - [id number] 10:54:00* Test Item Value Reference Range Interpretation Comme nts leukocytes (test code = leukocytes) negative neg urobilinogen (test code = urobilinogen) 0.2 E.U./dL sm amt (.5-1mg/dL) protein (test code = protein) trace See_Comment [Automated messa ge] The system which generated this result transmitted reference range: <=150 mg/d. The reference range was not used to interpret this result as normal/abnormal. pH (test code = pH) 7.5 4.5-8 blood (test code = blood) negative See_Comment [Automated messa ge] The system which generated this result transmitted reference range: <=3 RBC. The reference range was not used to interpret this result as normal/abnormal. specific gravity (test code = specific gravity) 1.025 1.005-1.025 ketone (test code = ketone) negative none bilirubin (test code = bilirubin) negative neg glucose (test code = glucose) negative See_Comment [Automated messa ge] The system which generated this result transmitted reference range: <=130 mg/d. The reference range was not used to interpret this result as normal/abnormal. color (test code = color) yellow yellow clarity (test code = clarity) clear clear or cloudy nitrite (test code = nitrite) negative neg [facility] UrologyUrinalysis macro (dipstick) panel - [id number] 10:54:00* Test Item Value Reference Range Interpretation Comme nts leukocytes (test code = leukocytes) negative neg urobilinogen (test code = urobilinogen) 0.2 E.U./dL sm amt (.5-1mg/dL) protein (test code = protein) trace See_Comment [Automated messa ge] The system which generated this result transmitted reference range: <=150 mg/d. The reference range was not used to interpret this result as normal/abnormal. pH (test code = pH) 7.5 4.5-8 blood (test code = blood) negative See_Comment [Automated messa ge] The system which generated this result transmitted reference range: <=3 RBC. The reference range was not used to interpret this result as normal/abnormal. specific gravity (test code = specific gravity) 1.025 1.005-1.025 ketone (test code = ketone) negative none bilirubin (test code = bilirubin) negative neg glucose (test code = glucose) negative See_Comment [Automated messa ge] The system which generated this result transmitted reference range: <=130 mg/d. The reference range was not used to interpret this result as normal/abnormal. color (test code = color) yellow yellow clarity (test code = clarity) clear clear or cloudy nitrite (test code = nitrite) negative neg [place] [facility] Ag panel - Serum or [id number] 00:00:00* Test Item Value Reference Range Interpretation Comme nts Prostate specific Ag [Mass/volume] in Serum or Plasma (test code = 2857-1) 6.0 NG/mL See_Comment H [Automated message] The system which generated this result transmitted reference range: < or = 4.0. The reference range was not used to interpret this result as normal/abnormal. Prostate Specific Ag Free [Mass/volume] in Serum or Plasma (test code = 58344-9) 0.9 NG/mL Prostate Specific Ag Free/Prostate specific Ag.total in Serum or Plasma (test code = 60210-0) 15 % (calc) >25 L [place] [facility], [id number] 10:31:48* Test Item Value Reference Range Interpretation Comme nts Result: (test code = Result:) moderate sediment, 0-2 RBC, 0 WBC, no bacteria [facility], [id number] 10:31:48* Test Item Value Reference Range Interpretation Comme nts Result: (test code = Result:) moderate sediment, 0-2 RBC, 0 WBC, no bacteria [place] [facility] macro (dipstick) panel - [id number] 10:07:00* Test Item Value Reference Range Interpretation Comme nts leukocytes (test code = leukocytes) negative neg urobilinogen (test code = urobilinogen) 0.2 E.U./dL sm amt (.5-1mg/dL) protein (test code = protein) negative See_Comment [Automated message] The system which generated this result transmitted reference range: <=150 mg/d. The reference range was not used to interpret this result as normal/abnormal. pH (test code = pH) 7.0 4.5-8 blood (test code = blood) trace-intact See_Comment [Automated message] The system which generated this result transmitted reference range: <=3 RBC. The reference range was not used to interpret this result as normal/abnormal. specific gravity (test code = specific gravity) 1.020 1.005-1.025 ketone (test code = ketone) negative none bilirubin (test code = bilirubin) negative neg glucose (test code = glucose) negative See_Comment [Automated message] The system which generated this result transmitted reference range: <=130 mg/d. The reference range was not used to interpret this result as normal/abnormal. color (test code = color) light yellow yellow clarity (test code = clarity) slightly cloudy clear or cloudy nitrite (test code = nitrite) negative neg [facility] (dipstick) panel - [id number] 10:07:00* Test Item Value Reference Range Interpretation Comme nts leukocytes (test code = leukocytes) negative neg urobilinogen (test code = urobilinogen) 0.2 E.U./dL sm amt (.5-1mg/dL) protein (test code = protein) negative See_Comment [Automated message] The system which generated this result transmitted reference range: <=150 mg/d. The reference range was not used to interpret this result as normal/abnormal. pH (test code = pH) 7.0 4.5-8 blood (test code = blood) trace-intact See_Comment [Automated message] The system which generated this result transmitted reference range: <=3 RBC. The reference range was not used to interpret this result as normal/abnormal. specific gravity (test code = specific gravity) 1.020 1.005-1.025 ketone (test code = ketone) negative none bilirubin (test code = bilirubin) negative neg glucose (test code = glucose) negative See_Comment [Automated message] The system which generated this result transmitted reference range: <=130 mg/d. The reference range was not used to interpret this result as normal/abnormal. color (test code = color) light yellow yellow clarity (test code = clarity) slightly cloudy clear or cloudy nitrite (test code = nitrite) negative neg [facility], [id number] 10:07:46* Test Item Value Reference Range Interpretation Comme nts Result: (test code = Result:) 10-20 RBC, 0 WBC, no bacteria [facility], [id number] 10:07:46* Test Item Value Reference Range Interpretation Comme nts Result: (test code = Result:) 10-20 RBC, 0 WBC, no bacteria [place] [facility] macro (dipstick) panel - [id number] 09:52:00* Test Item Value Reference Range Interpretation Comme nts leukocytes (test code = leukocytes) negative neg urobilinogen (test code = urobilinogen) 0.2 E.U./dL sm amt (.5-1mg/dL) protein (test code = protein) negative See_Comment [Automated messa ge] The system which generated this result transmitted reference range: <=150 mg/d. The reference range was not used to interpret this result as normal/abnormal. pH (test code = pH) 7.0 4.5-8 blood (test code = blood) moderate See_Comment [Automated messa ge] The system which generated this result transmitted reference range: <=3 RBC. The reference range was not used to interpret this result as normal/abnormal. specific gravity (test code = specific gravity) >=1.030 1.005-1.025 ketone (test code = ketone) negative none bilirubin (test code = bilirubin) negative neg glucose (test code = glucose) negative See_Comment [Automated messa ge] The system which generated this result transmitted reference range: <=130 mg/d. The reference range was not used to interpret this result as normal/abnormal. color (test code = color) yellow yellow clarity (test code = clarity) other clear or cloudy nitrite (test code = nitrite) negative neg [facility]rologyUr[facility] macro (dipstick) panel - [id number] 09:52:00* Test Item Value Reference Range Interpretation Comme nts leukocytes (test code = leukocytes) negative neg urobilinogen (test code = urobilinogen) 0.2 E.U./dL sm amt (.5-1mg/dL) protein (test code = protein) negative See_Comment [Automated messa ge] The system which generated this result transmitted reference range: <=150 mg/d. The reference range was not used to interpret this result as normal/abnormal. pH (test code = pH) 7.0 4.5-8 blood (test code = blood) moderate See_Comment [Automated messa ge] The system which generated this result transmitted reference range: <=3 RBC. The reference range was not used to interpret this result as normal/abnormal. specific gravity (test code = specific gravity) >=1.030 1.005-1.025 ketone (test code = ketone) negative none bilirubin (test code = bilirubin) negative neg glucose (test code = glucose) negative See_Comment [Automated messa ge] The system which generated this result transmitted reference range: <=130 mg/d. The reference range was not used to interpret this result as normal/abnormal. color (test code = color) yellow yellow clarity (test code = clarity) other clear or cloudy nitrite (test code = nitrite) negative neg [place] [facility] UrologyUrinalysis macro (dipstick) panel - [id number] 11:55:00* Test Item Value Reference Range Interpretation Comme nts leukocytes (test code = leukocytes) negative neg urobilinogen (test code = urobilinogen) 0.2 E.U./dL sm amt (.5-1mg/dL) protein (test code = protein) negative See_Comment [Automated messa ge] The system which generated this result transmitted reference range: <=150 mg/d. The reference range was not used to interpret this result as normal/abnormal. pH (test code = pH) 7.5 4.5-8 blood (test code = blood) negative See_Comment [Automated messa ge] The system which generated this result transmitted reference range: <=3 RBC. The reference range was not used to interpret this result as normal/abnormal. specific gravity (test code = specific gravity) 1.025 1.005-1.025 ketone (test code = ketone) negative none bilirubin (test code = bilirubin) negative neg glucose (test code = glucose) negative See_Comment [Automated messa ge] The system which generated this result transmitted reference range: <=130 mg/d. The reference range was not used to interpret this result as normal/abnormal. color (test code = color) yellow yellow clarity (test code = clarity) clear clear or cloudy nitrite (test code = nitrite) negative neg [place] [facility] macro (dipstick) panel - [id number] 11:55:00* Test Item Value Reference Range Interpretation Comme nts leukocytes (test code = leukocytes) negative neg urobilinogen (test code = urobilinogen) 0.2 E.U./dL sm amt (.5-1mg/dL) protein (test code = protein) negative See_Comment [Automated messa ge] The system which generated this result transmitted reference range: <=150 mg/d. The reference range was not used to interpret this result as normal/abnormal. pH (test code = pH) 7.5 4.5-8 blood (test code = blood) negative See_Comment [Automated messa ge] The system which generated this result transmitted reference range: <=3 RBC. The reference range was not used to interpret this result as normal/abnormal. specific gravity (test code = specific gravity) 1.025 1.005-1.025 ketone (test code = ketone) negative none bilirubin (test code = bilirubin) negative neg glucose (test code = glucose) negative See_Comment [Automated messa ge] The system which generated this result transmitted reference range: <=130 mg/d. The reference range was not used to interpret this result as normal/abnormal. color (test code = color) yellow yellow clarity (test code = clarity) clear clear or cloudy nitrite (test code = nitrite) negative neg [facility] UrologyUrinalysis macro (dipstick) panel - [id number] 17:45:00* Test Item Value Reference Range Interpretation Comme nts leukocytes (test code = leukocytes) negative neg urobilinogen (test code = urobilinogen) 0.2 E.U./dL sm amt (.5-1mg/dL) protein (test code = protein) negative See_Comment [Automated messa ge] The system which generated this result transmitted reference range: <=150 mg/d. The reference range was not used to interpret this result as normal/abnormal. pH (test code = pH) 7.5 4.5-8 blood (test code = blood) negative See_Comment [Automated messa ge] The system which generated this result transmitted reference range: <=3 RBC. The reference range was not used to interpret this result as normal/abnormal. specific gravity (test code = specific gravity) 1.020 1.005-1.025 ketone (test code = ketone) negative none bilirubin (test code = bilirubin) negative neg glucose (test code = glucose) negative See_Comment [Automated messa ge] The system which generated this result transmitted reference range: <=130 mg/d. The reference range was not used to interpret this result as normal/abnormal. color (test code = color) yellow yellow clarity (test code = clarity) clear clear or cloudy nitrite (test code = nitrite) negative neg [facility] UrologyUrinalysis macro (dipstick) panel - [id number] 17:45:00* Test Item Value Reference Range Interpretation Comme nts leukocytes (test code = leukocytes) negative neg urobilinogen (test code = urobilinogen) 0.2 E.U./dL sm amt (.5-1mg/dL) protein (test code = protein) negative See_Comment [Automated messa ge] The system which generated this result transmitted reference range: <=150 mg/d. The reference range was not used to interpret this result as normal/abnormal. pH (test code = pH) 7.5 4.5-8 blood (test code = blood) negative See_Comment [Automated messa ge] The system which generated this result transmitted reference range: <=3 RBC. The reference range was not used to interpret this result as normal/abnormal. specific gravity (test code = specific gravity) 1.020 1.005-1.025 ketone (test code = ketone) negative none bilirubin (test code = bilirubin) negative neg glucose (test code = glucose) negative See_Comment [Automated messa ge] The system which generated this result transmitted reference range: <=130 mg/d. The reference range was not used to interpret this result as normal/abnormal. color (test code = color) yellow yellow clarity (test code = clarity) clear clear or cloudy nitrite (test code = nitrite) negative neg [facility] UrologyMicroscopic observation [Identifier] in Urine by Cyto stain 2023-04-14 00:00:00A SourceA Gross DescriptionA DiagnosisA CommentChristus [facility]rology[facility]opic observation [Identifier] in Urine by Cyto [id number] 00:00:00A SourceA Gross DescriptionA DiagnosisA CommentChristus [facility] urinalysis, [id number] 14:16:33* Test Item Value Reference Range Interpretation Comme nts Result: (test code = Result:) 0 RBC, 0 WBC, no bacteria [place] [facility], [id number] 14:16:33* Test Item Value Reference Range Interpretation Comme nts Result: (test code = Result:) 0 RBC, 0 WBC, no bacteria [facility], [id number] 14:16:33* Test Item Value Reference Range Interpretation Comme nts Result: (test code = Result:) 0 RBC, 0 WBC, no bacteria [facility] (dipstick) panel - [id number] 13:46:00* Test Item Value Reference Range Interpretation Comme nts leukocytes (test code = leukocytes) negative neg urobilinogen (test code = urobilinogen) 0.2 E.U./dL sm amt (.5-1mg/dL) protein (test code = protein) negative See_Comment [Automated messa ge] The system which generated this result transmitted reference range: <=150 mg/d. The reference range was not used to interpret this result as normal/abnormal. pH (test code = pH) 7.0 4.5-8 blood (test code = blood) negative See_Comment [Automated messa ge] The system which generated this result transmitted reference range: <=3 RBC. The reference range was not used to interpret this result as normal/abnormal. specific gravity (test code = specific gravity) >=1.030 1.005-1.025 ketone (test code = ketone) negative none bilirubin (test code = bilirubin) negative neg glucose (test code = glucose) negative See_Comment [Automated messa ge] The system which generated this result transmitted reference range: <=130 mg/d. The reference range was not used to interpret this result as normal/abnormal. color (test code = color) yellow yellow clarity (test code = clarity) clear clear or cloudy nitrite (test code = nitrite) negative neg [place] [facility] macro (dipstick) panel - [id number] 13:46:00* Test Item Value Reference Range Interpretation Comme nts leukocytes (test code = leukocytes) negative neg urobilinogen (test code = urobilinogen) 0.2 E.U./dL sm amt (.5-1mg/dL) protein (test code = protein) negative See_Comment [Automated messa ge] The system which generated this result transmitted reference range: <=150 mg/d. The reference range was not used to interpret this result as normal/abnormal. pH (test code = pH) 7.0 4.5-8 blood (test code = blood) negative See_Comment [Automated messa ge] The system which generated this result transmitted reference range: <=3 RBC. The reference range was not used to interpret this result as normal/abnormal. specific gravity (test code = specific gravity) >=1.030 1.005-1.025 ketone (test code = ketone) negative none bilirubin (test code = bilirubin) negative neg glucose (test code = glucose) negative See_Comment [Automated messa ge] The system which generated this result transmitted reference range: <=130 mg/d. The reference range was not used to interpret this result as normal/abnormal. color (test code = color) yellow yellow clarity (test code = clarity) clear clear or cloudy nitrite (test code = nitrite) negative neg [facility] UrologyUrinalysis macro (dipstick) panel - [id number] 13:46:00* Test Item Value Reference Range Interpretation Comme nts leukocytes (test code = leukocytes) negative neg urobilinogen (test code = urobilinogen) 0.2 E.U./dL sm amt (.5-1mg/dL) protein (test code = protein) negative See_Comment [Automated messa ge] The system which generated this result transmitted reference range: <=150 mg/d. The reference range was not used to interpret this result as normal/abnormal. pH (test code = pH) 7.0 4.5-8 blood (test code = blood) negative See_Comment [Automated messa ge] The system which generated this result transmitted reference range: <=3 RBC. The reference range was not used to interpret this result as normal/abnormal. specific gravity (test code = specific gravity) >=1.030 1.005-1.025 ketone (test code = ketone) negative none bilirubin (test code = bilirubin) negative neg glucose (test code = glucose) negative See_Comment [Automated messa ge] The system which generated this result transmitted reference range: <=130 mg/d. The reference range was not used to interpret this result as normal/abnormal. color (test code = color) yellow yellow clarity (test code = clarity) clear clear or cloudy nitrite (test code = nitrite) negative neg [facility]rology
--- NOTE | 2023-12-02 15:45 | RAD REPORT ---
EXAM DESCRIPTION: RAD - Hand Right 3 View - 12/02/2023 3:33 pm CLINICAL HISTORY: Right hand pain status post injury FINDINGS: No fracture or dislocation is seen.
--- NOTE | 2023-12-02 15:50 | ER ---
Nurse's Notes [facility] Name: Pipo Fabian Age: 78 yrs Sex: Male : 1945 Arrival Date: 12/02/2023 Time: 14:49 Bed 10 Private MD: Diagnosis: Pain in right hand-index finger;Superficial foreign body of fingers Presentation: 12/02 15:01 Chief complaint: Patient states: RIGHT INDEX FINGER INJURY 3 WEEKS AGO. POKED BY A db FISH. STILL HAS PAIN. Coronavirus screen: Client denies travel out of the [place] in the last 14 days. At this time, the client does not indicate any symptoms associated with coronavirus-19. Ebola Screen: Patient negative for fever greater than or equal to 101.5 degrees Fahrenheit, and additional compatible Ebola Virus Disease symptoms Patient denies exposure to infectious person. Patient denies travel to an Ebola-affected area in the 21 days before illness onset. No symptoms or risks identified at this time. Initial Sepsis Screen: Does the patient meet any 2 criteria? No. Patient's initial sepsis screen is negative. Does the patient have a suspected source of infection? No. Patient's initial sepsis screen is negative. Risk Assessment: Do you want to hurt yourself or someone else? Patient reports no desire to harm self or others. Onset of symptoms was December 02, 2023. 15:01 Method Of Arrival: Ambulatory db 15:01 Acuity: DANYA 4 db Triage Assessment: 15:04 General: Appears in no apparent distress. comfortable, Behavior is calm, cooperative. db Pain: Complains of pain in right hand. Musculoskeletal: Circulation, motion, and sensation intact. Capillary refill < 3 seconds. Injury Description: Puncture sustained to right hand. Historical: - Allergies: 15:04 No Known Allergies; db - PMHx: 15:04 Anxiety; Hypercholesterolemia; db - PSHx: 15:04 back; db - Immunization history:: Adult Immunizations unknown. - Social history:: Smoking status: Patient denies any tobacco usage or history of. Screenin:25 [facility] ED Fall Risk Assessment (Adult) History of falling in the last 3 months, ph including since admission No falls in past 3 months (0 pts) Score/Fall Risk Level 0 - 2 = Low Risk Oriented to surroundings, Maintained a safe environment, Provided non-skid footwear, Hourly rounding (assess needs \T\ fall precautionary measures) done. Abuse screen: Denies threats or abuse. Denies injuries from another. Nutritional screening: No deficits noted. Tuberculosis screening: No symptoms or risk factors identified. Assessment: 13:30 General: Appears in no apparent distress. comfortable, well groomed, Behavior is calm, ph cooperative, appropriate for age, Denies fever. Pain: Complains of pain in palmar aspect of distal phalanx of right index finger. Derm: Skin is pink, warm \T\ dry. Musculoskeletal: callus noted on R index finger, no redness, swelling or drainage noted. Vital Signs: 15:01 BP 141 / 92; Pulse 75; Resp 16; Temp 98.6(O); Pulse Ox 97% ; Weight 61.23 kg; Height 5 db ft. 3 in. ; 15:01 Body Mass Index 23.91 (61.23 kg, 160.02 cm) db ED Course: 14:57 Patient arrived in ED. kj1 14:59 Olivia Freeman FNP-C is [facility]. kb 14:59 Hao Matthews DO is Attending Physician. kb 15:04 Triage completed. db 15:04 Arm band placed on right wrist. Patient placed in waiting room. db 15:19 Lexi Smith, RN is Primary Nurse. ph 15:25 Patient has correct armband on for positive identification. Bed in low position. Call ph light in reach. Side rails up X 1. Door closed. Noise minimized. 15:35 Hand Right 3 View XRAY In Process Unspecified. EDMS 16:14 No provider procedures requiring assistance completed. Patient did not have IV access ph during this emergency room visit. Administered Medications: No medications were administered Medication: 16:14 VIS not applicable for this client. ph Outcome: 15:49 Discharge ordered by MD. kb 16:14 Discharged to home ambulatory, ph 16:14 Condition: good 16:14 Discharge instructions given to patient, Instructed on discharge instructions, follow up and referral plans. Demonstrated understanding of instructions, follow-up care, 16:15 Patient left the ED. ph Signatures: Dispatcher [employer] EDMS Olivia Freeman FNP-C FNP-Ckb Hall, Patricia, RN RN Rosa Freeman kj1 Wright, Aby, RN RN db Corrections: (The following items were deleted from the chart) 15:05 15:04 Arm band placed on right wrist. Patient placed in an exam room, db db
--- NOTE | 2023-12-02 15:50 | EDPHYS ---
Physician Documentation [facility] Name: Pipo Fabian Age: 78 yrs Sex: Male : 1945 Arrival Date: 12/02/2023 Time: 14:49 Bed 10 Private MD: ED Physician Hao Matthews HPI: 12/02 15:19 This 78 yrs old Male presents to ER via Ambulatory with complaints of Finger kb Injury. 15:19 Pt is a 78 year old male who presents with pain to the tip of right index finger. kb States he was stuck in the finger by a fish 3 weeks ago and the pain has been present since then. Denies redness, swelling, drainage, fever. . Historical: - Allergies: 15:04 No Known Allergies; db - PMHx: 15:04 Anxiety; Hypercholesterolemia; db - PSHx: 15:04 back; db - Immunization history:: Adult Immunizations unknown. - Social history:: Smoking status: Patient denies any tobacco usage or history of. ROS: 15:19 Constitutional: Negative for fever, chills, and weight loss, kb 15:19 MS/extremity: Positive for pain, of the palmar aspect of distal phalanx of right index finger, 15:19 All other systems are negative, Exam: 15:19 Constitutional: This is a well developed, well nourished patient who is awake, alert, kb and in no acute distress. Head/Face: Normocephalic, atraumatic. ENT: Moist Mucous membranes Cardiovascular: Regular rate Respiratory: Respirations even and unlabored. No increased work of breathing. Talking in full sentences Skin: Warm, dry with normal turgor. Normal color. MS/ Extremity: Pulses equal, no cyanosis. Neurovascular intact. Full, normal range of motion. Neuro: Awake and alert, GCS 15, oriented to person, place, time, and situation. Moves all extremities. Normal gait. Vital Signs: 15:01 BP 141 / 92; Pulse 75; Resp 16; Temp 98.6(O); Pulse Ox 97% ; Weight 61.23 kg; Height 5 db ft. 3 in. ; 15:01 Body Mass Index 23.91 (61.23 kg, 160.02 cm) db MDM: 14:59 Patient medically screened. kb 15:46 Data reviewed: vital signs, nurses notes. kb 15:46 Differential diagnosis: closed fracture, contusion, foreign body. Counseling: I had a kb detailed discussion with the patient and/or guardian regarding the historical points, exam findings, and any diagnostic results supporting the discharge/admit diagnosis, the need for outpatient follow up, a family practitioner, to return to the emergency department if symptoms worsen or persist or if there are any questions or concerns that arise at home. 15:56 Independent interpretation of the following test(s) in the Emergency Department X-Ray: kb My interpretation is foreign body noted to tip of second digit. 12/02 15:01 Order name: Hand Right 3 View XRAY; Complete Time: 15:46 kb Administered Medications: No medications were administered Disposition: 15:30 I was immediately available on-site in the Emergency Department for consultation in the ms3 care of the patient. Disposition Summary: 12/02/23 15:49 Discharge Ordered Notes: Location: Home kb Condition: Stable kb Diagnosis - Pain in right hand - index finger kb - Superficial foreign body of fingers kb Followup: kb - With: Emergency Department - When: As needed - Reason: Worsening of condition Followup: kb - With: Private Physician - When: 2 - 3 days - Reason: Recheck today's complaints, Continuance of care, Re-evaluation by your physician Discharge Instructions: - Discharge Summary Sheet kb - Musculoskeletal Pain kb - Skin Foreign Body kb Forms: - Medication Reconciliation Form kb - Thank You Letter kb - Antibiotic Education kb - Prescription Opioid Use kb - Patient Portal Instructions kb - Leadership Thank You Letter kb Signatures: Dispatcher [employer] Olivia Rivera, JENNIFER-C [employer]IST DYER-Hao Kothari DO DO ms3 Aby Wright, RN RN db
[2023-12-02 16:27] VITALS: BP 141/92; TEMP 98.6; O2SAT 97
== END ==
LOC: ER 14:49
DX: S60.450A Superficial foreign body of right index finger, initial encounter (principal)